=== PATIENT | male | born 1950 | race Caucasian/White ===

== ENCOUNTER 2016-11-20 13:19 | Inpatient (IN) ==
[2016-11-20] MEDS ORDERED: Nitroglycerin 1 INCH/GM PACKET TP ONE (13:37)
[2016-11-20] MEDS ORDERED: Furosemide 40 MG/4 ML VIAL IVP ONE (13:42)
[2016-11-20] MEDS ORDERED: Ipratropium/Albuterol Neb 3 ML IH ONE (13:46)
--- NOTE | 2016-11-20 13:46 | Emergency Department Note ---
Disposition Clinical Impression: Hypoxia CHF exacerbation Qualifiers: Congestive heart failure type: systolic Qualified Code(s): I50.23 - Acute on chronic systolic (congestive) heart failure Atrial fibrillation Qualifiers: Atrial fibrillation type: chronic Qualified Code(s): I48.2 - Chronic atrial fibrillation Disposition: Admitted As Inpatient Condition: Fair Time of Disposition: 16:43 SOB HPI - General Chief Complaint: ED Shortness of Breath/Dyspnea Stated Complaint: Edema ,MIKE Time Seen by Provider: 11/20/16 13:35 Source: patient Limitations: no limitations Nursing Notes Reviewed: Yes Vital Signs Reviewed: Yes - History of Present Illness 66-year-old male with PMH of CHF, atrial fibrillation, tobacco use presents to the emergency department complaining of "fluid on my lungs" patient states that he was hospitalized for the same thing in August at which time he was told he has CHF and he has been taking furosemide 40 mg twice a day. He states that over the last few weeks he has had increased sleep breathing especially when he goes up stairs, stopping [address] up[address] The shortness of breath also interferes with activities of daily living. He states that his breathing is better when he is lying flat or sitting down. He also notes that he has been retaining fluid in his abdomen and his legs "feel like rocks." On arrival he is tachycardic with heart rate in the 120s to 130s and hypertensive and short of breath. Patient states that he is still trying to relax after arrival. - Related Data Home Medications Medication Instructions Recorded Confirmed Aspirin Enteric Coated [Aspirin EC] 81 mg PO DAILY 09/05/16 09/25/16 Garcinia Cambogia 1 each PO DAILY 09/05/16 09/25/16 Multivit-Min/FA/Lycopen/Lutein 1 each PO DAILY 09/05/16 09/25/16 [Centrum Silver Tablet] Furosemide [Lasix] 40 mg PO BID 11/20/16 11/20/16 Lisinopril [Zestril] 5 mg PO DAILY 11/20/16 11/20/16 Previous Rx's Medication Instructions Recorded Atorvastatin [Lipitor] 40 mg PO HS 30 Days 09/07/16 Carvedilol [Coreg] 12.5 mg PO BIDWM 30 Days 09/07/16 Warfarin [Coumadin] 5 mg PO 1800 14 Days 09/07/16 Allergies Allergy/AdvReac Type Severity Reaction Status Date / Time No Known Allergies Allergy Verified 09/05/16 13:29 Constitutional: Reports: weight change. Denies: fever, chills Cardiovascular: Reports: chest pain, palpitations, dyspnea on exertion, edema Respiratory: Reports: cough, dyspnea Gastrointestinal: Reports: abdominal pain. Denies: nausea, vomiting Past Medical History - Past Medical History Source: patient Medical history: Reports: cancer, cardiomyopathy, CHF, coronary artery disease, hyperlipidemia, hypertension Surgical history: Reports: no surgical history Psychiatric history: Reports: no psych history - Social History Smoking Status: Current every day smoker Smokeless Tobacco Status: No Alcohol use: Reports: occasionally Drug use: Reports: none Physical Exam - General Limitations: no limitations General appearance: alert, anxious, in distress, obese - Head Head exam: atraumatic, normocephalic, normal inspection - ENT ENT exam: mucous membranes moist - Neck Neck exam: Present: normal inspection, full ROM, trachea midline - Chest Chest inspection: Present: normal inspection, symmetric chest wall rise - Respiratory Respiratory exam: Present: respiratory distress, wheezes - Expanded Respiratory Exam Location: wheezes: Left, Right, rhonchi: Left, Right - Cardiovascular Cardiovascular exam: Present: tachycardia - Abdominal Exam Abdominal exam: Present: tenderness, distention, normal bowel sounds Abdominal tenderness: Present: diffuse - Extremities Exam Extremities exam: Present: pedal edema - Expanded Lower Extremity Exam Lower leg exam: Present: tenderness, swelling. Absent: crepitus, erythema Neurovascular/Tendon exam: Absent: pulse deficit - Neurological Exam Neurological exam: Present: alert, oriented X3. Absent: motor sensory deficit - Psychiatric Psychiatric exam: Present: normal affect, normal mood - Skin Skin exam: Present: warm, dry, intact, normal color. Absent: diaphoresis, erythema Course Course Narrative: 66-year-old male with PMH of CHF, atrial fibrillation, tobacco use presents to the emergency department complaining of "fluid on my lungs" patient states that he was hospitalized for the same thing in August at which time he was told he has CHF and he has been taking furosemide 40 mg twice a day. He states that over the last few weeks he has had increased sleep breathing especially when he goes up stairs. He states that his breathing is better when he is lying flat or sitting down. He also notes that he has been retaining fluid in his abdomen and his legs "feel like rocks." On arrival he is tachycardic with heart rate in the 120s to 130s and hypertensive and short of breath. Patient states that he is still trying to relax after arrival. He is able to converse in both EKG reveals the patient is in A. fib with RVR. His oxygen saturation 78% on room air. Patient was placed on oxygen via nasal cannula to order chest pain lab work ordered, chest x-ray, 80 mg of Lasix IV push and Cardizem 20 mg IV push. On reentering the room the patient's heart rate was noted to be in the 90's, will hold on Cardizem for now and monitor rate. Upon review of patient's previous admission an echo revealed severe LV systolic dysfunction with an LVEF of 30% with global LV hypokinesis. He presented with similar symptoms at that time including edema bilateral lower extremities. - Reevaluation(s) Reevaluation #1: Patient states that he is able to breathe better after breathing treatment. His heart rate continues to stay in the 90s and his blood pressure is in the 120s. The patient remains hypoxic on 3 L of oxygen via nasal cannula with oxygen saturations 89-90%. Potassium noted to be 3.4. Since we have given the patient a high dose of lasix, we will replace potassium with 40meq oral potassium. Patient also has an INR of 5.4. Was discussed with the patient and he is agreeable to admission this time due to continued shortness of breath, hypoxia on 3 L of oxygen and fluid overload. Will contact the hospitalist service for admission of the patient. Time: 15:04 - Consultations Consultation #1: The patient's case was discussed with Dr. Em. She has accepted the patient for admission to hospitalist service. Time: 15:12 Vital Signs Temperature 98.8 F 11/20/16 13:23 Pulse Rate 110 11/20/16 13:23 Respiratory Rate 18 11/20/16 13:23 Blood Pressure 149/101 11/20/16 13:23 O2 Sat by Pulse Oximetry 94 L 11/20/16 13:23 Temperature 98.8 F 11/20/16 13:23 Pulse Rate 97 11/20/16 15:29 Respiratory Rate 14 11/20/16 15:29 Blood Pressure 120/101 11/20/16 15:29 O2 Sat by Pulse Oximetry 91 L 11/20/16 15:29 Oxygen Delivery Oxygen Delivery Nasal Cannula Shortness of Breath/Dyspnea - Medical Records Medical records reviewed: Yes I reviewed the patient's medical records. - Lab Data Lab results reviewed: Yes I reviewed the patient's lab results. Result diagrams: 11/20/16 13:50 11/20/16 13:50 Lab Results 11/20/16 11/20/16 11/20/16 Range/Units 13:50 13:50 13:50 WBC 7.2 (4.3-11.1) K/mcL RBC 4.00 L (4.19-5.50) M/mcL Hgb 12.3 L (12.9-16.9) g/dL Hct 38.8 (37.5-50.1) % MCV 97.0 (83.0-100.0) fL MCH 30.8 (28.0-33.3) pg MCHC 31.7 (31.6-35.5) g/dL RDW 21.2 H (11.5-14.5) % Plt Count 226 (140-400) K/mcL MPV 9.8 (9.4-12.4) fL Immature Gran % 0.4 (0-4) % Seg Neutrophils % 68.9 % Lymphocytes % 15.0 % Monocytes % 14.3 % Eosinophils % 0.8 % Basophils % 0.6 % Neutrophils # 4.9 (1.6-8.9) K/mcL Lymphocytes # 1.1 (0.6-4.6) K/mcL Monocytes # 1.0 (0.0-1.3) K/mcL Eosinophils # 0.1 (0.0-0.6) K/mcL Basophils # 0.0 (0.0-0.2) K/mcL Nucleated RBCs/100 WBC 0.8 H (0) /100 WBC PT 60.9 H* (9.4-12.1) Seconds INR 5.4 H* APTT 41.9 H (26.0-36.0) Seconds Sodium (136-145) mEq/L Potassium (3.5-4.5) mEq/L Chloride (98-109) mEq/L Carbon Dioxide (19-29) mEq/L BUN (8-26) mg/dL Creatinine (0.72-1.25) mg/dL Est GFR ( Amer) (> 60) Est GFR (Non-Af Amer) (> 60) BUN/Creatinine Ratio (6-26) Glucose (70-99) mg/dL Calculated Osmolality (280-300) Calcium (8.6-10.8) mg/dL Troponin I (0-0.03) ng/mL B-Natriuretic Peptide 1218 H (0-100) pg/mL 11/20/16 11/20/16 Range/Units 13:50 13:50 WBC (4.3-11.1) K/mcL RBC (4.19-5.50) M/mcL Hgb (12.9-16.9) g/dL Hct (37.5-50.1) % MCV (83.0-100.0) fL MCH (28.0-33.3) pg MCHC (31.6-35.5) g/dL RDW (11.5-14.5) % Plt Count (140-400) K/mcL MPV (9.4-12.4) fL Immature Gran % (0-4) % Seg Neutrophils % % Lymphocytes % % Monocytes % % Eosinophils % % Basophils % % Neutrophils # (1.6-8.9) K/mcL Lymphocytes # (0.6-4.6) K/mcL Monocytes # (0.0-1.3) K/mcL Eosinophils # (0.0-0.6) K/mcL Basophils # (0.0-0.2) K/mcL Nucleated RBCs/100 WBC (0) /100 WBC PT (9.4-12.1) Seconds INR APTT (26.0-36.0) Seconds Sodium 136 (136-145) mEq/L Potassium 3.4 L (3.5-4.5) mEq/L Chloride 95 L (98-109) mEq/L Carbon Dioxide 30 H (19-29) mEq/L BUN 8 (8-26) mg/dL Creatinine 0.76 (0.72-1.25) mg/dL Est GFR ( Amer) > 60 (> 60) Est GFR (Non-Af Amer) > 60 (> 60) BUN/Creatinine Ratio 11 (6-26) Glucose 124 H (70-99) mg/dL Calculated Osmolality 282 (280-300) Calcium 8.4 L (8.6-10.8) mg/dL Troponin I 0.04 H* (0-0.03) ng/mL B-Natriuretic Peptide (0-100) pg/mL - Radiology Data Radiology results reviewed: Yes I reviewed the patient's radiology results. Chest X-Ray 11/20/16 13:38 IMPRESSION: Cardiomegaly with pulmonary edema as well as right pleural effusion. D/ / Samantha Yeung Cha, MD / Samantha Yeung Cha, MD Interpreting Provider: Samantha Yeung Cha, MD - EKG Data EKG attestation: Yes I reviewed and interpreted this EKG. EKG results narrative: Atrial fibrillation with RVR. ventricular rate 126 bpm, QRS 104ms, QT 318ms, Interpretation: Reports: unchanged when compared to prior tracing (date)
[2016-11-20 14:03] LABS: Basophils % 0.6 %; Eosinophils # 0.1 K/mcL (0.0-0.6); Eosinophils % 0.8 %; Hematocrit 38.8 % (37.5-50.1); Hemoglobin 12.3 g/dL (12.9-16.9); Immature Granulocytes % 0.4 % (0-4); Lymphocytes # 1.1 K/mcL (0.6-4.6); Mean Corpuscular HGB Conc 31.7 g/dL (31.6-35.5); Mean Corpuscular Hemoglobin 30.8 pg (28.0-33.3); Mean Platelet Volume 9.8 fL (9.4-12.4); Monocytes % 14.3 %; Neutrophils # 4.9 K/mcL (1.6-8.9); Nucleated Red Blood Cells 0.8 /100 WBC (0); Platelet Count 226 K/mcL (140-400); Red Cell Distribution Width 21.2 % (11.5-14.5); Segmented Neutrophils % 68.9 %
[2016-11-20 14:06] LABS: Activated Partial Thrombo Time 41.9 Seconds (26.0-36.0)
[2016-11-20 14:11] LABS: BUN/Creatinine Ratio 11 (6-26); Blood Urea Nitrogen 8 mg/dL (8-26); Calcium 8.4 mg/dL (8.6-10.8); Carbon Dioxide 30 mEq/L (19-29); Chloride 95 mEq/L (98-109); Glucose 124 mg/dL (70-99); Osmolality,Calculated 282 (280-300); Potassium 3.4 mEq/L (3.5-4.5); Sodium 136 mEq/L (136-145); eGFR For African Americans > 60 (> 60); eGFR For Non-African Americans > 60 (> 60)
[2016-11-20 14:20] LABS: INR 5.4; Prothrombin Time 60.9 Seconds (9.4-12.1)
[2016-11-20] MEDS ORDERED: Potassium Chloride Elixir 20 MEQ/15 ML UDC PO ONE (14:53)
--- NOTE | 2016-11-20 15:08 | Emergency Department Note ---
Disposition Clinical Impression: CHF exacerbation, Hypoxia, Atrial fibrillation Disposition: Admitted As Inpatient Condition: Fair General Adult HPI - General Chief complaint: ED Shortness of Breath/Dyspnea Stated complaint: Edema ,MIKE Time Seen by Provider: 11/20/16 13:35 Source: patient Limitations: no limitations - History of Present Illness Pain Scale: 0 - Related Data Home Medications Medication Instructions Recorded Confirmed Aspirin Enteric Coated [Aspirin EC] 81 mg PO DAILY 09/05/16 11/20/16 Garcinia Cambogia 1 each PO DAILY 09/05/16 11/20/16 Multivit-Min/FA/Lycopen/Lutein 1 each PO DAILY 09/05/16 11/20/16 [Centrum Silver Tablet] Furosemide [Lasix] 40 mg PO BID 11/20/16 11/20/16 Lisinopril [Zestril] 5 mg PO DAILY 11/20/16 11/20/16 Previous Rx's Medication Instructions Recorded Atorvastatin [Lipitor] 40 mg PO HS 30 Days 09/07/16 Carvedilol [Coreg] 12.5 mg PO BIDWM 30 Days 09/07/16 Warfarin [Coumadin] 5 mg PO 1800 14 Days 09/07/16 Allergies Allergy/AdvReac Type Severity Reaction Status Date / Time No Known Allergies Allergy Verified 09/05/16 13:29 Constitutional: Reports: weight change. Denies: fever, chills Cardiovascular: Reports: chest pain, palpitations, dyspnea on exertion, edema Respiratory: Reports: cough, dyspnea Gastrointestinal: Reports: abdominal pain. Denies: nausea, vomiting Past Medical History - Past Medical History Medical history: Reports: cancer, cardiomyopathy, CHF, coronary artery disease, hyperlipidemia, hypertension Surgical history: Reports: no surgical history Psychiatric history: Reports: no psych history - Social History Smoking Status: Current every day smoker Smokeless Tobacco Status: No Alcohol use: Reports: occasionally Drug use: Reports: none Physical Exam - General Limitations: no limitations General appearance: alert, anxious, in distress, obese Course - Reevaluation(s) Reevaluation #1: I saw the patient with the resident, Dr. Dwyer. Patient presents with a complaint of shortness of breath it has been building up over the past couple weeks but particularly worse over the past couple of days. He notes a lot of edema buildup in his legs. He has been short of breath. He is having trouble even walking up his stairs stating that he has to stop 4 times to get to the top of the steps. On physical exam is got rales in his lungs and is a lot of edema in his legs. We see that he is in atrial fibrillation and initially was RVR but seemed to go down to regular rate with oxygenation. Chest x-ray shows pulmonary edema. He has an oxygen requirement. We gave him 80 of Lasix IV. We will give him some nitro paste (initially he refused nitro paste but after I had a talk with him about its usefulness he agreed to take it.). We will arrange to have the patient admitted to the hospital. Time: 15:08 Vital Signs Temperature 98.8 F 11/20/16 13:23 Pulse Rate 110 11/20/16 13:23 Respiratory Rate 18 11/20/16 13:23 Blood Pressure 149/101 11/20/16 13:23 O2 Sat by Pulse Oximetry 94 L 11/20/16 13:23 Temperature 97.6 F 11/22/16 07:11 Pulse Rate 93 11/22/16 07:11 Respiratory Rate 16 11/22/16 07:11 Blood Pressure 105/61 11/22/16 07:11 O2 Sat by Pulse Oximetry 87 L 11/22/16 07:11 Oxygen Delivery Oxygen Delivery Nasal Cannula Medical Decision Making - Lab Data Result diagrams: 11/21/16 04:11 11/22/16 05:21 Lab Results 11/20/16 11/20/16 11/20/16 Range/Units 13:50 13:50 13:50 WBC 7.2 (4.3-11.1) K/mcL RBC 4.00 L (4.19-5.50) M/mcL Hgb 12.3 L (12.9-16.9) g/dL Hct 38.8 (37.5-50.1) % MCV 97.0 (83.0-100.0) fL MCH 30.8 (28.0-33.3) pg MCHC 31.7 (31.6-35.5) g/dL RDW 21.2 H (11.5-14.5) % Plt Count 226 (140-400) K/mcL MPV 9.8 (9.4-12.4) fL Immature Gran % 0.4 (0-4) % Seg Neutrophils % 68.9 % Lymphocytes % 15.0 % Monocytes % 14.3 % Eosinophils % 0.8 % Basophils % 0.6 % Neutrophils # 4.9 (1.6-8.9) K/mcL Lymphocytes # 1.1 (0.6-4.6) K/mcL Monocytes # 1.0 (0.0-1.3) K/mcL Eosinophils # 0.1 (0.0-0.6) K/mcL Basophils # 0.0 (0.0-0.2) K/mcL Nucleated RBCs/100 WBC 0.8 H (0) /100 WBC Reactive Lymphocytes (Not Present) Platelet Estimate (Normal) Large Platelets (Not Present) Polychromasia (Not Present) Hypochromasia (Not Present) Anisocytosis (Not Present) Microcytosis (Not Present) Macrocytosis (Not Present) PT 60.9 H* (9.4-12.1) Seconds INR 5.4 H* APTT 41.9 H (26.0-36.0) Seconds Sodium (136-145) mEq/L Potassium (3.5-4.5) mEq/L Chloride (98-109) mEq/L Carbon Dioxide (19-29) mEq/L BUN (8-26) mg/dL Creatinine (0.72-1.25) mg/dL Est GFR ( Amer) (> 60) Est GFR (Non-Af Amer) (> 60) BUN/Creatinine Ratio (6-26) Glucose (70-99) mg/dL Calculated Osmolality (280-300) Calcium (8.6-10.8) mg/dL Phosphorus (2.3-4.7) mg/dL Magnesium (1.6-2.6) mg/dL Troponin I (0-0.03) ng/mL B-Natriuretic Peptide 1218 H (0-100) pg/mL 11/20/16 11/20/16 11/20/16 Range/Units 13:50 13:50 13:50 WBC (4.3-11.1) K/mcL RBC (4.19-5.50) M/mcL Hgb (12.9-16.9) g/dL Hct (37.5-50.1) % MCV (83.0-100.0) fL MCH (28.0-33.3) pg MCHC (31.6-35.5) g/dL RDW (11.5-14.5) % Plt Count (140-400) K/mcL MPV (9.4-12.4) fL Immature Gran % (0-4) % Seg Neutrophils % % Lymphocytes % % Monocytes % % Eosinophils % % Basophils % % Neutrophils # (1.6-8.9) K/mcL Lymphocytes # (0.6-4.6) K/mcL Monocytes # (0.0-1.3) K/mcL Eosinophils # (0.0-0.6) K/mcL Basophils # (0.0-0.2) K/mcL Nucleated RBCs/100 WBC (0) /100 WBC Reactive Lymphocytes (Not Present) Platelet Estimate (Normal) Large Platelets (Not Present) Polychromasia (Not Present) Hypochromasia (Not Present) Anisocytosis (Not Present) Microcytosis (Not Present) Macrocytosis (Not Present) PT (9.4-12.1) Seconds INR APTT (26.0-36.0) Seconds Sodium 136 (136-145) mEq/L Potassium 3.4 L (3.5-4.5) mEq/L Chloride 95 L (98-109) mEq/L Carbon Dioxide 30 H (19-29) mEq/L BUN 8 (8-26) mg/dL Creatinine 0.76 (0.72-1.25) mg/dL Est GFR ( Amer) > 60 (> 60) Est GFR (Non-Af Amer) > 60 (> 60) BUN/Creatinine Ratio 11 (6-26) Glucose 124 H (70-99) mg/dL Calculated Osmolality 282 (280-300) Calcium 8.4 L (8.6-10.8) mg/dL Phosphorus (2.3-4.7) mg/dL Magnesium 1.5 L (1.6-2.6) mg/dL Troponin I 0.04 H* (0-0.03) ng/mL B-Natriuretic Peptide (0-100) pg/mL 11/21/16 11/21/16 11/21/16 Range/Units 04:11 04:11 04:11 WBC 7.7 (4.3-11.1) K/mcL RBC 3.75 L (4.19-5.50) M/mcL Hgb 11.8 L (12.9-16.9) g/dL Hct 36.2 L (37.5-50.1) % MCV 96.5 (83.0-100.0) fL MCH 31.5 (28.0-33.3) pg MCHC 32.6 (31.6-35.5) g/dL RDW 21.3 H (11.5-14.5) % Plt Count 214 (140-400) K/mcL MPV 9.8 (9.4-12.4) fL Immature Gran % 0.5 (0-4) % Seg Neutrophils % 61.5 % Lymphocytes % 17.7 % Monocytes % 18.6 % Eosinophils % 0.9 % Basophils % 0.8 % Neutrophils # 4.7 (1.6-8.9) K/mcL Lymphocytes # 1.4 (0.6-4.6) K/mcL Monocytes # 1.4 H (0.0-1.3) K/mcL Eosinophils # 0.1 (0.0-0.6) K/mcL Basophils # 0.1 (0.0-0.2) K/mcL Nucleated RBCs/100 WBC 0.9 H (0) /100 WBC Reactive Lymphocytes Present A (Not Present) Platelet Estimate Normal (Normal) Large Platelets Present A (Not Present) Polychromasia 1+ A (Not Present) Hypochromasia Present A (Not Present) Anisocytosis 2+ A (Not Present) Microcytosis Present A (Not Present) Macrocytosis Present A (Not Present) PT 50.1 H* (9.4-12.1) Seconds INR 4.4 H* APTT (26.0-36.0) Seconds Sodium 137 (136-145) mEq/L Potassium 3.4 L (3.5-4.5) mEq/L Chloride 98 (98-109) mEq/L Carbon Dioxide 30 H (19-29) mEq/L BUN 11 (8-26) mg/dL Creatinine 0.79 (0.72-1.25) mg/dL Est GFR ( Amer) > 60 (> 60) Est GFR (Non-Af Amer) > 60 (> 60) BUN/Creatinine Ratio 14 (6-26) Glucose 99 (70-99) mg/dL Calculated Osmolality 283 (280-300) Calcium 8.2 L (8.6-10.8) mg/dL Phosphorus 3.6 (2.3-4.7) mg/dL Magnesium 1.4 L (1.6-2.6) mg/dL Troponin I (0-0.03) ng/mL B-Natriuretic Peptide (0-100) pg/mL 11/21/16 11/21/16 Range/Units 04:11 04:11 WBC (4.3-11.1) K/mcL RBC (4.19-5.50) M/mcL Hgb (12.9-16.9) g/dL Hct (37.5-50.1) % MCV (83.0-100.0) fL MCH (28.0-33.3) pg MCHC (31.6-35.5) g/dL RDW (11.5-14.5) % Plt Count (140-400) K/mcL MPV (9.4-12.4) fL Immature Gran % (0-4) % Seg Neutrophils % % Lymphocytes % % Monocytes % % Eosinophils % % Basophils % % Neutrophils # (1.6-8.9) K/mcL Lymphocytes # (0.6-4.6) K/mcL Monocytes # (0.0-1.3) K/mcL Eosinophils # (0.0-0.6) K/mcL Basophils # (0.0-0.2) K/mcL Nucleated RBCs/100 WBC (0) /100 WBC Reactive Lymphocytes (Not Present) Platelet Estimate (Normal) Large Platelets (Not Present) Polychromasia (Not Present) Hypochromasia (Not Present) Anisocytosis (Not Present) Microcytosis (Not Present) Macrocytosis (Not Present) PT (9.4-12.1) Seconds INR APTT (26.0-36.0) Seconds Sodium (136-145) mEq/L Potassium (3.5-4.5) mEq/L Chloride (98-109) mEq/L Carbon Dioxide (19-29) mEq/L BUN (8-26) mg/dL Creatinine (0.72-1.25) mg/dL Est GFR ( Amer) (> 60) Est GFR (Non-Af Amer) (> 60) BUN/Creatinine Ratio (6-26) Glucose (70-99) mg/dL Calculated Osmolality (280-300) Calcium (8.6-10.8) mg/dL Phosphorus (2.3-4.7) mg/dL Magnesium (1.6-2.6) mg/dL Troponin I 0.04 H* (0-0.03) ng/mL B-Natriuretic Peptide 1989 H (0-100) pg/mL Attestation Statement - Attestation Attestation: I, Dr. Gordon, examined this patient [id number] and my medical decision- making was reviewed with Dr. rollins, Resident Physician. I agree with the documented findings, disposition and treatment plan as described except to the extent set forth below. Please see my progress notes for details.
[2016-11-20] MEDS ORDERED: Ondansetron 4 MG/2 ML VIAL IVP PRN (16:59)
[2016-11-20] MEDS ORDERED: Naloxone 0.4 MG/ML INJ IVP PRN (16:59)
[2016-11-20] MEDS ORDERED: Acetaminophen 325 MG TABLET PO PRN (16:59)
--- NOTE | 2016-11-20 17:07 | Internal Med History&Physical ---
Date of Encounter: 11/20/16 Time of Encounter: 16:30 Assessment and Plan (1) Acute respiratory failure with hypoxemia Current visit: Yes Status: Acute Secondary to acute systolic heart failure exacerbation with right pleural effusion. Patient desat to 78% on room air in the ED. Chest x-ray revealed cardiomegaly with pulmonary edema and right pleural effusion. Continue IV Lasix twice a day, fluid restriction, coreg, strict I/O. (2) Acute systolic heart failure Current visit: Yes Status: Acute August 2016 echocardiogram revealed severely LV systolic dysfunction, EF 30%, global LV hypokinesis, moderate to severely dilated, severely dilated right atrium. Patient is known to be noncompliant with fluid and dietary restrictions. Continue Lasix, beta arya, fluid restriction, strict ins and outs. (3) Atrial flutter with rapid ventricular response Current visit: Yes Status: Acute ED EKG reviewed by me and showed atrial flutter with a rapid ventricular response heart rate 124. RVR secondary to pulmonary edema. After IV Lasix and good diuresis, his heart rate is down to 91. Continue IV Lasix and resume home dose of Coreg. (4) Supratherapeutic INR Current visit: Yes Status: Acute INR is 5.4. Patient takes warfarin at home. No bleeding. No recent head injuries. Hold home dose of warfarin. Close monitoring of INR. (5) Pleural effusion Current visit: No Status: Acute Conjunctivae show right-sided pleural effusion. Likely secondary to heart failure exacerbation. Plan as above (6) Hypertension Current visit: No Status: Acute Blood pressure on admission was 149/101. High blood pressure secondary to fluid overload. After IV Lasix, his blood pressure is now 137/75. Continue home dose of lisinopril. Qualifiers: Hypertension type: essential hypertension Qualified Code(s): I10 - Essential (primary) hypertension (7) Nonischemic cardiomyopathy Current visit: No Status: Acute 2013 -left heart catheterization showing mild to moderate CAD and LVEF 30%. patient presented with NSTEMI. plan as above. (8) Lymphoma Current visit: No Status: Chronic Qualifiers: Lymphoma type: unspecified type Lymphoma site: unspecified region Qualified Code(s): C85.90 - Non-Hodgkin lymphoma, unspecified, unspecified site (9) Obesity Current visit: No Status: Acute BMI 34. Outpatient weight loss program. Qualifiers: Obesity type: unspecified obesity type Obesity severity: non-morbid Qualified Code(s): E66.9 - Obesity, unspecified Internal Medicine - H&P: HPI Chief complaint: Shortness of breath and 3 Toprol for the past 3 weeks. Admitted From: Home Plans for Post Hospital Care: Home History of present illness: Mr. Ayala is a 66 year old male with past medical history of severe systolic heart failure with LVEF 30% in August 2016, NICMP, atrial flutter on Coumadin , CAD, hypertension, PVD, and lymphoma. patient admits to being noncompliant with fluid restriction. He drinks a lot of rum and coke. For the past 3 weeks , the patient develped progressive shortness of breath associated with fluid overload in his leg, abdomen and lungs. positive productive cough of clear sputum. No hemoptysis. No chest pain. Mild abdominal pain from fluid building up in his abdomen He did not see his primary care physician because he knew his doctor will send him to the ER. no bleeding. No nausea. No vomiting. No syncope. No focal deficit. No vision problems. Patient is adopted. In our ED, patient was hypoxemic SaO2 78% on room air, went up to 92% on 3 L nasal cannula, EKG show Atrial flutter with rapid ventricular response, rate 124. Patient received Lasix 80 mg IV 1 with good diuresis. August 2016 echocardiogram revealed severely LV systolic dysfunction, EF 30%, global LV hypokinesis, moderate to severely dilated, severely dilated right atrium. 2013 -left heart catheterization showing mild to moderate CAD and LVEF 30%. Past Med Surg Social Fam HX - Past Medical History Medical history: cancer, cardiomyopathy, CHF, coronary artery disease, hyperlipidemia, hypertension Psychiatric history: no psych history - Past Surgical History Surgical History: no surgical history - Social History Smoking Status: Current every day smoker Smokeless Tobacco Status: No Alcohol use: occasionally Drug use: none - Family History Mother Adopted: Yes Living Status: Still Living Internal Medicine - H&P: Meds Aspirin Enteric Coated [Aspirin EC] 81 mg PO DAILY 09/05/16 [History] Garcinia Cambogia 1 each PO DAILY 09/05/16 [History] Multivit-Min/FA/Lycopen/Lutein [Centrum Silver Tablet] 1 each PO DAILY 09/05/16 [History] Atorvastatin [Lipitor] 40 mg PO HS 30 Days 09/07/16 [Rx] Carvedilol [Coreg] 12.5 mg PO BIDWM 30 Days 09/07/16 [Rx] Warfarin [Coumadin] 5 mg PO 1800 14 Days 09/07/16 [Rx] Furosemide [Lasix] 40 mg PO BID 11/20/16 [History] Lisinopril [Zestril] 5 mg PO DAILY 11/20/16 [History] Allergies No Known Allergies Allergy (Verified 09/05/16 13:29) All Systems PM: A 10-system review of systems was performed and is negative for pertinent findings except as documented above in the HPI. - Constitutional Vitals: Temp Pulse Resp BP Pulse Ox 97.6 F 98 16 137/75 90 L 11/20/16 17:01 11/20/16 17:01 11/20/16 17:01 11/20/16 17:01 11/20/16 17:01 General appearance: Present: cooperative, A&O X 3, pleasant, no acute distress, obese, answers questions appropriately - Eye Eye exam: Present: PERRL, sclera anicteric - ENT ENT exam: Present: mucous membranes moist - Neck Neck exam general surgery: Present: supple, trachea midline. Absent: lymphadenopathy - Respiratory Additional comments: Decreased air entry right lung base. crackles AT Left lung base. No wheezes. - Cardiovascular Cardiovascular exam: Present: tachycardia - GI/Abdominal GI/Abdominal exam: Present: normal bowel sounds, soft. Absent: distended, tenderness Additional comments: Abdominal wall edema. - Extremities Exam Additional comments: 3+ LE edema up to the abdomen. - Back Exam Back exam: Absent: CVA tenderness (L), CVA tenderness (R) - Neurological Exam Neurological exam: Present: alert, oriented X3, no focal deficits. Absent: facial droop, speech deficit - Skin Skin exam: Present: intact Internal Med - H&P Results - Labs CBC & Chem 7: 11/20/16 13:50 11/20/16 13:50
[2016-11-20] MEDS: Furosemide 40 MG TABLET PO SCH (18:57)
[2016-11-21 04:47] LABS: Basophils # 0.1 K/mcL (0.0-0.2); Basophils % 0.8 %; Eosinophils # 0.1 K/mcL (0.0-0.6); Eosinophils % 0.9 %; Hematocrit 36.2 % (37.5-50.1); Hemoglobin 11.8 g/dL (12.9-16.9); Immature Granulocytes % 0.5 % (0-4); Lymphocytes # 1.4 K/mcL (0.6-4.6); Lymphocytes % 17.7 %; Mean Corpuscular HGB Conc 32.6 g/dL (31.6-35.5); Mean Corpuscular Hemoglobin 31.5 pg (28.0-33.3); Mean Corpuscular Volume 96.5 fL (83.0-100.0); Mean Platelet Volume 9.8 fL (9.4-12.4); Monocytes # 1.4 K/mcL (0.0-1.3); Monocytes % 18.6 %; Neutrophils # 4.7 K/mcL (1.6-8.9); Nucleated Red Blood Cells 0.9 /100 WBC (0); Platelet Count 214 K/mcL (140-400); Red Blood Count 3.75 M/mcL (4.19-5.50); Red Cell Distribution Width 21.3 % (11.5-14.5); Segmented Neutrophils % 61.5 %
[2016-11-21 04:54] LABS: BUN/Creatinine Ratio 14 (6-26); Blood Urea Nitrogen 11 mg/dL (8-26); Calcium 8.2 mg/dL (8.6-10.8); Carbon Dioxide 30 mEq/L (19-29); Chloride 98 mEq/L (98-109); Glucose 99 mg/dL (70-99); Magnesium 1.4 mg/dL (1.6-2.6); Osmolality,Calculated 283 (280-300); Phosphorous 3.6 mg/dL (2.3-4.7); Potassium 3.4 mEq/L (3.5-4.5); Sodium 137 mEq/L (136-145); eGFR For African Americans > 60 (> 60); eGFR For Non-African Americans > 60 (> 60)
[2016-11-21 04:58] LABS: INR 4.4; Prothrombin Time 50.1 Seconds (9.4-12.1)
[2016-11-21 05:22] LABS: Anisocytosis 2+ (Not Present); Hypochromasia Present (Not Present); Macrocytosis Present (Not Present)
[2016-11-21 05:23] LABS: Large Platelets Present (Not Present); Microcytosis Present (Not Present); Platelet Estimate Normal (Normal); Polychromasia 1+ (Not Present); Reactive Lymphocytes Present (Not Present)
[2016-11-21] MEDS: Furosemide 40 MG TABLET PO SCH (08:20)
[2016-11-21] MEDS: Aspirin Enteric Coated 81 MG Tablet PO SCH (08:20)
[2016-11-21] MEDS ORDERED: Furosemide 40 MG TABLET PO SCH ×2 (10:30→18:00)
--- NOTE | 2016-11-21 10:34 | Internal Med Progress Note ---
Date of Encounter: 11/21/16 Time of Encounter: 10:31 - Assessment and plan (1) Acute respiratory failure with hypoxemia Current Visit: Yes Status: Acute Assessment and plan: Acute hypoxic respiratory failure secondary to pulmonary edema and bilateral pleural effusions right worse than left secondary to acute systolic CHF exacerbation, likely exacerbated by atrial fibrillation with RVR Ejection fraction of 30% Continue IV Lasix as the patient is not ready to be discharged home Monitor I's and O's and daily weight, start potassium due to hypokalemia High risk due to respiratory failure (2) Acute systolic heart failure Current Visit: Yes Status: Acute (3) Atrial flutter with rapid ventricular response Current Visit: Yes Status: Acute Assessment and plan: Stable on carvedilol Hold warfarin and recheck INR in the morning (4) Supratherapeutic INR Current Visit: Yes Status: Acute Assessment and plan: Still elevated 4.4 (5) Elevated troponin Current Visit: No Status: Acute (6) Tobacco use disorder Current Visit: No Status: Acute Assessment and plan: Smoking cessation counseling given, nicotine patch offered (7) Lymphoma Current Visit: No Status: Chronic Assessment and plan: Follow with oncology as outpatient Qualifiers: Lymphoma type: unspecified type Lymphoma site: unspecified region Qualified Code(s): C85.90 - Non-Hodgkin lymphoma, unspecified, unspecified site - Time Spent With Patient Greater than 35 minutes - Subjective Interval history: Still complains of shortness of breath, no abdominal pain, no dysuria. No chest pain. No fevers, no diarrhea. Has a dry cough, no headache - Constitutional Vitals: Temp Pulse Resp BP Pulse Ox 97.4 F L 90 17 132/78 91 L 11/21/16 06:54 11/21/16 06:54 11/21/16 06:54 11/21/16 06:54 11/21/16 06:54 General appearance: Present: cooperative, A&O X 3, pleasant, no acute distress, obese, answers questions appropriately - Head Head exam: Present: atraumatic, normocephalic - Eye Eye exam: Present: PERRL, conjuntiva pink, sclera anicteric Pupils: Present: PERRL - Neck Neck exam general surgery: Present: supple, trachea midline. Absent: lymphadenopathy - Respiratory Respiratory exam: Present: CTAB, rales (Blunted breath sounds on the right base , bilateral diffuse crackles and fine wheezing), wheezes. Absent: accessory muscle use, rhonchi - Cardiovascular Cardiovascular exam: Present: RRR, +S1, +S2. Absent: diastolic murmur, gallop, rubs, systolic murmur - GI/Abdominal GI/Abdominal exam: Present: normal bowel sounds, soft, no peritoneal signs. Absent: distended, tenderness - Extremities Exam Extremities exam: Present: warm, radial pulses palpable and symetrical. Absent : calf tenderness, cyanotic, pedal edema - Neurological Exam Neurological exam: Present: CN II-XII intact, oriented X3, no focal deficits. Absent: pronater drift, facial droop, speech deficit - Skin Skin exam: Present: dry, intact Internal Medicine: Result - Labs CBC & Chem 7: 11/21/16 04:11 11/21/16 04:11 Labs: Short CBC 11/21/16 Range/Units 04:11 WBC 7.7 (4.3-11.1) K/mcL Hgb 11.8 L (12.9-16.9) g/dL Hct 36.2 L (37.5-50.1) % Plt Count 214 (140-400) K/mcL Neutrophils # 4.7 (1.6-8.9) K/mcL BMP 11/21/16 04:11 Sodium 137 Potassium 3.4 L Chloride 98 Carbon Dioxide 30 H BUN 11 Creatinine 0.79 Glucose 99 Calcium 8.2 L Cardiac Enzymes 11/21/16 Range/Units 04:11 Troponin I 0.04 H* (0-0.03) ng/mL - ABG Interpretation ABG results: PT/INR, D-dimer PT 50.1 Seconds (9.4-12.1) H* 11/21/16 04:11 Consult Discharge Plan - Plan Referrals: German Olmedo DO [Primary Care Provider] - (Left message for an appointment..)
[2016-11-21] MEDS: Nicotine 21 MG PATCH.TD24 TD SCH (10:48)
[2016-11-21] MEDS: Furosemide 40 MG/4 ML VIAL IV SCH ×2 (10:48→19:56)
--- NOTE | 2016-11-21 11:42 | Electrocardiograph Report ---
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
[2016-11-21] MEDS: Magnesium Oxide 400 MG TABLET PO SCH (19:56)
[2016-11-22 06:34] LABS: INR 3.2; Prothrombin Time 35.6 Seconds (9.4-12.1)
[2016-11-22 06:46] LABS: BUN/Creatinine Ratio 18 (6-26); Blood Urea Nitrogen 13 mg/dL (8-26); Carbon Dioxide 30 mEq/L (19-29); Chloride 95 mEq/L (98-109); Glucose 103 mg/dL (70-99); Osmolality,Calculated 280 (280-300); Potassium 3.3 mEq/L (3.5-4.5); Sodium 135 mEq/L (136-145); eGFR For African Americans > 60 (> 60); eGFR For Non-African Americans > 60 (> 60)
[2016-11-22] MEDS: Nicotine 21 MG PATCH.TD24 TD SCH (08:43)
[2016-11-22] MEDS: Aspirin Enteric Coated 81 MG Tablet PO SCH (08:43)
[2016-11-22] MEDS: Furosemide 40 MG/4 ML VIAL IV SCH ×4 (08:44→17:29)
[2016-11-22] MEDS: Magnesium Oxide 400 MG TABLET PO SCH ×2 (08:48→21:08)
--- NOTE | 2016-11-22 11:10 | Internal Med Progress Note ---
Date of Encounter: 11/22/16 Time of Encounter: 11:07 - Assessment and plan (1) Acute respiratory failure with hypoxemia Current Visit: Yes Status: Acute Assessment and plan: Acute hypoxic respiratory failure secondary to pulmonary edema and bilateral pleural effusions right worse than left secondary to acute systolic CHF exacerbation, likely exacerbated by atrial fibrillation with RVR in combination with possible acute mild COPD exacerbation Ejection fraction of 30% Increased dose of IV Lasix up to 60 mg twice a day ( takes 40 mg twice a day at home) start Prednisone Monitor I's and O's and daily weight, start potassium due to hypokalemia Refusing to use oxygen High risk due to respiratory failure (2) Acute systolic heart failure Current Visit: Yes Status: Acute (3) Atrial flutter with rapid ventricular response Current Visit: Yes Status: Acute Assessment and plan: Stable on carvedilol Hold warfarin and recheck INR in the morning (4) Supratherapeutic INR Current Visit: Yes Status: Acute Assessment and plan: Still elevated 4.4 (5) Elevated troponin Current Visit: No Status: Acute (6) Tobacco use disorder Current Visit: No Status: Acute Assessment and plan: Smoking cessation counseling given, nicotine patch offered (7) Lymphoma Current Visit: No Status: Chronic Assessment and plan: Follow with oncology as outpatient Qualifiers: Lymphoma type: unspecified type Lymphoma site: unspecified region Qualified Code(s): C85.90 - Non-Hodgkin lymphoma, unspecified, unspecified site - Time Spent With Patient Greater than 35 minutes - Subjective Interval history: The patient's saturation of oxygen dropped last night as he refuses to use oxygen. Still complains of shortness of breath, no abdominal pain, no dysuria. No chest pain. No fevers, no diarrhea. Has a dry cough, no headache Leg edema present - Constitutional Vitals: Temp Pulse Resp BP Pulse Ox 97.6 F 93 16 105/61 87 L 11/22/16 07:11 11/22/16 07:11 11/22/16 07:11 11/22/16 07:11 11/22/16 07:11 General appearance: Present: cooperative, A&O X 3, pleasant, no acute distress, obese, answers questions appropriately - Head Head exam: Present: atraumatic, normocephalic - Eye Eye exam: Present: PERRL, conjuntiva pink, sclera anicteric Pupils: Present: PERRL - Neck Neck exam general surgery: Present: supple, trachea midline. Absent: lymphadenopathy - Respiratory Respiratory exam: Present: decreased breath sounds (Very diminished breath sounds with mild wheezing), CTAB. Absent: accessory muscle use, rales, rhonchi , wheezes - Cardiovascular Cardiovascular exam: Present: RRR, +S1, +S2. Absent: diastolic murmur, gallop, rubs, systolic murmur - GI/Abdominal GI/Abdominal exam: Present: normal bowel sounds, soft, no peritoneal signs. Absent: distended, tenderness - Extremities Exam Extremities exam: Present: pedal edema (+2 pitting edema both lower extremities) , warm, radial pulses palpable and symetrical. Absent: calf tenderness, cyanotic - Neurological Exam Neurological exam: Present: CN II-XII intact, oriented X3, no focal deficits. Absent: pronater drift, facial droop, speech deficit - Skin Skin exam: Present: dry, intact Internal Medicine: Result - Labs CBC & Chem 7: 11/21/16 04:11 11/22/16 05:21 Labs: BMP 11/22/16 05:21 Sodium 135 L Potassium 3.3 L Chloride 95 L Carbon Dioxide 30 H BUN 13 Creatinine 0.73 Glucose 103 H Calcium 8.0 L - ABG Interpretation ABG results: PT/INR, D-dimer PT 35.6 Seconds (9.4-12.1) H 11/22/16 05:21 Consult Discharge Plan - Plan Referrals: German Olmedo DO [Primary Care Provider] - (Left message for an appointment..)
[2016-11-22] MEDS: predniSONE 20 MG TABLET PO SCH (11:51)
[2016-11-22] MEDS: Ipratropium/Albuterol Neb 3 ML IH SCH ×3 (15:42→22:23)
[2016-11-23] MEDS: Ipratropium/Albuterol Neb 3 ML IH SCH ×2 (04:35→09:15)
[2016-11-23 06:53] LABS: INR 2.3; Prothrombin Time 25.8 Seconds (9.4-12.1)
[2016-11-23 07:08] LABS: BUN/Creatinine Ratio 17 (6-26); Blood Urea Nitrogen 14 mg/dL (8-26); Calcium 8.6 mg/dL (8.6-10.8); Carbon Dioxide 33 mEq/L (19-29); Chloride 94 mEq/L (98-109); Glucose 133 mg/dL (70-99); Osmolality,Calculated 286 (280-300); Potassium 3.7 mEq/L (3.5-4.5); Sodium 137 mEq/L (136-145); eGFR For African Americans > 60 (> 60); eGFR For Non-African Americans > 60 (> 60)
[2016-11-23 07:31] VITALS: BP 120/67
[2016-11-23] MEDS: predniSONE 20 MG TABLET PO SCH (07:44)
[2016-11-23] MEDS: Magnesium Oxide 400 MG TABLET PO SCH (07:44)
[2016-11-23] MEDS: Aspirin Enteric Coated 81 MG Tablet PO SCH (07:44)
[2016-11-23] MEDS: Furosemide 40 MG/4 ML VIAL IV SCH (07:45)
--- NOTE | 2016-11-23 08:36 | Discharge Summary ---
Date of Encounter: 11/23/16 Time of Encounter: 08:31 - Discharge Diagnosis (1) Acute respiratory failure with hypoxemia Priority: Primary Status: Acute Comments: Acute hypoxic respiratory failure secondary to pulmonary edema and bilateral pleural effusions right worse than left secondary to acute systolic CHF exacerbation, likely worsened by atrial fibrillation with RVR in combination with possible acute mild COPD exacerbation due to acute viral bronchitis Ejection fraction of 30% (2) Acute systolic heart failure Priority: Primary Status: Acute (3) Atrial flutter with rapid ventricular response Priority: Secondary Status: Acute (4) Supratherapeutic INR Priority: Primary Status: Acute Comments: INR was 5.4 upon admission, today is 2.3 He was not 5 mg daily of warfarin and will be discharged on 4 mg daily (5) Elevated troponin Priority: Secondary Status: Acute Comments: Likely secondary to demand ischemia (6) Tobacco use disorder Priority: Secondary Status: Acute Comments: Smoking cessation counseling given for 5 minutes (7) Lymphoma Priority: Secondary Status: Chronic Qualifiers: Lymphoma type: unspecified type Lymphoma site: unspecified region Qualified Code(s): C85.90 - Non-Hodgkin lymphoma, unspecified, unspecified site - Discharge Medications Prescriptions: Furosemide [Lasix] 40 mg PO BID 30 Days Potassium Chloride 10 meq PO DAILY #30 tab.er.prt PredniSONE 10 mg PO DAILY 12 Days Warfarin [Coumadin] 4 mg PO 1800 30 Days Home Medications: Aspirin Enteric Coated [Aspirin EC] 81 mg PO DAILY 09/05/16 [History] Garcinia Cambogia 1 each PO DAILY 09/05/16 [History] Multivit-Min/FA/Lycopen/Lutein [Centrum Silver Tablet] 1 each PO DAILY 09/05/16 [History] Atorvastatin [Lipitor] 40 mg PO HS 30 Days 09/07/16 [Rx] Carvedilol [Coreg] 12.5 mg PO BIDWM 30 Days 09/07/16 [Rx] Lisinopril [Zestril] 5 mg PO DAILY 11/20/16 [History] Furosemide [Lasix] 40 mg PO BID 30 Days 11/23/16 [Rx] Potassium Chloride 10 meq PO DAILY #30 tab.er.prt 11/23/16 [Rx] PredniSONE 10 mg PO DAILY 12 Days 11/23/16 [Rx] Warfarin [Coumadin] 4 mg PO 1800 30 Days 02/03/17 [Rx] Allergies/Adverse Reactions: Allergies No Known Allergies Allergy (Verified 09/05/16 13:29) Date of admission: 11/21/16 10:41 Primary care physician: German Olmedo DO - Patient Status Disposition: Home, Self-Care Condition: Good Overall status at discharge: patient is progressing back to baseline - Discharge Instructions Follow Up With: German Olmedo DO [Primary Care Provider] - (Left message for an appointment..) Additional Instructions: Follow with primary care physician within the next 7 days. Increase Lasix up to 60 mg in the morning and 40 mg in the afternoon. Continue prednisone taper. Decrease Coumadin down to 4 mg daily. Continue fluid restriction. Quit smoking - Diet and Activity Activity: increase activity as tolerated Diet: low fat, low cholesterol Hospital course: Mr. Ayala is a 66 year old male with past medical history of severe systolic heart failure with LVEF 30% in August 2016, NICMP, atrial flutter on Coumadin , CAD, hypertension, PVD, and lymphoma, the patient admited to being noncompliant with fluid restriction. He drinks a lot of rum and coke. For the past 3 weeks, the patient develped progressive shortness of breath associated with fluid overload in his leg, abdomen and lungs. positive productive cough of clear sputum. No hemoptysis. No chest pain. Mild abdominal pain from fluid building up in his abdomen He did not see his primary care physician because he knew his doctor will send him to the ER. no bleeding. No nausea. No vomiting. No syncope. No focal deficit. No vision problems. Patient is adopted. In our ED, patient was hypoxemic SaO2 78% on room air, went up to 92% on 3 L nasal cannula, EKG show Atrial flutter with rapid ventricular response, rate 124. Patient received Lasix 80 mg IV 1 with good diuresis. Chest x-ray showed right sided pleural effusion. August 2016 echocardiogram revealed severely LV systolic dysfunction, EF 30%, global LV hypokinesis, moderate to severely dilated, severely dilated right atrium. EKG showed atrial flutter with a rapid ventricular response heart rate 124. Patient is known to be noncompliant with fluid and dietary restrictions Was diagnosed with Acute hypoxic respiratory failure secondary to pulmonary edema and bilateral pleural effusions right worse than left secondary to acute systolic CHF exacerbation, likely exacerbated by atrial fibrillation with RVR in combination with possible acute mild COPD exacerbation due to acute viral bronchitis Ejection fraction of 30% During his hospitalization the patient desaturated down to the 80s and refused to wear her oxygen. His dose of Lasix was increased from 40 mg IV twice a day up to 60 mg IV twice a day. Also prednisone was not started. Today, his oxygen saturation is 92 on room air and feels much better. He is a stable to be discharged home. Time spent discussing smoking cessation with patient: 3 to 10 minutes - Time Spent with Patient Total time spent providing and/or coordinating discharge services: Greater than 30 minutes (40 minutes) - Constitutional Vitals: Temp Pulse Resp BP Pulse Ox 97.5 F L 107 20 120/67 92 L 11/23/16 07:28 11/23/16 07:28 11/23/16 07:28 11/23/16 07:11/23/16 07:57 General appearance: Present: cooperative, A&O X 3, pleasant, no acute distress, obese, answers questions appropriately - Head Head exam: Present: atraumatic, normocephalic - Eye Eye exam: Present: PERRL, conjuntiva pink, sclera anicteric Pupils: Present: PERRL - Neck Neck exam general surgery: Present: supple, trachea midline. Absent: lymphadenopathy - Respiratory Respiratory exam: Present: decreased breath sounds, CTAB. Absent: accessory muscle use, rales, rhonchi, wheezes - Cardiovascular Cardiovascular exam: Present: RRR, +S1, +S2. Absent: diastolic murmur, gallop, rubs, systolic murmur - GI/Abdominal GI/Abdominal exam: Present: normal bowel sounds, soft, no peritoneal signs. Absent: distended, tenderness - Extremities Exam Extremities exam: Present: pedal edema (+1 pitting edema in both lower extremities), warm, radial pulses palpable and symetrical. Absent: calf tenderness, cyanotic - Neurological Exam Neurological exam: Present: CN II-XII intact, oriented X3, no focal deficits. Absent: pronater drift, facial droop, speech deficit - Skin Skin exam: Present: dry, intact
[2016-11-23] MEDS: Nicotine 21 MG PATCH.TD24 TD SCH (09:46)
== END 2016-11-23 10:53 | disposition home or self-care (01) | DRG 291 ==
LOC: 2ANU 13:19 → EMEROO 13:19 → 2ANU 16:45
PROVIDERS: ADMIT Internal Medicine; ATTEND Internal Medicine

== ENCOUNTER 2017-03-04 09:20 | Inpatient (IN) ==
--- NOTE | 2017-03-04 09:25 | Emergency Department Note ---
Disposition Clinical Impression: Weakness, Hypokalemia, Elevated bilirubin, Elevated troponin Urinary tract infection Qualifiers: Urinary tract infection type: site unspecified Hematuria presence: without hematuria Qualified Code(s): N39.0 - Urinary tract infection, site not specified Disposition: Admitted As Inpatient Condition: Fair Referrals: German Olmedo DO [Primary Care Provider] - General Adult HPI - General Stated complaint: weakness/fall Time Seen by Provider: 03/04/17 09:24 Nursing Notes Reviewed: Yes Vital Signs Reviewed: Yes - History of Present Illness HPI Narrative: Mr. Ayala, a 66yo male, presents from home by EMS with chief complaint of falling. 4 days ago, patient fell while moving out of his home into an apartment. He was ascending a staircase. Described as bilateral lower extremity weakness. Denies trauma, dizziness, loss of consciousness at that time. 3 days ago, patient fell a second time while walking uphill. Again described as his legs giving out due to weakness. At that time, he impacted the temporal aspect of his right orbit on concrete. Denies loss of consciousness, changes in vision, chest pain or dyspnea. He presents today over concerns regarding continued leg weakness. Patient states this is chronic condition which began several months ago and has been sporadically intermittent. No prodromal symptoms. Patient is a poor historian and is unsure as to his past medical history or his daily medications. History lymphoma now in remission. Habits: Long-term alcohol use, currently rated a smoker. PCP: Dr. Cj Olmedo in residency clinic. - Related Data Home Medications Medication Instructions Recorded Confirmed Aspirin Enteric Coated [Aspirin EC] 81 mg PO DAILY 09/05/16 11/20/16 Garcinia Cambogia 1 each PO DAILY 09/05/16 11/20/16 Multivit-Min/FA/Lycopen/Lutein 1 each PO DAILY 09/05/16 11/20/16 [Centrum Silver Tablet] Lisinopril [Zestril] 5 mg PO DAILY 11/20/16 11/20/16 Previous Rx's Medication Instructions Recorded Atorvastatin [Lipitor] 40 mg PO HS 30 Days 09/07/16 Carvedilol [Coreg] 12.5 mg PO BIDWM 30 Days 09/07/16 Furosemide [Lasix] 40 mg PO BID 30 Days 11/23/16 Potassium Chloride 10 meq PO DAILY #30 tab.er.prt 11/23/16 Warfarin [Coumadin] 4 mg PO 1800 30 Days 11/23/16 predniSONE [PredniSONE] 10 mg PO DAILY 12 Days 11/23/16 Allergies Allergy/AdvReac Type Severity Reaction Status Date / Time No Known Allergies Allergy Verified 03/04/17 11:22 All systems ED: reviewed and negative except as stated. Constitutional: Reports: weakness. Denies: fever, chills Eyes: Denies: vision change Cardiovascular: Denies: chest pain, palpitations, dyspnea on exertion, edema Respiratory: Denies: cough, dyspnea, wheezes Gastrointestinal: Denies: abdominal pain, nausea, vomiting, diarrhea, constipation, hematemesis, melena, hematochezia Genitourinary: Denies: urgency, dysuria Musculoskeletal: Reports: back pain (Chronic with no acute changes). Denies: neck pain Integumentary: Reports: abrasion. Denies: rash Neurological: Reports: weakness, abnormal gait. Denies: headache, numbness, paresthesias, confusion, vertigo Past Medical History - Past Medical History Medical history: Reports: cancer, cardiomyopathy, CHF, coronary artery disease, hyperlipidemia, hypertension Surgical history: Reports: no surgical history Psychiatric history: Reports: no psych history - Social History Smoking Status: Current every day smoker Smokeless Tobacco Status: No Alcohol use: Reports: occasionally Drug use: Reports: none Physical Exam Vital signs reviewed and unremarkable. General: Patient is alert, oriented, and in no acute distress. HEENT: Head is normocephalic. Temporal aspects of right orbit has lacerations with mild ecchymosis and 0.5 cm closed nonbleeding laceration with subdural hematoma. Inferior temporal right conjunctival hemorrhage. PERRLA, EOMI. trachea midline. Cardiovascular: Heart regular rate and rhythm without clicks, rubs, gallops, or murmurs. No JVD. PMI nondisplaced. 1+ pitting pedal edema bilaterally. Evidence of venous stasis bilateral lower extremity. Bilateral radial and posterior tibial pulses equal bilaterally 2/4. Respiratory: Symmetric chest rise with good respiratory effort. Bilateral breath sounds are clear without wheezing, crackles, or rhonchi. Abdomen: Obese. Bowel sounds present normoactive x-4 quadrants. Abdomen is soft, nondistended, and nontender. Musculoskeletal: Muscle strength 5/5 and symmetric bilaterally in upper and lower extremities. DTRs 2/4 and symmetric bilaterally in upper and lower extremities. Neuro: Cranial nerves II through XII without deficit. Sensation light touch intact. Psych: Patient's affect is appropriate for situation. Course Course Narrative: Chart check shows history of A. fib and a flutter, CHF, hypertension. Meds include anticoagulation on Coumadin and daily aspirin as well as Lasix, Lipitor , Coreg. Workup is concerning for elevated troponin 0.04 with EKG relatively unremarkable however no previous EKG for comparison. Potassium is low at 2.9; will replenish. Urinalysis is concerning with for UTI the patient has no urinary symptoms; suspect component of prostatitis. Patient also has elevated bilirubin with no history of hepatitis but does admit to chronic alcohol intake. The patient regarding multiple findings in multiple concerns and multiple organ systems. His goal is to be able lift his everyday life. He was to be able to walk in the hospital in better health. He agrees to admission for continued workup and evaluation. Vital Signs Temperature 98.1 F 03/04/17 09:21 Pulse Rate 136 03/04/17 09:21 Respiratory Rate 18 03/04/17 09:21 Blood Pressure 130/72 03/04/17 09:21 O2 Sat by Pulse Oximetry 100 03/04/17 09:21 Temperature 98.1 F 03/04/17 09:21 Pulse Rate 109 03/04/17 10:45 Respiratory Rate 18 03/04/17 10:45 Blood Pressure 128/93 03/04/17 10:45 O2 Sat by Pulse Oximetry 99 03/04/17 10:45 Oxygen Delivery Oxygen Delivery Room Air Medical Decision Making - [facility] Narrative Medical decision making narrative: I examined this patient and my medical decision-making was reviewed with the UNDERGROUND HEAVY EQUIPMENT OPERATOR/PA/Advanced Practice Nurse/Resident Physician. I agree with the documented findings, disposition and treatment plan as described except to the extent set forth below. Patient presents by EMS from nursing facility. He said a history of falls going on since . He said he fell yesterday and struck his right eye no loss consciousness he says legs just feel weak he is uncertain why. He was seen by Dr. Borja and myself upon arrival. I agree with his evaluation and management plan and I supervised her care of the patient outstay. He has no neuro deficits on exam his up and amateur he does have bruising around his right eye. Reexplore that for laceration discuss tetanus status. Check lab work and reassessed to determine possible cause of his weakness and falls. He denies any focal weakness at time and has no stroke symptoms. 0940 hrs.: Patient is on Coumadin with an image his head and facial bones. Head CT 03/04/17 09:32 IMPRESSION: No acute intracranial abnormality. Mild right periorbital swelling. Moderate cerebral atrophy advanced for age. Moderate to large amount of chronic ischemic white matter change appropriate for age. These changes have progressed since the prior study. D/ / Byron Anderson MD / Byron Anderson MD Interpreting Provider: Byron Anderson MD Orbit CT 03/04/17 09:32 IMPRESSION: No acute abnormality of the orbits. No evident fracture. D/ / Byron Anderson MD / Byron Anderson MD Interpreting Provider: Byron Anderson MD 1045: Labs are back. He has hypokalemia which may be part of his weakness. He has elevated bilirubin but no abdominal pain bilirubin in the urine also. And signs of UTI. We will treat UTI replenish his potassium further workup and hospital. He is in agreement with this plan. CT is reviewed and shows no acute abnormality. Update his tetanus. No wound repair to be done on his face is just a contusion. He is in agreement with this plan. Impression is by lower extremity weakness, hypokalemia, fall, right orbital hematoma, elevated bilirubin. With history of alcoholism. Patient EKG at 0930 hrs.: Shows this atrial flutter with a history of same rate is 117 QRS is 103 QTc is 397 signs of acute ischemia or ectopy. He does not trying to pull an old EKG for comparison. 1056 hrs.: Spoke with hospitalist. They are agreeing to the admission. Patient 's critical care time excluding any separately billable procedures is 30 minutes. - Medical Records Medical records reviewed: Yes I reviewed the patient's medical records. - Lab Data Lab results reviewed: Yes I reviewed the patient's lab results. Result diagrams: 03/04/17 09:38 03/04/17 09:38 Lab Results 03/04/17 03/04/17 03/04/17 Range/Units 09:38 09:38 09:38 WBC 8.2 (4.3-11.1) K/mcL RBC 3.44 L (4.19-5.50) M/mcL Hgb 11.3 L (12.9-16.9) g/dL Hct 34.4 L (37.5-50.1) % MCV 100.0 (83.0-100.0) fL MCH 32.8 (28.0-33.3) pg MCHC 32.8 (31.6-35.5) g/dL RDW 23.9 H (11.5-14.5) % Plt Count 238 (140-400) K/mcL MPV 9.5 (9.4-12.4) fL Immature Gran % 0.5 (0-4) % Seg Neutrophils % 67.0 % Lymphocytes % 12.6 % Monocytes % 17.9 % Eosinophils % 1.3 % Basophils % 0.7 % Neutrophils # 5.5 (1.6-8.9) K/mcL Lymphocytes # 1.0 (0.6-4.6) K/mcL Monocytes # 1.5 H (0.0-1.3) K/mcL Eosinophils # 0.1 (0.0-0.6) K/mcL Basophils # 0.1 (0.0-0.2) K/mcL PT (9.4-12.1) Seconds INR APTT (26.0-36.0) Seconds Sodium 135 L (136-145) mEq/L Potassium 2.9 L (3.5-4.5) mEq/L Chloride 95 L (98-109) mEq/L Carbon Dioxide 30 H (19-29) mEq/L BUN 6 L (8-26) mg/dL Creatinine 0.68 L (0.72-1.25) mg/dL Est GFR ( Amer) > 60 (> 60) Est GFR (Non-Af Amer) > 60 (> 60) BUN/Creatinine Ratio 9 (6-26) Glucose 107 H (70-99) mg/dL Calculated Osmolality 278 L (280-300) Calcium 8.0 L (8.6-10.8) mg/dL Total Bilirubin 2.9 H (0.2-1.2) mg/dL AST 27 (5-34) Units/L ALT 16 (0-55) Units/L Alkaline Phosphatase 189 H (38-126) Units/L Troponin I 0.04 H* (0-0.03) ng/mL Serum Total Protein 6.4 (6.0-8.3) g/dL Albumin 2.3 L (3.5-5.0) g/dL Globulin 4.1 H (2.4-3.5) g/dL Albumin/Globulin Ratio 0.6 L (1.1-2.2) Urine Color (Yellow) Urine Clarity (Clear) Urine pH (5.0-8.0) pH Units Ur Specific [place] (1.010-1.025) Urine Protein (Neg-Trace) mg/dL Urine Glucose (UA) (Normal) mg/dL Urine Ketones (Negative) mg/dL Urine Blood (Negative) Urine Nitrite (Negative) Urine Bilirubin (Negative) Urine Urobilinogen (Normal) mg/dL Ur Leukocyte Esterase (Negative) Urine Microscopic RBC (0-3) per hpf Urine Microscopic WBC (0-3) per hpf Ur Squamous Epith Cells (None-Few) per lpf Urine Bacteria (None-Few) per hpf Hyaline Casts (None-Few) per lpf Ur Culture Indicated? (NO) Ethyl Alcohol < 10 (0-10) mg/dL 03/04/17 03/04/17 Range/Units 09:38 09:52 WBC (4.3-11.1) K/mcL RBC (4.19-5.50) M/mcL Hgb (12.9-16.9) g/dL Hct (37.5-50.1) % MCV (83.0-100.0) fL MCH (28.0-33.3) pg MCHC (31.6-35.5) g/dL RDW (11.5-14.5) % Plt Count (140-400) K/mcL MPV (9.4-12.4) fL Immature Gran % (0-4) % Seg Neutrophils % % Lymphocytes % % Monocytes % % Eosinophils % % Basophils % % Neutrophils # (1.6-8.9) K/mcL Lymphocytes # (0.6-4.6) K/mcL Monocytes # (0.0-1.3) K/mcL Eosinophils # (0.0-0.6) K/mcL Basophils # (0.0-0.2) K/mcL PT 15.5 H (9.4-12.1) Seconds INR 1.4 APTT 31.6 (26.0-36.0) Seconds Sodium (136-145) mEq/L Potassium (3.5-4.5) mEq/L Chloride (98-109) mEq/L Carbon Dioxide (19-29) mEq/L BUN (8-26) mg/dL Creatinine (0.72-1.25) mg/dL Est GFR ( Amer) (> 60) Est GFR (Non-Af Amer) (> 60) BUN/Creatinine Ratio (6-26) Glucose (70-99) mg/dL Calculated Osmolality (280-300) Calcium (8.6-10.8) mg/dL Total Bilirubin (0.2-1.2) mg/dL AST (5-34) Units/L ALT (0-55) Units/L Alkaline Phosphatase (38-126) Units/L Troponin I (0-0.03) ng/mL Serum Total Protein (6.0-8.3) g/dL Albumin (3.5-5.0) g/dL Globulin (2.4-3.5) g/dL Albumin/Globulin Ratio (1.1-2.2) Urine Color Dark Yellow (Yellow) Urine Clarity Clear (Clear) Urine pH 6.0 (5.0-8.0) pH Units Ur Specific [place] 1.028 H (1.010-1.025) Urine Protein 30 H (Neg-Trace) mg/dL Urine Glucose (UA) Normal (Normal) mg/dL Urine Ketones Trace H (Negative) mg/dL Urine Blood Negative (Negative) Urine Nitrite Positive A (Negative) Urine Bilirubin Moderate H (Negative) Urine Urobilinogen >=8.0 H (Normal) mg/dL Ur Leukocyte Esterase Small H (Negative) Urine Microscopic RBC 0-3 (0-3) per hpf Urine Microscopic WBC 0-3 (0-3) per hpf Ur Squamous Epith Cells Moderate H (None-Few) per lpf Urine Bacteria Moderate H (None-Few) per hpf Hyaline Casts None Seen (None-Few) per lpf Ur Culture Indicated? YES A (NO) Ethyl Alcohol (0-10) mg/dL - Radiology Data Radiology results reviewed: Yes I reviewed the patient's radiology results. Head CT 03/04/17 09:32 IMPRESSION: No acute intracranial abnormality. Mild right periorbital swelling. Moderate cerebral atrophy advanced for age. Moderate to large amount of chronic ischemic white matter change appropriate for age. These changes have progressed since the prior study. D/ / Byron Anderson MD / Byron Anderson MD Interpreting Provider: Byron Anderson MD Orbit CT 03/04/17 09:32
[2017-03-04 09:43] LABS: Basophils # 0.1 K/mcL (0.0-0.2); Basophils % 0.7 %; Eosinophils # 0.1 K/mcL (0.0-0.6); Eosinophils % 1.3 %; Hematocrit 34.4 % (37.5-50.1); Hemoglobin 11.3 g/dL (12.9-16.9); Immature Granulocytes % 0.5 % (0-4); Lymphocytes % 12.6 %; Mean Corpuscular HGB Conc 32.8 g/dL (31.6-35.5); Mean Corpuscular Hemoglobin 32.8 pg (28.0-33.3); Mean Platelet Volume 9.5 fL (9.4-12.4); Monocytes # 1.5 K/mcL (0.0-1.3); Monocytes % 17.9 %; Neutrophils # 5.5 K/mcL (1.6-8.9); Platelet Count 238 K/mcL (140-400); Red Blood Count 3.44 M/mcL (4.19-5.50); Red Cell Distribution Width 23.9 % (11.5-14.5)
[2017-03-04 09:58] LABS: Alanine Aminotransferase 16 Units/L (0-55); Albumin 2.3 g/dL (3.5-5.0); Albumin/Globulin Ratio 0.6 (1.1-2.2); Alkaline Phosphatase 189 Units/L (38-126); Aspartate Amino Transferase 27 Units/L (5-34); BUN/Creatinine Ratio 9 (6-26); Blood Urea Nitrogen 6 mg/dL (8-26); Carbon Dioxide 30 mEq/L (19-29); Chloride 95 mEq/L (98-109); Globulin 4.1 g/dL (2.4-3.5); Glucose 107 mg/dL (70-99); Osmolality,Calculated 278 (280-300); Potassium 2.9 mEq/L (3.5-4.5); Sodium 135 mEq/L (136-145); Total Protein 6.4 g/dL (6.0-8.3); eGFR For African Americans > 60 (> 60); eGFR For Non-African Americans > 60 (> 60)
[2017-03-04 09:59] LABS: Bilirubin,Urine Moderate (Negative); Blood,Urine Negative (Negative); Glucose,Urine (UA) Normal (Normal); Ketones,Urine Trace mg/dL (Negative); Leukocyte Esterase,Urine Small (Negative); Nitrite,Urine Positive (Negative); Protein,Urine 30 mg/dL (Neg-Trace); Specific Gravity,Urine 1.028 (1.010-1.025); Urobilinogen,Urine >=8.0 mg/dL (Normal)
[2017-03-04 10:02] LABS: Hyaline Casts,Urine None Seen per lpf (None-Few); RBC,Urine 0-3 per hpf (0-3); Squamous Epithelial Cell,Urine Moderate per lpf (None-Few); WBC,Urine 0-3 per hpf (0-3)
[2017-03-04 10:02] LABS: Bilirubin,Total 2.9 mg/dL (0.2-1.2); Ethanol < 10 mg/dL (0-10)
[2017-03-04 10:06] LABS: Clarity,Urine Clear (Clear); Color,Urine Dark Yellow (Yellow)
[2017-03-04 10:07] LABS: Bacteria,Urine Moderate per hpf (None-Few)
[2017-03-04] MEDS ORDERED: Aspirin 325 MG TABLET PO ONE (10:27)
[2017-03-04] MEDS ORDERED: Td (TENIVAC) Vaccine 0.5 ML VIAL IM ONE (10:47)
[2017-03-04 10:52] LABS: INR 1.4; Prothrombin Time 15.5 Seconds (9.4-12.1)
[2017-03-04 10:55] LABS: Activated Partial Thrombo Time 31.6 Seconds (26.0-36.0)
--- NOTE | 2017-03-04 11:23 | Internal Med History&Physical ---
Date of Encounter: 03/04/17 Time of Encounter: 11:00 Assessment and Plan (1) CHF (congestive heart failure) Current visit: Yes Status: Acute Patient with acute on chronic congestive heart failure. Mild troponin elevation. This is chronic for the patient. Admit inpatient. IV Lasix. Monitor urine output. Fluid restriction. Daily weights. Echocardiogram as it has been 6 months since his last one. Qualifiers: Congestive heart failure type: combined Congestive heart failure chronicity : acute on chronic Qualified Code(s): I50.43 - Acute on chronic combined systolic (congestive) and diastolic (congestive) heart failure (2) Recurrent falls Current visit: Yes Status: Acute Consult physical therapy. Likely related to hyponatremia and hypokalemia. (3) Atrial fibrillation Current visit: No Status: Chronic Currently rate controlled. Continue home medications for this condition. Subtherapeutic INR while on Coumadin. Will resume pharmacy dosing. Given his periorbital ecchymosis and anemia, we will hold off on Lovenox bridging for now. Qualifiers: Atrial fibrillation type: chronic Qualified Code(s): I48.2 - Chronic atrial fibrillation (4) Weakness Current visit: Yes Status: Acute (5) Hypokalemia Current visit: Yes Status: Acute Repleted in the ED. Will follow potassium levels and replace accordingly. Due to Lasix use. (6) Urinary tract infection Current visit: Yes Status: Acute Patient appears to be having acute urinary tract infection. Was given Cipro in the ER. We will continue this while we get culture results. Qualifiers: Urinary tract infection type: site unspecified Hematuria presence: without hematuria Qualified Code(s): N39.0 - Urinary tract infection, site not specified (7) Pleural effusion Current visit: Yes Status: Chronic Right-sided pleural effusion. This is persistent since November. Given the patient's shortness of breath, we will consult IR for thoracentesis. We will follow pleural fluid analysis. Most likely this is transudative effusion related to congestive heart failure. However this could be contributing to the patient's symptoms of dyspnea on exertion. Not had thoracentesis done before (8) Hypertension Current visit: Yes Status: Chronic Continue to monitor blood pressure. Continue home medications. Qualifiers: Hypertension type: essential hypertension Qualified Code(s): I10 - Essential (primary) hypertension Internal Medicine - H&P: HPI Chief complaint: Generalized weakness Admitted From: Emergency Dept Plans for Post Hospital Care: Home History of present illness: Mr. Ayala is a 66 year old male patient with a history of congestive heart failure, atrial fibrillation on anticoagulation with Coumadin presented to the ER with complaints of generalized weakness that has been going on for about 2 weeks now. He had a mechanical fall 4 days ago when he sees his legs just gave way. This happened while he was in the process of moving from his home. He denies any palpitations lightheadedness prior to that episode. He had another fall 3 days back and hit his head on concrete on the temporal aspect of his right orbit. Since then he has been having some redness and ecchymosis around his orbit. Patient denies any fever chills or night sweats. However he does get short of breath when he ambulates a distance of lesser than 1 block. He does take furosemide and is on 60 mg in the morning and 40 mg at bedtime. He denies any chest pain or palpitations. He has chronic cough and is a chronic smoker. No sputum production. Past Med Surg Social Fam HX - Past Medical History Attestation: Yes The following information was validated with the patient. Source: patient, old records reviewed Medical history: cancer, cardiomyopathy, CHF, coronary artery disease, hyperlipidemia, hypertension Psychiatric history: no psych history - Past Surgical History Surgical History: no surgical history - Social History Smoking Status: Current every day smoker Smokeless Tobacco Status: No Alcohol use: occasionally Drug use: none - Family History Mother Adopted: Yes Living Status: Still Living Internal Medicine - H&P: Meds Aspirin Enteric Coated [Aspirin EC] 81 mg PO DAILY 09/05/16 [History] Garcinia Cambogia 1 each PO DAILY 09/05/16 [History] Multivit-Min/FA/Lycopen/Lutein [Centrum Silver Tablet] 1 each PO DAILY 09/05/16 [History] Atorvastatin [Lipitor] 40 mg PO HS 30 Days 09/07/16 [Rx] Carvedilol [Coreg] 12.5 mg PO BIDWM 30 Days 09/07/16 [Rx] Lisinopril [Zestril] 5 mg PO DAILY 11/20/16 [History] Furosemide [Lasix] 40 mg PO BID 30 Days 11/23/16 [Rx] Potassium Chloride 10 meq PO DAILY #30 tab.er.prt 11/23/16 [Rx] Warfarin [Coumadin] 4 mg PO 1800 30 Days 11/23/16 [Rx] predniSONE [PredniSONE] 10 mg PO DAILY 12 Days 11/23/16 [Rx] Allergies No Known Allergies Allergy (Verified 09/05/16 13:29) All Systems PM: A 10-system review of systems was performed and is negative for pertinent findings except as documented above in the HPI. - Constitutional Constitutional: fatigue, weakness, no chills, no fever(s), no night sweats - EENT Eyes: no change in vision, no discharge, no pain, no photophobia Ears: no ear discharge, no ear pain, no tinnitus Nose, mouth and throat: no dysphagia, no nasal discharge, no neck pain, no sore throat - Cardiovascular Cardiovascular ROS IM: dyspnea on exertion, no chest pain, no diaphoresis, no dyspnea, no lightheadedness, no palpitations, no syncope - Respiratory Respiratory: cough, no dyspnea, no wheezing, no excessive phlegm production - Gastrointestinal Gastrointestinal: no abdominal pain, no diarrhea, no hematemesis, no hematochezia, no melena, no nausea, no vomiting - Musculoskeletal Musculoskeletal ROS IM: no numbness, no tingling - Integumentary Integumentary IM: no rash, no unusual bruising - Neurological Neurological ROS: no confusion, no convulsions, no focal weakness, no numbness, no tingling, no tremor(s) - Hematologic/Lymphatic Hematologic/Lymphatic: no easy bruising - Constitutional Vitals: Temp Pulse Resp BP Pulse Ox 98.1 F 109 18 128/93 99 03/04/17 09:21 03/04/17 10:45 03/04/17 10:45 03/04/17 10:45 03/04/17 10:45 General appearance: Present: cooperative, mild distress, A&O X 3, answers questions appropriately - Head Head exam: Present: normocephalic Additional comments: Ecchymosis noted on the right periorbital region with subconjunctival hemorrhage - Eye Eye exam: Present: EOMI, periorbital swelling (right), PERRL - Neck Neck exam general surgery: Present: supple, trachea midline. Absent: lymphadenopathy - Respiratory Respiratory exam: Present: prolonged expiratory phase, wheezes. Absent: accessory muscle use, rales, rhonchi Additional comments: Decreased breath sounds in the right lower lobe - Cardiovascular Cardiovascular exam: Present: irregular rhythm, +S1, +S2. Absent: diastolic murmur, gallop, rubs, systolic murmur Additional comments: Basal crackles bilaterally - GI/Abdominal GI/Abdominal exam: Present: normal bowel sounds, soft, no peritoneal signs. Absent: distended, tenderness - Extremities Exam Extremities exam: Present: warm, radial pulses palpable and symetrical. Absent : calf tenderness, cyanotic, pedal edema - Neurological Exam Neurological exam: Present: alert, oriented X3, no focal deficits. Absent: facial droop, speech deficit - Skin Skin exam: Present: dry, intact Internal Med - H&P Results - Labs CBC & Chem 7: 03/04/17 09:38 03/04/17 09:38 Labs: Short CBC 03/04/17 Range/Units 09:38 WBC 8.2 (4.3-11.1) K/mcL Hgb 11.3 L (12.9-16.9) g/dL Hct 34.4 L (37.5-50.1) % Plt Count 238 (140-400) K/mcL Neutrophils # 5.5 (1.6-8.9) K/mcL BMP 03/04/17 09:38 Sodium 135 L Potassium 2.9 L Chloride 95 L Carbon Dioxide 30 H BUN 6 L Creatinine 0.68 L Glucose 107 H Calcium 8.0 L Cardiac Enzymes 03/04/17 Range/Units 09:38 Troponin I 0.04 H* (0-0.03) ng/mL Liver Function 03/04/17 Range/Units 09:38 Total Bilirubin 2.9 H (0.2-1.2) mg/dL AST 27 (5-34) Units/L ALT 16 (0-55) Units/L Alkaline Phosphatase 189 H (38-126) Units/L Albumin 2.3 L (3.5-5.0) g/dL Urine 03/04/17 Range/Units 09:52 Urine Color Dark Yellow (Yellow) Urine Clarity Clear (Clear) Urine pH 6.0 (5.0-8.0) pH Units Ur Specific [place] 1.028 H (1.010-1.025) Urine Protein 30 H (Neg-Trace) mg/dL Urine Glucose (UA) Normal (Normal) mg/dL - EKG Data EKG comments: 03/04/17 11:27 A. fib without any acute ST segment changes. Patient has lateral T-wave inversions which were present on his previous EKG in November. - Impressions ITS Impressions Head CT 03/04/17 09:32 IMPRESSION: No acute intracranial abnormality. Mild right periorbital swelling. Moderate cerebral atrophy advanced for age. Moderate to large amount of chronic ischemic white matter change appropriate for age. These changes have progressed since the prior study. D/ / Byron Anderson MD / Byron Anderson MD Interpreting Provider: Byron Anderson MD Orbit CT 03/04/17 09:32 IMPRESSION: No acute abnormality of the orbits. No evident fracture. D/ / Byron Anderson MD / Byron Anderson MD Interpreting Provider: Byron Anderson MD Chest X-Ray 03/04/17 10:55 IMPRESSION: Cardiomegaly with pulmonary edema compatible with CHF. Moderate size right pleural effusion with right basilar atelectasis/infiltrate. D/ / Bladimir Ohara MD / Bladimir Ohara MD Interpreting Provider: Bladimir Ohara MD - Attending Attestation This document has been at least partially created by [employer] recognition technology by Dr. Sandoval. Errors in grammar, wording or other phrases may exist. If errors are found after the documentation is signed, they will be addressed individually in the addendum section of this document when appropriate.
[2017-03-04] MEDS ORDERED: Acetaminophen 325 MG TABLET PO PRN (11:35)
[2017-03-04] MEDS ORDERED: Naloxone 0.4 MG/ML INJ IVP PRN (11:35)
[2017-03-04] MEDS: Furosemide 40 MG/4 ML VIAL IVP SCH ×2 (13:43→17:20)
--- NOTE | 2017-03-04 14:53 | IR Procedure Note ---
Date of procedure: 03/04/17 Consent Obtained: Written consent Timeout: Correct patient and procedure verified, Correct site verified, Time out performed, Skin prep completed Local anesthetic: Lidocaine 1% Indications: Right pleural effusion Procedure Performed: Right thoracentesis Site/Technique: Right chest Results/Findings: 8fr cath placed with trocar technique Estimated blood loss (cc): 1 Complications: None; Tolerated procedure well Post Procedure Treatment Plan: Monitoring in pts room
[2017-03-04 15:41] LABS: Potassium 3.1 mEq/L (3.5-4.5)
[2017-03-04 17:05] LABS: RBC,Pleural Fluid 0.005 M/mcL
[2017-03-04 17:19] LABS: Amylase,Pleural Fluid 21 Units/L (No Ref Range); Glucose,Pleural Fluid 100 mg/dL (No Ref Range); LDH,Pleural Fluid 109 Units/L (No Ref Range)
[2017-03-04 17:21] LABS: Total Protein,Pleural Fluid 1.6 g/dL (No Ref Range)
[2017-03-04] MEDS ORDERED: *HR* Warfarin 5 MG TABLET PO ONE (18:00)
[2017-03-04] MEDS ORDERED: Warfarin perPT PO PRN (18:00)
[2017-03-04 18:42] LABS: Appearance of Pleural Fl Hazy (Clear)
[2017-03-04] MEDS ORDERED: *HR* Metoprolol 5 MG/5 ML VIAL IVP ONE (19:07)
[2017-03-04] MEDS ORDERED: *HR* OxyCODONE Immed Rel 5 MG TABLET PO PRN (20:40)
--- NOTE | 2017-03-05 00:49 | Event Note ---
Date of Encounter: 03/05/17 Time of Encounter: 00:47 Called by RN for hypoxemia and shortness of breath earlier. Symptoms resolved, but I ordered STAT CXR based upon thoracentesis done earlier by IR. Patient now has a small pneumothorax. I went to assess patient. He is sleeping and breathing comfortably on 3 L O2 NC. He awakens easily and reports no difficulty breathing now. I will order another follow up CXR for this morning.
[2017-03-05 04:48] LABS: Hematocrit 32.8 % (37.5-50.1); Hemoglobin 10.9 g/dL (12.9-16.9); Mean Corpuscular HGB Conc 33.2 g/dL (31.6-35.5); Mean Corpuscular Hemoglobin 33.3 pg (28.0-33.3); Mean Corpuscular Volume 100.3 fL (83.0-100.0); Mean Platelet Volume 9.5 fL (9.4-12.4); Platelet Count 226 K/mcL (140-400); Red Blood Count 3.27 M/mcL (4.19-5.50); Red Cell Distribution Width 23.8 % (11.5-14.5)
[2017-03-05 04:55] LABS: INR 1.5; Prothrombin Time 16.4 Seconds (9.4-12.1)
[2017-03-05 05:06] LABS: BUN/Creatinine Ratio 12 (6-26); Blood Urea Nitrogen 9 mg/dL (8-26); Carbon Dioxide 32 mEq/L (19-29); Chloride 96 mEq/L (98-109); Glucose 106 mg/dL (70-99); Osmolality,Calculated 279 (280-300); Potassium 3.5 mEq/L (3.5-4.5); Sodium 135 mEq/L (136-145); eGFR For African Americans > 60 (> 60); eGFR For Non-African Americans > 60 (> 60)
[2017-03-05] MEDS: Furosemide 40 MG/4 ML VIAL IVP SCH ×2 (09:14→16:10)
[2017-03-05] MEDS: Aspirin Enteric Coated 81 MG Tablet PO SCH (09:14)
--- NOTE | 2017-03-05 09:59 | ECHO - Doppler Report ---
Echocardiogram Name: Goran Ayala Date of Study: 03/05/2017 Date: 1950 Ht: 75.0 in Medical Record#: [id number] Age: 66 Wt: 242.0 lb Gender: Male BSA: 2.38 Order #: [id number] Location: [facility] Room #: 3B31 Reading Physician: Kellen Davis DO Clin Asst: Michelle Ireland RDCS Ordering Physician: Erin Sandoval MD Primary Physician: German Olmedo DO Indications: Congestive heart failure Impressions: Technically challenging study with suboptimal windows. Patient was in AFIB with RVR during study. Difficult to quantify LVEF. Recommend repeat study with Definity when heart rates normalize. Normal RV size. Function not well evaluated. Mild mitral regurgitation. Mild tricuspid regurgitation. No pulmonary hypertension by TR gradient, 23 mmHg. Left Ventricular Wall Motion: Rest Echo Findings The mid anterior septal, mid inferior lateral, basal anterior septal and basal inferior lateral sandoval were hypokinetic. The apex, apical inferior, mid inferior, basal inferior, apical anterior, mid anterior, basal anterior, apical septal, mid inferior septal and basal inferior septal sandoval were not visualized. All other wall segments showed normal motion. Findings: Study Quality * Technically sub-optimal due to clinical status. ECG Findings * Atrial fibrillation with RVR, HR 110's. Left Atrium * Moderately dilated left atrium. Aortic Valve * Trace aortic regurgitation. * Trileaflet aortic valve. * Normal aortic valve structure. * No aortic stenosis. Mitral Valve * Mild mitral regurgitation. * Normal mitral valve structure. * No mitral stenosis. Tricuspid Valve * Tricuspid valve not well visualized. * Mild tricuspid regurgitation. Pulmonic Valve * Pulmonic valve is not well visualized. * No pulmonic stenosis. * No pulmonic regurgitation. Pulmonary Artery * Pulmonary artery not well visualized. Left Ventricle * Indeterminate diastolic function. * Difficult to determine LV systolic function. * LV size and wall thickness appear normal. Right Atrium * Normal right atrial size. Right Ventricle * Normal RV size. Function not well evaluated. Interatrial Septum * Interatrial septum not well evaluated. Pericardium * There is no pericardial effusion present. IVC * The IVC is not well evaluated. Aorta * Suboptimally visualized. History Hypertension Hypercholesteremia History of CAD/PTCA Congestive Heart Failure 09/06/2016 a Previous Echo was performed. Measurements: BP: 135/ 78 2D Normal Values RVIDd: 3.84 cm <2.7 cm IVSd: .99 cm 0.6 - 1.0 cm LVIDd: 5.19 cm 3.7 - 5.6 cm LVPWd: 1.00 cm 0.6 - 1.1 cm LVIDs: 3.49 cm 1.5 - 3.6 cm AO: 3.20 cm < 4.0 cm LA: 5.10 cm 2.0 - 4.0cm %FS: 32.80 cm >25 % LA volume: 94 Mitral Valve Peak E:.99 m/sec Peak E' Lat Ishmael:10.7 cm/s Peak E' Med Ishmael:7.72 cm/s E/E' Lat Ratio:9.3 E/E' Med Ratio:12.8 Tricuspid Valve TV Regurg Peak Grad: 23.00mmHg TV Regurg Peak Ishmael: 2.41m/sec Updated by Kellen Davis on 03/05/2017 9:54:08 AM electronically signed on 03/05/2017 9:55:05 AM with status of Final Wall Motion Flanagan: 1=Normal, 2=Hypokinesis, 3=Akinesis, 4=Dyskinesis, 5=Aneurysmal, 6=Hyperkinetic, X=Not Visualized (Blank)=Missing
[2017-03-05] MEDS ORDERED: *HR* Metoprolol 5 MG/5 ML VIAL IVP ONE (10:24)
--- NOTE | 2017-03-05 10:28 | Internal Med Progress Note ---
Date of Encounter: 03/05/17 Time of Encounter: 10:00 - Assessment and plan (1) Recurrent falls Current Visit: Yes Status: Acute Assessment and plan: Awaiting OT and PT recommendations. Head CT negative for acute processes. Orbital CT negative for acute processes. Head CT 03/04/17 09:32 IMPRESSION: No acute intracranial abnormality. Mild right periorbital swelling. Moderate cerebral atrophy advanced for age. Moderate to large amount of chronic ischemic white matter change appropriate for age. These changes have progressed since the prior study. D/ / Byron Anderson MD / Byron Anderson MD Interpreting Provider: Byron Anderson MD Orbit CT 03/04/17 09:32 IMPRESSION: No acute abnormality of the orbits. No evident fracture. D/ / Byron Anderson MD / Byron Anderson MD Interpreting Provider: Byron Anderson MD (2) Weakness Current Visit: Yes Status: Acute Assessment and plan: OT and PT have been brought on board. Services on board as well. (3) CHF exacerbation Current Visit: No Status: Acute Assessment and plan: Continue diuresing with IV furosemide. Patient stating swelling has gone down in his legs-currently 1+ pitting edema bilaterally. Patient denies shortness of breath above his norm at this time. Renal functioning has remained stable. He is status post thoracentesis with 600 mL's out. This appears to have recurred however after the procedure patient had a right-sided pneumothorax that has improved. Pleural fluid unremarkable. We will continue with serial chest x-rays and will monitor. Of note, echocardiogram was unable to be interpreted and was unable to quantify and ejection fraction. We will consider repeating as indicated. Patient is currently tolerating room air. Does not use oxygen at home. ITS Impressions Chest X-Ray 03/04/17 10:55 IMPRESSION: Cardiomegaly with pulmonary edema compatible with CHF. Moderate size right pleural effusion with right basilar atelectasis/infiltrate. D/ / Bladimir Ohara MD / Bladimir Ohara MD Interpreting Provider: Bladimir Ohara MD Thoracentesis Ultrasound 03/04/17 11:34 IMPRESSION: Successful ultrasound guided thoracentesis. D/ / Rolando Freeman MD / Rolando Freeman MD Interpreting Provider: Rolando Freeman MD Chest X-Ray 03/04/17 14:51 IMPRESSION: 1. Decrease in size of right pleural effusion status post right thoracentesis. No pneumothorax. 2. Right basilar atelectasis. 3. Cardiomegaly and pulmonary edema. D/ / Bladimir Ohara MD / Bladimir Ohara MD Interpreting Provider: Bladimir Ohara MD Chest X-Ray 03/04/17 23:42 IMPRESSION: Interval development of a small right pneumothorax following a thoracentesis. Recommend short-term follow-up chest radiograph in 1-2 hours to ensure stability. Critical results were called by Dr. Law Liz MD to Jose Ponce RN, on 03/05/2017 at 00:11. D/ / Law Liz MD / Law Liz MD Interpreting Provider: Law Liz MD Chest X-Ray 03/05/17 08:00 IMPRESSION: Stable pulmonary vascular congestion compatible with mild CHF. Moderate-sized right pleural effusion which has slightly increased. Trace right pneumothorax which is improved D/ / 03/05/2017 08:59:26 Edwar Galaviz MD / vicente Interpreting Provider: Edwar Galaviz MD Echocardiogram impressions: Technically challenging study was suboptimal windows. Patient was in A. fib with RVR during the study. Difficult to quantify LV EF. Recommend repeat study with Definity when heart rate normalizes. Normal RV size. Function not well evaluated. Mild MR. Mild TR. No pulmonary hypertension by TR gradient, 23 mmHg. Qualifiers: Congestive heart failure type: combined Qualified Code(s): I50.43 - Acute on chronic combined systolic (congestive) and diastolic (congestive) heart failure (4) Pleural effusion Current Visit: Yes Status: Chronic (5) Atrial fibrillation with rapid ventricular response Current Visit: No Status: Acute Assessment and plan: Anticoagulated with Coumadin however he is subtherapeutic so IPC's ordered. Rate uncontrolled, he received an dose of IV Lopressor last night and his heart rate improved however he is currently in the 110-120 range, IV Lopressor ordered and will increase his carvedilol nightly dosage. (6) Atrial fibrillation Current Visit: No Status: Chronic Qualifiers: Atrial fibrillation type: chronic Qualified Code(s): I48.2 - Chronic atrial fibrillation (7) Anemia Current Visit: No Status: Chronic Assessment and plan: Mild, stable, will trend. No signs of active bleeding. (8) Elevated troponin Current Visit: No Status: Chronic Assessment and plan: In review of his chart, patient has had borderline elevated troponins since August 2016. He denies shortness of breath or chest pain. (9) Hypertension Current Visit: Yes Status: Chronic Assessment and plan: Controlled. His home carvedilol and lisinopril have been continued. He is also receiving IV furosemide, will trend Qualifiers: Hypertension type: essential hypertension Qualified Code(s): I10 - Essential (primary) hypertension (10) DVT prophylaxis Current Visit: No Status: Acute Assessment and plan: He is on Coumadin however he is subtherapeutic with an INR 1.5 today. We will add IPC's. Anemia at the low end of his normal, we will trend and hold off on additional pharmacologic prophylaxis at this time. (11) Abdominal aortic aneurysm Current Visit: No Status: Chronic Qualifiers: Presence of rupture: without rupture Qualified Code(s): I71.4 - Abdominal aortic aneurysm, without rupture (12) PAD (peripheral artery disease) Current Visit: No Status: Chronic (13) Tobacco use disorder Current Visit: No Status: Chronic Assessment and plan: Declines counseling (14) Hypokalemia Current Visit: Yes Status: Resolved (15) Elevated bilirubin Current Visit: Yes Status: Acute Assessment and plan: Patient denies abdominal pain, will trend. (16) Urinary tract infection Current Visit: Yes Status: Ruled-out Assessment and plan: Urine culture negative, we will discontinue Cipro. Patient denies dysuria. Qualifiers: Urinary tract infection type: site unspecified Hematuria presence: without hematuria Qualified Code(s): N39.0 - Urinary tract infection, site not specified - Subjective Interval history: Patient seen and examined. On examination, patient resting in high Fung's with his eyes closed. Patient awakens easily to voice and denies pain or shortness of breath. He denies palpitations. - Constitutional Vitals: Temp Pulse Resp BP Pulse Ox 97.5 F L 84 16 116/77 92 03/05/17 06:37 03/05/17 06:37 03/05/17 06:37 03/05/17 10:20 03/05/17 02:44 General appearance: Present: cooperative, A&O X 3, pleasant, no acute distress, answers questions appropriately - Head Head exam: Present: atraumatic, normocephalic - Eye Eye exam: Present: PERRL, conjuntiva pink, sclera anicteric Pupils: Present: PERRL - Neck Neck exam general surgery: Present: supple, trachea midline. Absent: lymphadenopathy - Respiratory Respiratory exam: Present: CTAB. Absent: accessory muscle use, rales, respiratory distress, rhonchi, wheezes - Cardiovascular Cardiovascular exam: Present: +S1, +S2, tachycardia. Absent: diastolic murmur, gallop, rubs, systolic murmur - GI/Abdominal GI/Abdominal exam: Present: normal bowel sounds, soft, no peritoneal signs. Absent: distended, tenderness - Extremities Exam Extremities exam: Present: pedal edema (1+ bilaterally), warm, radial pulses palpable and symetrical. Absent: calf tenderness, cyanotic - Neurological Exam Neurological exam: Present: alert, CN II-XII intact, oriented X3, no focal deficits, strengths equal and symetr throughout. Absent: pronater drift, facial droop, speech deficit - Skin Skin exam: Present: dry, intact, pallor, warm Internal Medicine: Result - Labs CBC & Chem 7: 03/05/17 04:36 03/05/17 04:36 Labs: Short CBC 03/05/17 Range/Units 04:36 WBC 8.2 (4.3-11.1) K/mcL Hgb 10.9 L (12.9-16.9) g/dL Hct 32.8 L (37.5-50.1) % Plt Count 226 (140-400) K/mcL BMP 03/04/17 03/05/17 15:19 04:36 Sodium 135 L Potassium 3.1 L 3.5 Chloride 96 L Carbon Dioxide 32 H BUN 9 Creatinine 0.73 Glucose 106 H Calcium 8.0 L - ABG Interpretation ABG results: PT/INR, D-dimer PT 16.4 Seconds (9.4-12.1) H 03/05/17 04:36 - Impressions Impressions Chest X-Ray 03/04/17 14:51 IMPRESSION: 1. Decrease in size of right pleural effusion status post right thoracentesis. No pneumothorax. 2. Right basilar atelectasis. 3. Cardiomegaly and pulmonary edema. D/ / Bladimir Ohara MD / Bladimir Ohara MD Interpreting Provider: Bladimir Ohara MD Chest X-Ray 03/04/17 23:42 IMPRESSION: Interval development of a small right pneumothorax following a thoracentesis. Recommend short-term follow-up chest radiograph in 1-2 hours to ensure stability. Critical results were called by Dr. Law Liz MD to Jose Ponce RN, on 03/05/2017 at 00:11. D/ / Law Liz MD / Law Liz MD Interpreting Provider: Law Liz MD Chest X-Ray 03/05/17 08:00 IMPRESSION: Stable pulmonary vascular congestion compatible with mild CHF. Moderate-sized right pleural effusion which has slightly increased. Trace right pneumothorax which is improved. D/ / 03/05/2017 08:59:26 Edwar Galaviz MD / vicente Interpreting Provider: Edwar Galaviz MD Consult Discharge Plan - Plan
--- NOTE | 2017-03-05 15:01 | Electrocardiograph Report ---
[address] [address] Test Date: 2017-03-04 Pat Name: Goran Ayala Department: 113 Room: 3B Gender: M [employer]: CHRISTA : 1950 Requested By: Oneida Ramirez Order Number: [id number] Reading MD: Moses Diaz MD Measurements Intervals Balsam Rate: 119 P: CT: 0 QRS: 10 QRSD: 97 T: 189 QT: 327 QTc: 398 Interpretive Statements ATRIAL FLUTTER WITH RAPID VENTRICULAR RESPONSE Electronically Signed On 03-05-2017 14:59:54 EDT by Moses Diaz MD
[2017-03-05] MEDS ORDERED: *HR* Warfarin 5 MG TABLET PO ONE (18:00)
[2017-03-06 06:30] LABS: Basophils # 0.1 K/mcL (0.0-0.2); Basophils % 0.7 %; Eosinophils # 0.2 K/mcL (0.0-0.6); Eosinophils % 1.9 %; Hematocrit 30.8 % (37.5-50.1); Immature Granulocytes % 0.8 % (0-4); Lymphocytes # 0.9 K/mcL (0.6-4.6); Lymphocytes % 11.1 %; Mean Corpuscular HGB Conc 32.5 g/dL (31.6-35.5); Mean Corpuscular Hemoglobin 32.4 pg (28.0-33.3); Mean Corpuscular Volume 99.7 fL (83.0-100.0); Mean Platelet Volume 9.4 fL (9.4-12.4); Monocytes # 1.5 K/mcL (0.0-1.3); Monocytes % 17.5 %; Platelet Count 220 K/mcL (140-400); Red Blood Count 3.09 M/mcL (4.19-5.50); Red Cell Distribution Width 23.8 % (11.5-14.5)
[2017-03-06 06:32] LABS: INR 1.5; Prothrombin Time 16.8 Seconds (9.4-12.1)
[2017-03-06 06:34] LABS: Neutrophils # 5.8 K/mcL (1.6-8.9)
[2017-03-06 06:43] LABS: Alanine Aminotransferase 19 Units/L (0-55); Albumin 2.2 g/dL (3.5-5.0); Albumin/Globulin Ratio 0.6 (1.1-2.2); Alkaline Phosphatase 214 Units/L (38-126); Aspartate Amino Transferase 33 Units/L (5-34); BUN/Creatinine Ratio 18 (6-26); Bilirubin,Direct 2.5 mg/dL (0.0-0.5); Bilirubin,Indirect 0.5 mg/dL (0.0-1.2); Blood Urea Nitrogen 15 mg/dL (8-26); Calcium 8.1 mg/dL (8.6-10.8); Carbon Dioxide 32 mEq/L (19-29); Chloride 94 mEq/L (98-109); Globulin 3.8 g/dL (2.4-3.5); Glucose 98 mg/dL (70-99); Lipase 6 Units/L (8-78); Osmolality,Calculated 277 (280-300); Potassium 3.8 mEq/L (3.5-4.5); Sodium 133 mEq/L (136-145); eGFR For African Americans > 60 (> 60); eGFR For Non-African Americans > 60 (> 60)
[2017-03-06 07:41] LABS: Anisocytosis 2+ (Not Present); Platelet Estimate Normal (Normal); Target Cells 1+ (Not Present)
--- NOTE | 2017-03-06 08:54 | Cardiology Consult Note ---
Date of Encounter: 03/06/17 Time of Encounter: 09:00 Assessment and Plan (1) CHF (congestive heart failure) Current Visit: Yes Status: Acute Per Cardiology: Patient with known history of nonischemic cardiomyopathy diagnosed in 2013 ( records indicate [facility] in 2013 showed moderate 3 vessel disease with EF 30%) Last echo August 2016 showed EF 30%, indeterminate diastolic function, mildly dilated right ventricle with mild RV hypokinesis, moderately severely dilated left atrium, severely dilated right atrium, mild AR, mild MR, mild TR, no evidence of pulmonary hypertension. Current echo with EF undetermined due to A. fib with RVR, mild MR, mild TR, no pulmonary hypertension. Patient with worsening exertional dyspnea. Patient noted to have conversational dyspnea on exam today. BNP upon arrival 1131. Additionally, underwent recent right thoracentesis with 500 mL fluid removal. Currently on Lasix IV 40 mg twice a day, however current net I&O -320 ml. Will increase Lasix to 80 mg IV twice a day. Kidney fxn stable. Will apply bilateral knee-high ANNIE hose, 1.5 L fluid restriction, daily weights, and strict I&O. I suspect contributing factor due to dietary and medical noncompliance. Patient previously seen by Dr. Rodriguez in outpatient setting in 2013 and according to records did not seem interested in his cardiovascular health and was very dismissive according to records. I had a lengthy discussion with patient regarding importance of low sodium diet and fluid restriction at home. Patient unknown baseline weight. Patient encouraged to monitor weights daily at home upon discharge. Qualifiers: Congestive heart failure type: combined Congestive heart failure chronicity : acute on chronic Qualified Code(s): I50.43 - Acute on chronic combined systolic (congestive) and diastolic (congestive) heart failure (2) Nonischemic cardiomyopathy Current Visit: No Status: Chronic Per Cardiology: Again known history with recent EF 30%. I have preliminary discussion with patient regarding potential ICD in the future and patient not interested. (3) Pleural effusion Current Visit: Yes Status: Chronic Per Cardiology: Right-sided pleural effusion and status post right-sided thoracentesis with 500 mL fluid removal. Current chest x-ray shows: 1. Right hydropneumothorax with increase in the pleural effusion. 2. Cardiomegaly with vascular congestion. Consider pulmonology consult. (4) Atrial fibrillation Current Visit: No Status: Chronic Per Cardiology: According to review of records recently diagnosed with a flutter with RVR August 2016. Currently A. fib with RVR. Currently borderline rate controlled. Coreg recently increased to 25 mg by mouth twice a day today. Will hold CARLOS A inhibitor for now and monitor blood pressure. Continue to titrate medications as heart rate and BP tolerates. Suspect driving factor related to acute on chronic CHF. Anticipate A. fib rate control will improve with more aggressive diuresis. Regarding long-term anticoagulation, concerning since patient was recently started on Coumadin August 2016. Overall H&H appears downward trending since that time. Patient appears to be noncompliant with follow-up regarding INR. Records reviewed and patient did not establish with a [facility]. [facility] was unable to contact patient for monitoring. Coumadin appears to be currently monitored with [facility], however last INR checked in November 2016. Patient with now 2 falls and subsequent right periorbital ecchymosis and right scleral hemorrhage. Patient reports drinks a few "rum and cokes "every evening. Currently on Coumadin being dosed by pharmacy. Discussed and reviewed with Dr. Rodriguez, anticipate may need to discontinue Coumadin at this time due to risk outweighing the benefit. Further recommendations to follow during hospital stay. Qualifiers: Atrial fibrillation type: chronic Qualified Code(s): I48.2 - Chronic atrial fibrillation (5) Anemia Current Visit: No Status: Chronic Per Cardiology: Overall Hgb appears downtrended over past few months. Denies any active bleeding or blood loss. Concerning since on Coumadin that dose not appear to be well monitored. Records reviewed and since started 08/2016, patient did not f/u with [facility] and did not follow INR with Cardiology. INR appears followed by [facility], however last INR done in 11/2016 and he reports he "takes his Coumadin daily and does not check blood levels". Qualifiers: Anemia type: unspecified type Qualified Code(s): D64.9 - Anemia, unspecified (6) Elevated troponin Current Visit: No Status: Chronic Per Cardiology: Mild troponin 0.04. Patient denies any chest pain. According to records moderate CAD from 2013. Suspect demand ischemia in setting of acute on chronic CHF and A. fib with RVR. Continue to monitor. No cardiac rehabilitation warranted at this time. (7) Abdominal aortic aneurysm Current Visit: No Status: Chronic Per Cardiology: Known history of 4.1 cm x 4.2 cm infrarenal abdominal aortic aneurysm with recent CT scan August 2016. Also, noted showed mural thrombus within the aneurysm with mild distal stenosis. Chronic dissection flap within the thrombus. Moderate to severe atherosclerosis with complete occlusion of the inferior mesenteric, right common iliac, and external iliac arteries. Qualifiers: Presence of rupture: without rupture Qualified Code(s): I71.4 - Abdominal aortic aneurysm, without rupture Discussion w patient/family: The assessment and plan as outlined above was discussed with the patient who expressed understanding and agreement. All questions were answered. Thank you for involving us in the care of your patient. Please call with any questions. Patient currently full code. Recommend consider palliative care consult to address long-term code status due to multiple medical co-morbidities. History of Present Illness Consult date: 03/06/17 Requesting physician: Oneida Ramirez Consult reason: Afib RVR Chief complaint: GUZMAN History of present illness: Mr. Ayala is a 66 year old male with a relevant past medical history of nonischemic cardiomyopathy, CAD, nicotine abuse, PAD, and recent diagnosis of new onset atrial flutter with RVR August 2016 and started on Coumadin at that time. Cardiology consult for A. fib with RVR. Patient reports increased dyspnea on exertion at home which led to hospital stay. He denies any chest pain. He denies any palpitations. He reports increased abdominal distention. He does report lower extremities swelling, however unchanged from baseline. He reports fatigue unchanged from his baseline. He denies any dizziness, however reports 2 recent falls which appear to be mechanical in nature with tripping. Additionally, patient believes he is taking Coumadin, however does not know whom manages-- he reports he does not check blood draws with [facility] or regularly at a lab. Patient reports recently moved and now living alone in an apartment. Patient reports he eats canned soups , deli meats, pizza, and popcorn on a regular basis. He does report one to 2 rum and cokes every evening because he is "retired". He denies any active bleeding or blood loss. Past Med Surg Social Fam HX - Past Medical History Attestation: Yes The following information was validated with the patient. Source: patient, old records reviewed Medical history: cancer, cardiomyopathy, CHF, coronary artery disease, hyperlipidemia, hypertension Psychiatric history: no psych history - Past Surgical History Surgical History: no surgical history - Social History Smoking Status: Current every day smoker Smokeless Tobacco Status: No Alcohol use: occasionally Drug use: none - Family History Mother Adopted: Yes Living Status: Still Living Medications and Allergies Aspirin [Lo-Dose Aspirin EC] 81 mg PO DAILY 03/04/17 [History] Atorvastatin [Lipitor] 40 mg PO HS 03/04/17 [History] Carvedilol [Carvedilol] 12.5 mg PO BID 03/04/17 [History] Furosemide [Lasix] 40 mg PO HS 03/04/17 [History] Furosemide [Lasix] 60 mg PO QAM 03/04/17 [History] Lisinopril [Zestril] 5 mg PO DAILY 03/04/17 [History] Warfarin [Coumadin] 5 mg PO 1800 03/04/17 [History] Allergies No Known Allergies Allergy (Verified 03/04/17 11:58) All Systems Review: A 10-system review of systems was performed and is negative for pertinent findings except as documented above in the HPI. - Cardiovascular Cardiovascular: as per HPI, dyspnea on exertion, leg edema - Respiratory Respiratory: dyspnea - Gastrointestinal Gastrointestinal: other (Abdominal bloating and distention) - Musculoskeletal Musculoskeletal: other (2 recent falls with tripping) Physical Examination Vital Signs, Last 4 Hours Temp Pulse Resp BP Pulse Ox 03/06/17 07:18 97.9 F 107 17 119/73 91 General: Conversant HEENT: Normocephaly, Other (Right orbital ecchymosis noted and right scleral hemorrhage) Neck: No JVD, Normal carotid pulses Cardiac: No Murmur, Other (Irregular irregular) Lungs: Other (Diminished breath sounds to right lower lobe; conversational dyspnea noted) Neuro: Alert and responsive, No focal deficits noted Abdomen: Soft, Non-Tender, Other (Abdomen distended, nontender, +1 pitting edema noted) Skin: No rashes noted on visualized skin Musculoskeletal: No Chest Wall Tenderness Extremities: Other (+1-2 pitting edema to bilateral lower extremities) Results 03/06/17 06:05 03/06/17 06:05 Lab Results Laboratory Tests 09/05/16 11/20/16 11/21/16 14:10 13:50 04:11 Hgb 12.8 L 12.3 L 11.8 L Hct 39.1 38.8 36.2 L INR AST ALT Troponin I B-Natriuretic Peptide Albumin Urine Nitrite Ur Leukocyte Esterase Ur Squamous Epith Cells Urine Bacteria Ur Culture Indicated? 03/04/17 03/04/17 03/04/17 09:38 09:38 09:38 Hgb 11.3 L Hct 34.4 L INR AST ALT Troponin I 0.04 H* B-Natriuretic Peptide 1131 H Albumin Urine Nitrite Ur Leukocyte Esterase Ur Squamous Epith Cells Urine Bacteria Ur Culture Indicated? 03/04/17 03/06/17 03/06/17 09:52 06:05 06:05 Hgb 10.0 L Hct 30.8 L INR 1.5 AST ALT Troponin I B-Natriuretic Peptide Albumin Urine Nitrite Positive A Ur Leukocyte Esterase Small H Ur Squamous Epith Cells Moderate H Urine Bacteria Moderate H Ur Culture Indicated? YES A 03/06/17 06:05 Hgb Hct INR AST 33 ALT 19 Troponin I B-Natriuretic Peptide Albumin 2.2 L Urine Nitrite Ur Leukocyte Esterase Ur Squamous Epith Cells Urine Bacteria Ur Culture Indicated? ITS Impressions Head CT 03/04/17 09:32 IMPRESSION: No acute intracranial abnormality. Mild right periorbital swelling. Moderate cerebral atrophy advanced for age. Moderate to large amount of chronic ischemic white matter change appropriate for age. These changes have progressed since the prior study. D/ / Byron Anderson MD / Byron Anderson MD Interpreting Provider: Byron Anderson MD Orbit CT 03/04/17 09:32 IMPRESSION: No acute abnormality of the orbits. No evident fracture. D/ / Byron Anderson MD / Byron Anderson MD Interpreting Provider: Byron Anderson MD Chest X-Ray 03/04/17 10:55 IMPRESSION: Cardiomegaly with pulmonary edema compatible with CHF. Moderate size right pleural effusion with right basilar atelectasis/infiltrate. D/ / Bladimir Ohara MD / Bladimir Ohara MD Interpreting Provider: Bladimir Ohara MD Thoracentesis Ultrasound 03/04/17 11:34 IMPRESSION: Successful ultrasound guided thoracentesis. D/ / Rolando Freeman MD / Rloando Freeman MD Interpreting Provider: Rolando Freeman MD Chest X-Ray 03/04/17 14:51 IMPRESSION: 1. Decrease in size of right pleural effusion status post right thoracentesis. No pneumothorax. 2. Right basilar atelectasis. 3. Cardiomegaly and pulmonary edema. D/ / Bladimir Ohara MD / Bladimir Ohara MD Interpreting Provider: Bladimir Ohara MD Chest X-Ray 03/04/17 23:42 IMPRESSION: Interval development of a small right pneumothorax following a thoracentesis. Recommend short-term follow-up chest radiograph in 1-2 hours to ensure stability. Critical results were called by Dr. Law Liz MD to Jose Ponce RN, on 03/05/2017 at 00:11. D/ / Law Liz MD / Law Liz MD Interpreting Provider: Law Liz MD Chest X-Ray 03/05/17 08:00 IMPRESSION: Stable pulmonary vascular congestion compatible with mild CHF. Moderate-sized right pleural effusion which has slightly increased. Trace right pneumothorax which is improved. D/ / 03/05/2017 08:59:26 Edwar Galaviz MD / vicente Interpreting Provider: Edwar Galaviz MD Impressions Chest X-Ray 03/06/17 07:56 IMPRESSION: 1. Right hydropneumothorax with increase in the pleural effusion. 2. Cardiomegaly with vascular congestion. D/ / Sonny Arechiga MD / Sonny Arechiga MD Interpreting Provider: Sonny Arechiga MD Intake & Output 03/03/17 03/04/17 03/05/17 03/06/17 23:59 23:59 23:59 23:59 Intake Total 240 / 240 2490 / 2490 200 / 200 Output Total 2750 / 2750 500 / 500 Balance -2510 / -2510 1989 / 1989 200 / 200 Weight 109.769 kg 110.705 kg Active Medications Acetaminophen (Tylenol) 650 mg PO Q6HR PRN PRN Reason: Mild Pain (1-3) Stop: 09/03/17 11:36 Last Admin: 03/04/17 20:19 Dose: 650 mg Aspirin (Aspirin Ec) 81 mg PO DAILY CARLEE Stop: 09/04/17 09:01 Last Admin: 03/05/17 09:14 Dose: 81 mg Atorvastatin Calcium (Lipitor) 40 mg PO HS CARLEE Stop: 09/03/17 21:01 Last Admin: 03/05/17 20:20 Dose: 40 mg Carvedilol (Coreg) 25 mg PO BIDWM CARLEE Stop: 09/04/17 10:39 Last Admin: 03/05/17 16:09 Dose: 25 mg Furosemide (Lasix) 40 mg IVP BIDDIURETIC CARLEE Stop: 09/03/17 12:46 Last Admin: 03/05/17 16:10 Dose: 40 mg Guaifenesin (Robitussin/Dm) 5 ml PO Q6HR PRN PRN Reason: Cough Stop: 09/03/17 20:41 Last Admin: 03/04/17 22:05 Dose: 5 ml Naloxone HCl (Narcan) 0.4 mg IVP Q2MIN PRN PRN Reason: Opioid Reversal Stop: 09/03/17 11:36 Oxycodone HCl (Roxicodone) 5 mg PO Q6HR PRN PRN Reason: Pain Stop: 09/03/17 20:41 Last Admin: 03/04/17 22:51 Dose: 5 mg Potassium Chloride (Potassium Chloride) 40 meq PO DAILY CARLEE Stop: 09/04/17 09:01 Last Admin: 03/05/17 09:15 Dose: 40 meq Warfarin Sodium (Coumadin Perpt) 1 each PO DAILY@1800 PRN PRN Reason: SEE COMMENTS Stop: 09/03/17 18:01 - Imaging and Cardiology Chest Xray: report reviewed Echo: report reviewed - EKG Interpretation EKG results cardiology: personally reviewed (A. fib with RVR in the 110s to 120s ), other (Plan for lunch reviewed with average heart rate 98, currently A. fib in the 100s.) Consult Discharge Plan - Plan Referrals: German Olmedo DO [Primary Care Provider] - 03/20/17 1:00 pm
[2017-03-06] MEDS: Furosemide 40 MG/4 ML VIAL IVP SCH ×2 (08:59→17:18)
[2017-03-06] MEDS: Aspirin Enteric Coated 81 MG Tablet PO SCH (08:59)
--- NOTE | 2017-03-06 15:21 | Internal Med Progress Note ---
Date of Encounter: 03/06/17 Time of Encounter: 09:30 - Assessment and plan (1) CHF exacerbation Current Visit: No Status: Acute Assessment and plan: At home, patient is on furosemide 40 mg at bedtime and 60 mg in the morning. We have been diuresing him with 40 mg IV twice a day thus far but he remains fluid overloaded. Furosemide dosage increased 80 mg IV twice a day. He was again educated on 1.5 L fluid restricted diet however strong suspicion for noncompliance. Patient remains with 1+ pitting edema bilaterally. Breath sounds decreased on the right. Repeat chest x-ray revealing right sided hydropneumothorax with increase in pleural effusion. Chest x-ray also revealing cardiomegaly with vascular congestion. Suggestive of continued fluid overload. Patient denies shortness of breath however on examination, he has mild respiratory distress. He has been requiring oxygen at times but frequently removes his oxygen despite being told to leave his oxygen in place. Renal functioning has remained stable, we will trend with increased dose of furosemide. Spoke to pulmonology regarding possible Pleurx catheter given that patient had a thoracentesis 2 days ago with removal of 600 mL of transudate fluid and is in need of another one. Analysis of pleural fluid unremarkable. Pulmonology recommended consult during IR for another thoracentesis and then possible Pleurx catheter if indicated at a later time. IR has left for the day , patient is clinically stable, we will plan for thoracentesis in the morning per IR. We will continue to diurese with IV furosemide at increased dose. Of note, echocardiogram was attempted however unable to be obtained with recommendation for repeat once his heart rate is better controlled. Cardiology on board. Impressions Chest X-Ray 03/06/17 07:56 IMPRESSION: 1. Right hydropneumothorax with increase in the pleural effusion. 2. Cardiomegaly with vascular congestion. D/ / Sonny Arechiga MD / Sonny Arechiga MD Interpreting Provider: Sonny Arechiga MD Impressions Chest X-Ray 03/04/17 10:55 IMPRESSION: Cardiomegaly with pulmonary edema compatible with CHF. Moderate size right pleural effusion with right basilar atelectasis/infiltrate. D/ / Bladimir Ohara MD / Bladimir Ohara MD Interpreting Provider: Bladimir Ohara MD Thoracentesis Ultrasound 03/04/17 11:34 IMPRESSION: Successful ultrasound guided thoracentesis. D/ / Rolando Freeman MD / Rolando Freeman MD Interpreting Provider: Rolando Freeman MD Chest X-Ray 03/04/17 14:51 IMPRESSION: 1. Decrease in size of right pleural effusion status post right thoracentesis. No pneumothorax. 2. Right basilar atelectasis. 3. Cardiomegaly and pulmonary edema. D/ / Bladimir Ohara MD / Bladimir Ohara MD Interpreting Provider: Bladimir Ohara MD Chest X-Ray 03/04/17 23:42 IMPRESSION: Interval development of a small right pneumothorax following a thoracentesis. Recommend short-term follow-up chest radiograph in 1-2 hours to ensure stability. Critical results were called by Dr. Lwa Liz MD to Jose Ponce RN, on 03/05/2017 at 00:11. D/ / Law Liz MD / Law Liz MD Interpreting Provider: Law Liz MD Chest X-Ray 03/05/17 08:00 IMPRESSION: Stable pulmonary vascular congestion compatible with mild CHF. Moderate-sized right pleural effusion which has slightly increased. Trace right pneumothorax which is improved D/ / 03/05/2017 08:59:26 Edwar Galaviz MD / vicente Interpreting Provider: Edwar Galaviz MD Echocardiogram impressions: Technically challenging study was suboptimal windows. Patient was in A. fib with RVR during the study. Difficult to quantify LV EF. Recommend repeat study with Definity when heart rate normalizes. Normal RV size. Function not well evaluated. Mild MR. Mild TR. No pulmonary hypertension by TR gradient, 23 mmHg. Qualifiers: Qualified Code(s): I50.43 - Acute on chronic combined systolic (congestive) and diastolic (congestive) heart failure (2) Pleural effusion Current Visit: Yes Status: Chronic (3) Recurrent falls Current Visit: Yes Status: Acute Assessment and plan: OT and PT have recommended inpatient/swing bed. business services sales representative on board. As to whether or not the patient will agree to inpatient rehabilitation, his position has changed several times, will let director social welfare speak to him regarding his options. Head CT negative for acute processes. Orbital CT negative for acute processes. Patient needs further diuresis and likely another thoracentesis, not fit for discharge at this time. Head CT 03/04/17 09:32 IMPRESSION: No acute intracranial abnormality. Mild right periorbital swelling. Moderate cerebral atrophy advanced for age. Moderate to large amount of chronic ischemic white matter change appropriate for age. These changes have progressed since the prior study. D/ / Byron Anderson MD / Byron Anderson MD Interpreting Provider: Byron Anderson MD Orbit CT 03/04/17 09:32 IMPRESSION: No acute abnormality of the orbits. No evident fracture. D/ / Byron Anderson MD / Byron Anderson MD Interpreting Provider: Byron Anderson MD (4) Weakness Current Visit: Yes Status: Acute Assessment and plan: OT and PT have been brought on board and have recommended inpatient/swing bed. Services on board as well. (5) Atrial fibrillation with rapid ventricular response Current Visit: No Status: Acute Assessment and plan: Anticoagulated with Coumadin however he is subtherapeutic so IPC's ordered. Rate uncontrolled, so he received an dose of IV Lopressor on the first two days of his admission. His Coreg dosage was increased and his heart rate remains in the 100-120 range. Cardiology brought on board for further assistance with rate control. Still diuresing for heart failure exacerbation, Lasix increased. We will continue to trend. (6) Atrial fibrillation Current Visit: No Status: Chronic Qualifiers: Qualified Code(s): I48.2 - Chronic atrial fibrillation (7) Anemia Current Visit: No Status: Chronic Assessment and plan: Mild, stable, will trend. No signs of active bleeding. (8) Elevated troponin Current Visit: No Status: Chronic Assessment and plan: In review of his chart, patient has had borderline elevated troponins since August 2016. He denies shortness of breath or chest pain. (9) Hypertension Current Visit: Yes Status: Chronic Assessment and plan: Controlled. His home carvedilol and lisinopril have been continued. He is also receiving IV furosemide, will trend Qualifiers: Qualified Code(s): I10 - Essential (primary) hypertension (10) DVT prophylaxis Current Visit: No Status: Acute Assessment and plan: He is on Coumadin however he is subtherapeutic with an INR 1.5 today. We will add IPC's. Anemia at the low end of his normal, we will trend and hold off on additional pharmacologic prophylaxis at this time. (11) Abdominal aortic aneurysm Current Visit: No Status: Chronic Qualifiers: Qualified Code(s): I71.4 - Abdominal aortic aneurysm, without rupture (12) PAD (peripheral artery disease) Current Visit: No Status: Chronic (13) Tobacco use disorder Current Visit: No Status: Chronic Assessment and plan: Declines counseling (14) Hypokalemia Current Visit: Yes Status: Resolved (15) Elevated bilirubin Current Visit: Yes Status: Acute Assessment and plan: Patient denies abdominal pain, stable; will trend. No jaundice on examination (16) Urinary tract infection Current Visit: Yes Status: Ruled-out Assessment and plan: Urine culture negative, we will discontinue Cipro. Patient denies dysuria. Qualifiers: Qualified Code(s): N39.0 - Urinary tract infection, site not specified - Subjective Interval history: Patient seen and examined. On examination, patient sitting upright on the side of his bed. Patient does not currently have oxygen on and states "it keeps falling off." Patient denies pain or shortness of breath above his norm at this time. He states he is "fine." He is endorsing a normal appetite and is upset about the fluid restriction. - Constitutional Vitals: Temp Pulse Resp BP Pulse Ox 97.7 F 91 17 108/65 91 03/06/17 11:54 03/06/17 11:54 03/06/17 11:54 03/06/17 11:54 03/06/17 11:54 General appearance: Present: cooperative, A&O X 3, pleasant, no acute distress, answers questions appropriately - Head Head exam: Present: atraumatic, normocephalic - Eye Eye exam: Present: PERRL, conjuntiva pink, sclera anicteric Pupils: Present: PERRL - Neck Neck exam general surgery: Present: supple, trachea midline. Absent: lymphadenopathy - Respiratory Respiratory exam: Present: accessory muscle use, decreased breath sounds (right side), respiratory distress (mild). Absent: rales, rhonchi, wheezes - Cardiovascular Cardiovascular exam: Present: RRR, +S1, +S2. Absent: diastolic murmur, gallop, rubs, systolic murmur - GI/Abdominal GI/Abdominal exam: Present: normal bowel sounds, soft, no peritoneal signs. Absent: distended, tenderness - Extremities Exam Extremities exam: Present: pedal edema, warm, radial pulses palpable and symetrical. Absent: calf tenderness, cyanotic - Neurological Exam Neurological exam: Present: alert, CN II-XII intact, normal gait, oriented X3, no focal deficits, strengths equal and symetr throughout. Absent: pronater drift, facial droop, speech deficit - Skin Skin exam: Present: dry, intact, pallor, warm Internal Medicine: Result - Labs CBC & Chem 7: 03/06/17 06:05 03/06/17 06:05 Labs: Short CBC 03/06/17 Range/Units 06:05 WBC 8.5 (4.3-11.1) K/mcL Hgb 10.0 L (12.9-16.9) g/dL Hct 30.8 L (37.5-50.1) % Plt Count 220 (140-400) K/mcL Neutrophils # 5.8 (1.6-8.9) K/mcL BMP 03/06/17 06:05 Sodium 133 L Potassium 3.8 Chloride 94 L Carbon Dioxide 32 H BUN 15 Creatinine 0.84 Glucose 98 Calcium 8.1 L Liver Function 03/06/17 Range/Units 06:05 Total Bilirubin 3.0 H (0.2-1.2) mg/dL Direct Bilirubin 2.5 H (0.0-0.5) mg/dL AST 33 (5-34) Units/L ALT 19 (0-55) Units/L Alkaline Phosphatase 214 H (38-126) Units/L Albumin 2.2 L (3.5-5.0) g/dL - ABG Interpretation ABG results: PT/INR, D-dimer PT 16.8 Seconds (9.4-12.1) H 03/06/17 06:05 - Impressions Impressions Chest X-Ray 03/06/17 07:56 IMPRESSION: 1. Right hydropneumothorax with increase in the pleural effusion. 2. Cardiomegaly with vascular congestion. D/ / Sonny Arechiga MD / Sonny Arechiga MD Interpreting Provider: Sonny Arechiga MD Consult Discharge Plan - Plan Referrals: German Olmedo DO [Primary Care Provider] - 03/20/17 1:00 pm
[2017-03-06] MEDS ORDERED: *HR* Warfarin 7.5 MG TABLET PO ONE (18:00)
[2017-03-07 06:24] LABS: BUN/Creatinine Ratio 22 (6-26); Blood Urea Nitrogen 18 mg/dL (8-26); Calcium 8.2 mg/dL (8.6-10.8); Carbon Dioxide 29 mEq/L (19-29); Chloride 95 mEq/L (98-109); Glucose 105 mg/dL (70-99); INR 1.6; Osmolality,Calculated 278 (280-300); Potassium 4.2 mEq/L (3.5-4.5); Prothrombin Time 17.7 Seconds (9.4-12.1); Sodium 133 mEq/L (136-145); eGFR For African Americans > 60 (> 60); eGFR For Non-African Americans > 60 (> 60)
[2017-03-07 06:50] LABS: Basophils # 0.1 K/mcL (0.0-0.2); Basophils % 0.6 %; Eosinophils # 0.2 K/mcL (0.0-0.6); Eosinophils % 1.8 %; Hematocrit 29.3 % (37.5-50.1); Hemoglobin 9.9 g/dL (12.9-16.9); Immature Granulocytes % 0.5 % (0-4); Lymphocytes # 0.9 K/mcL (0.6-4.6); Lymphocytes % 11.2 %; Mean Corpuscular HGB Conc 33.8 g/dL (31.6-35.5); Mean Corpuscular Hemoglobin 33.2 pg (28.0-33.3); Mean Corpuscular Volume 98.3 fL (83.0-100.0); Mean Platelet Volume 9.9 fL (9.4-12.4); Monocytes # 1.4 K/mcL (0.0-1.3); Neutrophils # 5.6 K/mcL (1.6-8.9); Nucleated Red Blood Cells 0.2 /100 WBC (0); Platelet Count 211 K/mcL (140-400); Red Blood Count 2.98 M/mcL (4.19-5.50); Red Cell Distribution Width 23.9 % (11.5-14.5); Segmented Neutrophils % 68.9 %
[2017-03-07 07:28] LABS: Anisocytosis 2+ (Not Present); Platelet Estimate Normal (Normal); Target Cells 1+ (Not Present)
[2017-03-07] MEDS: Furosemide 40 MG/4 ML VIAL IVP SCH ×2 (08:44→16:53)
[2017-03-07] MEDS: Aspirin Enteric Coated 81 MG Tablet PO SCH (08:44)
--- NOTE | 2017-03-07 09:11 | Cardiology Progress Note ---
Date of Encounter: 03/07/17 Time of Encounter: 08:30 Assessment and Plan (1) CHF (congestive heart failure) Current Visit: Yes Status: Acute Per Cardiology: Patient with known history of nonischemic cardiomyopathy diagnosed in 2013 ( records indicate [facility] in 2013 showed moderate 3 vessel disease with EF 30%) Last echo August 2016 showed EF 30%, indeterminate diastolic function, mildly dilated right ventricle with mild RV hypokinesis, moderately severely dilated left atrium, severely dilated right atrium, mild AR, mild MR, mild TR, no evidence of pulmonary hypertension. Current echo with EF undetermined due to A. fib with RVR, mild MR, mild TR, no pulmonary hypertension. Patient with worsening exertional dyspnea. Patient noted to have conversational dyspnea on exam today. BNP upon arrival 1131. Additionally, underwent recent right thoracentesis with 500 mL fluid removal. Per discussion with hospitalist service patient underwent repeat right thoracentesis with about 600 mL fluid removal. Now on Lasix IV 80 mg twice a day, however current net I&O +1340 ml. Kidney fxn stable. Discussed with Dr. Diaz, will add Zaroxolyn 2.5 mg by mouth daily Recommend apply bilateral knee-high ANNIE hose, 1.5 L fluid restriction, daily weights, and strict I&O. I suspect contributing factor due to dietary and medical noncompliance. Patient previously seen by Dr. Rodriguez in outpatient setting in 2013 and according to records did not seem interested in his cardiovascular health and was very dismissive according to records. Consider transfer to higher acuity unit, oxygen saturation noted to be 78% on room air and refusing to apply oxygen. Also, consider evaluation to address long -term CODE STATUS. Qualifiers: Congestive heart failure type: combined Congestive heart failure chronicity : acute on chronic Qualified Code(s): I50.43 - Acute on chronic combined systolic (congestive) and diastolic (congestive) heart failure (2) Nonischemic cardiomyopathy Current Visit: No Status: Chronic Per Cardiology: Again known history with recent EF 30%. I had preliminary discussion with patient regarding potential ICD in the future and patient not interested. (3) Pleural effusion Current Visit: Yes Status: Chronic Per Cardiology: Right-sided pleural effusion and status post right-sided thoracentesis with 500 mL fluid removal. Current chest x-ray shows: 1. Right hydropneumothorax with increase in the pleural effusion. 2. Cardiomegaly with vascular congestion. Repeat thoracentesis with 600 and all fluid removal today. Continue to monitor closely. Consider pulmonology consult. (4) Atrial fibrillation Current Visit: No Status: Chronic Per Cardiology: According to review of records recently diagnosed with a flutter with RVR August 2016. Currently A. fib with RVR. Currently borderline rate ocontrolled. Coreg recently increased to 25 mg by mouth twice a day today. CARLOS A inhibitor off for now and monitor blood pressure. Continue to titrate medications as heart rate and BP tolerates. Suspect driving factor related to acute on chronic CHF. Anticipate A. fib rate control will improve with more aggressive diuresis. Regarding long-term anticoagulation, concerning since patient was recently started on Coumadin August 2016. Overall H&H appears downward trending since that time. Patient appears to be noncompliant with follow-up regarding INR. Records reviewed and patient did not establish with [facility]. [facility] was unable to contact patient for monitoring. Coumadin appears to be currently monitored with [facility], however last INR checked in November 2016. Patient with now 2 falls and subsequent right periorbital ecchymosis and right scleral hemorrhage. Patient reports drinks a few "rum and cokes "every evening. Currently on Coumadin being dosed by pharmacy. Patient agreeable to follow-up with [facility] upon discharge if Coumadin continued. I recommend close and cautious monitoring during hospital stay. Recommend referral to [facility] for long- term monitoring. Discussed and reviewed with Dr. Diaz. Further recommendations to follow during hospital stay. Qualifiers: Atrial fibrillation type: chronic Qualified Code(s): I48.2 - Chronic atrial fibrillation (5) Anemia Current Visit: No Status: Chronic Per Cardiology: Overall Hgb appears downtrended over past few months. Continues to slightly downward trend. Guaiac stool. Denies any active bleeding or blood loss. Concerning since on Coumadin that dose not appear to be well monitored. Records reviewed and since started 08/2016, patient did not f/u with [facility] and did not follow INR with Cardiology. INR appears followed by [facility], however last INR done in 11/2016 and he reports he "takes his Coumadin daily and does not check blood levels". Qualifiers: Anemia type: unspecified type Qualified Code(s): D64.9 - Anemia, unspecified (6) Elevated troponin Current Visit: No Status: Chronic Per Cardiology: Mild troponin 0.04. Patient denies any chest pain. According to records moderate CAD from 2013. Suspect demand ischemia in setting of acute on chronic CHF and A. fib with RVR. Continue to monitor. . (7) Abdominal aortic aneurysm Current Visit: No Status: Chronic Per Cardiology: Known history of 4.1 cm x 4.2 cm infrarenal abdominal aortic aneurysm with recent CT scan August 2016. Also, noted showed mural thrombus within the aneurysm with mild distal stenosis. Chronic dissection flap within the thrombus. Moderate to severe atherosclerosis with complete occlusion of the inferior mesenteric, right common iliac, and external iliac arteries. Qualifiers: Presence of rupture: without rupture Qualified Code(s): I71.4 - Abdominal aortic aneurysm, without rupture Discussion w patient/family: The assessment and plan as outlined above was discussed with the patient who expressed understanding and agreement. All questions were answered. Thank you for involving us in the care of your patient. Please call with any questions. Patient currently full code. Recommend consider palliative care consult to address long-term code status due to multiple medical co-morbidities. Subjective Principal diagnosis: CHF, Afib RVR, Medical Noncompliance Interval history: Patient denies any chest pain or palpitations overnight. Reports shortness of breath and abdominal distension remain about the same. He denies any awareness of any active bleeding or blood loss. Reports he was unaware he was supposed to follow-up with Coumadin clinic regarding his Coumadin. He is interested in following up as outpatient. Patient currently refusing to utilize nasal cannula oxygen. Objective Vital Signs, Last 4 Hours Temp Pulse Resp BP Pulse Ox 03/07/17 08:40 80 03/07/17 08:34 97.8 F 93 16 114/72 80 General: Conversant HEENT: Other (Right orbital ecchymosis and right scleral hemorrhage noted) Cardiac: No Murmur, Other (Irregularly irregular) Lungs: Other (Conversational dyspnea noted, decreased breath sounds to right lower lobe, respirations slightly labored at rest, most recent O2 sat 78%-- patient refuses to apply NC O2 d/t "I'm eating") Neuro: Alert and responsive, No focal deficits noted Abdomen: Other (obese, +1 abdominal pitting edema, firm, distended, nontender) Skin: No rashes noted on visualized skin Musculoskeletal: No Chest Wall Tenderness Extremities: Other (+1-2 pitting edema bilateral LE, refuses to wear ANNIE hose) Results 03/07/17 05:55 03/07/17 05:55 Lab Results Laboratory Tests 09/05/16 09/25/16 09/27/16 14:10 12:27 03:30 INR 1.4 1.6 1.5 11/20/16 11/21/16 11/22/16 13:50 04:11 05:21 INR 5.4 H* 4.4 H* 3.2 11/23/16 12/17/16 03/04/17 05:44 11:10 09:38 INR 2.3 1.8 1.4 03/05/17 03/06/17 04:36 06:05 INR 1.5 1.5 - EKG Interpretation EKG results cardiology: other (Telemetry reviewed with average rate past 12 hours 95, remains atrial fibrillation, no significant events appreciated) Consult Discharge Plan - Plan Referrals: German Olmedo DO [Primary Care Provider] - 03/20/17 1:00 pm
--- NOTE | 2017-03-07 14:56 | Internal Med Progress Note ---
Date of Encounter: 03/07/17 Time of Encounter: 14:53 - Assessment and plan (1) CHF (congestive heart failure) Current Visit: Yes Status: Acute Assessment and plan: recurrent worsening pleural effusion despite being on Lasix and thoracentesis. Patient is poorly compliant to medication and follow-up. Cardiology on board, IV Lasix has been increased to 80 twice a day yesterday. Patient is status post repeat thoracentesis today with removal of 600 mL of pleural fluid. Patient still has dependent edema and appears volume overload, as per cardio will need more days of IV diuresis, appreciate cardio recommendtaions. history of nonischemic cardiomyopathy diagnosed in 2013 (records indicate [facility] in 2013 showed moderate 3 vessel disease with EF 30%) Last echo August 2016 showed EF 30%, indeterminate diastolic function, mildly dilated right ventricle with mild RV hypokinesis, moderately severely dilated left atrium, severely dilated right atrium, mild AR, mild MR, mild TR, no evidence of pulmonary hypertension. Current echo with EF undetermined due to A. fib with RVR, mild MR , mild TR, no pulmonary hypertension. Qualifiers: Congestive heart failure type: combined Congestive heart failure chronicity : acute on chronic Qualified Code(s): I50.43 - Acute on chronic combined systolic (congestive) and diastolic (congestive) heart failure (2) Pleural effusion Current Visit: Yes Status: Chronic Assessment and plan: improved on repeat CXR today after thoracentesis. will continue to monitor, continue IV lasix. (3) Atrial fibrillation with rapid ventricular response Current Visit: No Status: Acute Assessment and plan: cardio following,rate controlled, with history of noncompliance and recurrent falls, continuing anticoagulation can be an issue. (4) Hypertension Current Visit: Yes Status: Chronic Assessment and plan: Controlled. His home carvedilol and lisinopril have been continued. He is also receiving IV furosemide, will trend Qualifiers: Hypertension type: essential hypertension Qualified Code(s): I10 - Essential (primary) hypertension (5) Recurrent falls Current Visit: Yes Status: Acute Assessment and plan: OT and PT have recommended inpatient/swing bed. airfield services officer on board. As to whether or not the patient will agree to inpatient rehabilitation, his position has changed several times, will let social services specialist speak to him regarding his options. - Subjective Interval history: Patient seen in the bedside, status post repeat thoracentesis today with removal of 600 mL of pleural fluid. He reports he feels much better after the thoracentesis. He has history of poor compliance to diet and medications and follow-up. - Constitutional Vitals: Temp Pulse Resp BP Pulse Ox 97.8 F 95 22 113/77 87 03/07/17 11:56 03/07/17 11:56 03/07/17 11:56 03/07/17 11:56 03/07/17 11:56 General appearance: Present: cooperative, A&O X 3, pleasant, no acute distress, answers questions appropriately Exam: - Head Head exam: Present: atraumatic, normocephalic - Eye Eye exam: Present: PERRL, conjuntiva pink, sclera anicteric Pupils: Present: PERRL - Neck Neck exam general surgery: Present: supple, trachea midline. Absent: lymphadenopathy - Respiratory Respiratory exam: Present: decreased breath sounds (right side), no wheezing Absent: rales, rhonchi, wheezes - Cardiovascular Cardiovascular exam: Present: RRR, +S1, +S2. Absent: diastolic murmur, gallop, rubs, systolic murmur - GI/Abdominal GI/Abdominal exam: Present: normal bowel sounds, soft, no peritoneal signs. Absent: distended, tenderness - Extremities Exam Extremities exam: Present: pedal edema, warm, radial pulses palpable and symetrical. Absent: calf tenderness, cyanotic - Neurological Exam Neurological exam: Present: alert, CN II-XII intact, normal gait, oriented X3, no focal deficits, strengths equal and symetr throughout. Absent: pronater drift, facial droop, speech deficit - Skin Skin exam: Present: dry, intact, pallor, warm Internal Medicine: Result - Labs CBC & Chem 7: 03/07/17 05:55 03/07/17 05:55 Labs: Short CBC 03/07/17 Range/Units 05:55 WBC 8.1 (4.3-11.1) K/mcL Hgb 9.9 L (12.9-16.9) g/dL Hct 29.3 L (37.5-50.1) % Plt Count 211 (140-400) K/mcL Neutrophils # 5.6 (1.6-8.9) K/mcL BMP 03/07/17 05:55 Sodium 133 L Potassium 4.2 Chloride 95 L Carbon Dioxide 29 BUN 18 Creatinine 0.83 Glucose 105 H Calcium 8.2 L - ABG Interpretation ABG results: PT/INR, D-dimer PT 17.7 Seconds (9.4-12.1) H 03/07/17 05:55 - Impressions Impressions Thoracentesis Ultrasound 03/07/17 00:00 IMPRESSION: Successful ultrasound guided thoracentesis. D/ / Chato James MD / Chato James MD Interpreting Provider: Chato James MD Chest X-Ray 03/07/17 09:21 IMPRESSION: 1. Status post right thoracentesis with improved effusion and persistent atelectasis. 2. Questionable trace right lateral pneumothorax. D/ / 03/07/2017 11:02:03 Bello Epperson MD / onofre Interpreting Provider: Bello Epperson MD Chest X-Ray 03/07/17 13:20 IMPRESSION: 1. Small right pleural effusion which is in part nondependent. 2. No pneumothorax identified. 3. Persistent pulmonary vascular congestion. D/ / Eduin Adorno MD / Eduin Adorno MD Interpreting Provider: Eduin Adorno MD Consult Discharge Plan - Plan Referrals: German Olmedo DO [Primary Care Provider] - 03/20/17 1:00 pm
--- NOTE | 2017-03-07 15:38 | Electrocardiograph Report ---
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
[2017-03-07] MEDS: metOLazone 2.5 MG TABLET PO SCH (17:23)
[2017-03-07] MEDS ORDERED: *HR* Warfarin 5 MG TABLET PO ONE (18:00)
[2017-03-08 04:52] LABS: INR 2.2
[2017-03-08 04:59] LABS: BUN/Creatinine Ratio 21 (6-26); Blood Urea Nitrogen 17 mg/dL (8-26); Calcium 8.4 mg/dL (8.6-10.8); Carbon Dioxide 31 mEq/L (19-29); Chloride 93 mEq/L (98-109); Glucose 91 mg/dL (70-99); Osmolality,Calculated 275 (280-300); Potassium 3.8 mEq/L (3.5-4.5); Sodium 132 mEq/L (136-145); eGFR For African Americans > 60 (> 60); eGFR For Non-African Americans > 60 (> 60)
[2017-03-08] MEDS: Furosemide 40 MG/4 ML VIAL IVP SCH (08:14)
[2017-03-08] MEDS: Aspirin Enteric Coated 81 MG Tablet PO SCH (08:15)
[2017-03-08] MEDS: metOLazone 2.5 MG TABLET PO SCH (08:15)
[2017-03-08 08:43] LABS: Hemoglobin 9.8 g/dL (12.9-16.9); Mean Corpuscular HGB Conc 32.7 g/dL (31.6-35.5); Mean Corpuscular Hemoglobin 32.8 pg (28.0-33.3); Mean Corpuscular Volume 100.3 fL (83.0-100.0); Mean Platelet Volume 9.6 fL (9.4-12.4); Platelet Count 212 K/mcL (140-400); Red Blood Count 2.99 M/mcL (4.19-5.50); Red Cell Distribution Width 23.7 % (11.5-14.5)
[2017-03-08 09:34] LABS: Acanthocytes 1+ (Not Present); Anisocytosis 2+ (Not Present); Hypochromasia Present (Not Present); Lymphocytes # 1.2 K/mcL (0.6-4.6); Monocytes # 0.6 K/mcL (0.0-1.3); Neutrophils # 5.9 K/mcL (1.6-8.9); Platelet Estimate Normal (Normal)
[2017-03-08 09:35] LABS: Platelet Clumps Few (Not Present); Polychromasia 1+ (Not Present)
--- NOTE | 2017-03-08 11:07 | Cardiology Progress Note ---
Date of Encounter: 03/08/17 Time of Encounter: 11:04 Assessment and Plan (1) CHF (congestive heart failure) Current Visit: Yes Status: Acute Per Cardiology: Patient with known history of nonischemic cardiomyopathy diagnosed in 2013 ( records indicate [facility] in 2014 showed moderate 3 vessel disease with EF 30%) Last echo August 2016 showed EF 30%, indeterminate diastolic function, mildly dilated right ventricle with mild RV hypokinesis, moderately severely dilated left atrium, severely dilated right atrium, mild AR, mild MR, mild TR, no evidence of pulmonary hypertension. Current echo with EF undetermined due to A. fib with RVR, mild MR, mild TR, no pulmonary hypertension. Patient presented with worsening exertional dyspnea and weight gain. BNP upon arrival 1131. S/p thoracentesis x2. On lasix 80 mg IV BID and zaroxolyn started yesterday. Pt continues to have conversational dyspnea. I&O not measured and no output recorded. + 1340 for stay. Patient states he has urinated frequently and no one is measuring. Reports improvement in symptoms. SPO2 improved to 92-95% on RA at rest. Declined oxygen during his stay. Recommend at least 24 hours more of diuresis. Patient states he will leave AMA today if he has to and is not staying. Strict I&O ordered. Discussed with Dr. Diaz. If patient will not stay change lasix to bumex 2 mg BID and add aldactone. Stop zaroxylyn. BMP early next week. CHF education reviewed. He reports multiple items high in salt he eats at home. Reports he will try to make some changes but does not want to change diet to much. Low sodium diet and daily weights reviewed. Close outpatient f/u in cardiology office in 1 week. Patient noted to be non-compliant in the past. Consider discussion of CODE STATUS/ palliative care. Qualifiers: Congestive heart failure type: combined Congestive heart failure chronicity : acute on chronic Qualified Code(s): I50.43 - Acute on chronic combined systolic (congestive) and diastolic (congestive) heart failure (2) Elevated troponin Current Visit: No Status: Chronic Per Cardiology: Mild troponin 0.04. Patient denies any chest pain. According to records moderate CAD from 2013. Suspect demand ischemia in setting of acute on chronic CHF and A. fib with RVR. Continue to monitor. . (3) Atrial fibrillation Current Visit: No Status: Chronic Per Cardiology: According to review of records recently diagnosed with a flutter with RVR August 2016. Currently A flutter with avg HR 97 bpm. HR 80-90's currently. Coreg recently increased to 25 mg by mouth twice a day today. Suspect driving factor related to acute on chronic CHF. HR improving with diuresis. Currently on coumadin. INR was not closely monitored in outpt setting d/t patient being difficult to contact. Last INR in 2016. Recommend referral to [facility]. Referral sent to office to set up. Patient also noted to have two falls recently. Discussed with rosa elena. Plan is to continue coumadin with better monitoring. He is also noted to have down trending Hgb during stay. No evidence of acute bleeding. I will order stool guiac to be completed. Recommend repeat CBC in outpt setting on saturday. ACMS referral will be set up by [facility]. INR will need to be watched by our office until set up. Qualifiers: Atrial fibrillation type: chronic Qualified Code(s): I48.2 - Chronic atrial fibrillation (4) Anemia Current Visit: No Status: Chronic Per Cardiology: Overall Hgb appears downtrended over past few months. Continues to slightly downward trend. Guaiac stool ordered. Denies any active bleeding or blood loss. Continue close monitoring. Qualifiers: Anemia type: unspecified type Qualified Code(s): D64.9 - Anemia, unspecified (5) Pleural effusion Current Visit: Yes Status: Chronic Per Cardiology: Right-sided pleural effusion and status post right-sided thoracentesis with 500 mL fluid removal. Current chest x-ray shows: Repeat thoracentesis with 600 and all fluid removal yesterday. CXR showed small right pleural effusion. No pnuemothorax. Persistent vascular congestion. Continue to monitor closely. Discussion w patient/family: The assessment and plan as outlined above was discussed with the patient and/or family members who expressed understanding and agreement. All questions were answered. Thank you for involving us in the care of your patient. Please call with any questions. Subjective Principal diagnosis: CHF, Afib RVR, Medical Noncompliance Interval history: Patient reports he is breathing better and BLE edema improved. States he is going home no matter what. Objective Vital Signs, Last 4 Hours Temp Pulse Resp BP Pulse Ox 03/08/17 07:14 97.3 F L 68 16 96/55 95 General: Conversant, Other (conversational dyspnea noted) HEENT: Atraumatic, Normocephaly, Mucus Membranes Moist Neck: No JVD, Normal carotid pulses Cardiac: Reg Rate and Rhythm, Normal S1 and S2, No Murmur Lungs: Other (LSCTA posteriorly, Rales noted in right upper lobe anteriorly. ) Neuro: Alert and responsive, No focal deficits noted Abdomen: Soft, Non-Tender, Other (Mildly distended.) Musculoskeletal: No Chest Wall Tenderness Extremities: No Clubbing, No Cyanosis, Normal Pulses, Other (2+ edema up to his knees. BLE scaling and dry skin. ) Results 03/08/17 04:07 03/08/17 04:07 Lab Results 03/08/17 03/08/17 03/08/17 04:07 04:07 04:07 WBC 7.7 Hgb 9.8 L Hct 30.0 L Plt Count 212 INR 2.2 Sodium 132 L Potassium 3.8 Chloride 93 L Carbon Dioxide 31 H BUN 17 Creatinine 0.80 Glucose 91 Calcium 8.4 L Consult Discharge Plan - Plan Instructions: Heart Failure (DC), Chronic Hypertension (DC) Additional Instructions: Follow up with your primary care provider as scheduled, follow-up with cardiology within 1 week Referrals: [facility] [Provider Group] (The office will call you at home with an appointment date and time.) German Olmedo DO [Primary Care Provider] - 03/20/17 1:00 pm Prescriptions: Bumetanide [Bumex] 2 mg PO BID #120 tablet Carvedilol [Coreg] 25 mg PO BID #60 tablet Oxygen 4 l IN CONT #1 each Spironolactone [Aldactone] 25 mg PO DAILY #30 tablet
[2017-03-08 11:19] VITALS: BP 111/73
--- NOTE | 2017-03-08 12:28 | Discharge Summary ---
Date of Encounter: 03/08/17 Time of Encounter: 09:30 - Discharge Diagnosis (1) CHF exacerbation Priority: Primary Status: Acute Comments: Patient's shortness of breath improved on day of discharge. Ideally, we would have preferred to have Temp in the hospital for more diuresing however patient refused stating he was leaving on the day of discharge "one way or the other." We did qualify him for 4 L nasal cannula supplemental oxygenation. Patient stating he is aware that he has needed oxygen for quite some time but has not wanted it. He states that he will be compliant with wearing his oxygen while at home, he was noncompliant with wearing his oxygen while admitted. We will increase his furosemide dosage. Status post thoracentesis 2 during this admission with 600 mL removed each time from the right side. Aeration much improved on day of discharge. Follow-up closely outpatient next week with cardiology. Qualifiers: Congestive heart failure type: combined Qualified Code(s): I50.43 - Acute on chronic combined systolic (congestive) and diastolic (congestive) heart failure (2) Pleural effusion Priority: Secondary Status: Chronic Comments: Status post thoracentesis 2 during this admission. (3) Recurrent falls Priority: Primary Status: Acute Comments: OT and PT have recommended inpatient/swelling bed however the patient refused. He was amenable to home health and home health services were set up. Close outpatient follow-up. (4) Weakness Priority: Primary Status: Acute (5) Atrial fibrillation with rapid ventricular response Priority: Primary Status: Resolved (6) Atrial fibrillation Priority: Secondary Status: Chronic Comments: Rate controlled. Patient has a lengthy history of noncompliance, moving forward , we will defer anticoagulation to the residency clinic. His INR has not been checked on a routine basis. He was unable to afford Xarelto. Follow-up outpatient. Qualifiers: Atrial fibrillation type: chronic Qualified Code(s): I48.2 - Chronic atrial fibrillation (7) Anemia Priority: Secondary Status: Chronic Comments: Mild, stable,no signs of active bleeding. Qualifiers: Anemia type: unspecified type Qualified Code(s): D64.9 - Anemia, unspecified (8) Elevated troponin Priority: Secondary Status: Chronic Comments: In review of his chart, patient has had borderline elevated troponins since August 2016. He denied chest pain while admitted (9) Hypertension Priority: Secondary Status: Chronic Comments: Controlled. His home carvedilol and lisinopril have been continued and his furosemide dosage was increased. Recommend daily blood pressure checks at home , keeping a log, and following up outpatient. Qualifiers: Hypertension type: essential hypertension Qualified Code(s): I10 - Essential (primary) hypertension (10) DVT prophylaxis Priority: Primary Status: Acute Comments: He is on Coumadin however but was slightly subtherapeutic initially in the admission so IPC's were added. Therapeutic on day of discharge with INR of 2.2. Follow-up outpatient. (11) Abdominal aortic aneurysm Priority: Secondary Status: Chronic Qualifiers: Presence of rupture: without rupture Qualified Code(s): I71.4 - Abdominal aortic aneurysm, without rupture (12) PAD (peripheral artery disease) Priority: Secondary Status: Chronic (13) Tobacco use disorder Priority: Secondary Status: Chronic Comments: Declines counseling (14) Hypokalemia Priority: Primary Status: Resolved (15) Elevated bilirubin Priority: Primary Status: Acute Comments: Patient denied abdominal pain throughout this admission and tolerated a regular diet. Follow-up outpatient (16) Urinary tract infection Priority: Primary Status: Ruled-out Comments: Urine culture negative. Patient denied dysuria. No indication for antibiotics. Qualifiers: Urinary tract infection type: site unspecified Hematuria presence: without hematuria Qualified Code(s): N39.0 - Urinary tract infection, site not specified (17) Acute respiratory failure with hypoxia Priority: Primary Status: Acute Comments: Qualify for 4 L of nasal cannula continuously on the discharge. Patient was noncompliant with his oxygen through most of this admission but states he will be compliant once he gets home. (18) Code status needs review Priority: Primary Status: Acute Comments: Given that the patient was refusing most treatments and was not compliant with sodium or fluid restricted diets, I discussed his CODE STATUS with him but he wants to continue to be a full code. - Discharge Medications Prescriptions: Bumetanide [Bumex] 2 mg PO BID #120 tablet Carvedilol [Coreg] 25 mg PO BID #60 tablet Oxygen 4 l IN CONT #1 each Spironolactone [Aldactone] 25 mg PO DAILY #30 tablet Home Medications: Aspirin [Lo-Dose Aspirin EC] 81 mg PO DAILY 03/04/17 [History] Atorvastatin [Lipitor] 40 mg PO HS 03/04/17 [History] Lisinopril [Zestril] 5 mg PO DAILY 03/04/17 [History] Warfarin [Coumadin] 5 mg PO 1800 03/04/17 [History] Bumetanide [Bumex] 2 mg PO BID #120 tablet 03/08/17 [Rx] Carvedilol [Coreg] 25 mg PO BID #60 tablet 03/08/17 [Rx] Oxygen 4 l IN CONT #1 each 03/08/17 [Rx] Spironolactone [Aldactone] 25 mg PO DAILY #30 tablet 03/08/17 [Rx] Allergies/Adverse Reactions: Allergies No Known Allergies Allergy (Verified 03/04/17 11:58) Procedures/tests Complete & Pending: Procedures Performed prior 72 hours Category Date Time Status IR thoracentesis ultrasound [IR] Routine IR 03/07/17 Completed Date of admission: 03/04/17 11:45 Primary care physician: German Olmedo DO Consults: 03/04/17 17:32 Consult to Conciliator [CONS] Routine Reason for SW Consult: pt may need home health or ECF rehab placemnt. 03/05/17 08:33 Consult to Occupational Therapy [CONS] Routine Comment: Evaluate, develop and implement POC Reason for Consult: increased falls at home Consult to Physical Therapy [CONS] Routine Comment: Evaluate, develop and implement POC Reason for Consult: increased falls at home 03/06/17 07:58 Consult to Cardiology [CONS] Routine Comment: Consulting Provider: Zurdo Lehman Reason for Consult: afib rvr- increased carvedilol- remains 110's Time Notified: 07:58 Call Completed: Yes 03/06/17 15:21 Consult to Interventional Radiology [CONS] Routine Consulting Provider: Radiology Interventional Cols Reason for Consult: reoccurrence of PTX. pleural effusion s/p thoracentesis 03/04/17 with subsequent PTX. repeat thora vs pleur-x? Time Notified: 15:32 Call Completed: Yes Discharging clinician: Oneida Ramirez Anticipated date of discharge: 03/08/17 (refused inpatient/swing; sending with ) - Patient Status Disposition: Home Health Service Condition: Fair Functional capacity at discharge: independent ambulation Overall status at discharge: patient is progressing back to baseline - Discharge Instructions Follow Up With: German Olmedo DO [Primary Care Provider] - 03/20/17 1:[address] [facility] [Provider Group] Forms: ED Satisfaction Letter Additional Instructions: Follow up with your primary care provider as scheduled, follow-up with cardiology within 1 week - Diet and Activity Activity: increase activity as tolerated, wear oxygen at all times Diet: low fat, low cholesterol, low salt diet (Fluid restricted 1.5 L per day) Hospital course: Mr. Ayala is a 66 year old male with past medical history of ischemic cardiomyopathy, CHF, CAD, atrial fibrillation on Coumadin, hyperlipidemia, hypertension. Patient presented to the emergency department chief complaint generalized weakness 2 weeks. He had a mechanical all 4 days prior to presentation stating that his legs gave way. Patient stating his fall occurred while he was moving from his home. He denied lightheadedness, palpitations prior to the episode. He also had a fall 3 days prior to that fall at which time he hit his head on concrete in the temporal aspect of his right orbit. Since that time, he had redness and ecchymosis around his right eye. Patient also endorsing shortness of breath with exertion and endorses taking his furosemide at home without relief. Patient stating his chronic cough is normal and at his baseline upon presentation. Workup in the emergency department revealing chest x-ray compatible with CHF with pulmonary edema and moderate sized right-sided pleural effusion.. Patient was admitted to the hospitalist service for further evaluation and management. Initially upon his admission, patient was in A. fib RVR and his beta arya dosage was increased. Cardiology was brought on board. IR was brought on board who performed a thoracentesis and removed 600 mL of pleural fluid. This fluid was analyzed and was unremarkable. He was initially diuresed with 40 mg IV twice a day of Lasix but this was ineffective so he was changed to 80 mg IV twice a day and he remained fluid overloaded. After his first thoracentesis, he had a small pneumothorax and his pleural effusion reoccurred. He had a second thoracentesis again on the right side where another 600 mL were removed. Throughout this admission, patient required supplemental oxygenation but frequently removed it and continued noncompliance with medical treatment. He was also noted to not be following a low sodium and fluid restricted diets during this admission. We attempted education several times with the patient was not amenable to education or to changing his diet or fluid intake. He was admitted, observed, and diuresed over the course of 4 nights. On day of discharge, he remained with 1-2+ pitting edema bilaterally however his aeration had improved. He stated that he was leaving on that day whether he was discharged or not. He was seen and evaluated by occupational and physical therapy both of whom recommended and patient/swing bed. The patient refused but was amenable to home health so he was set up with home health services. Cardiology was present during this admission and after the increased dosage of IV Lasix was ineffective, Zaroxolyn was added to his regimen. Ideally, we would have preferred to have The patient until he was better diuresed however the patient refused. As the patient was noncompliant with his medical treatment and stated several times that we were "full of sugar at" he also stated that he "did not care" throughout this admission so we had a discussion regarding his CODE STATUS and his goals of care. He does want to continue to be a full code and states that he simply wants to eat and drink whatever he wants. He has been instructed to follow-up with cardiology and his residency clinic primary care next week for repeat check of his BMP as well as further discussion whether or not continuing Coumadin is indicated given his history of noncompliance and the fact that he has gone several months at a time without having his INR checked while on Coumadin. We will leave this discussion for his primary care team and outpatient follow-up. He was discharged home with home health services with close outpatient follow-up highly recommended within 1 week. ITS Impressions Head CT 03/04/17 09:32 IMPRESSION: No acute intracranial abnormality. Mild right periorbital swelling. Moderate cerebral atrophy advanced for age. Moderate to large amount of chronic ischemic white matter change appropriate for age. These changes have progressed since the prior study. D/ / Byron Anderson MD / Byron Anderson MD Interpreting Provider: Byron Anderson MD Orbit CT 03/04/17 09:32 IMPRESSION: No acute abnormality of the orbits. No evident fracture. D/ / Byron Anderson MD / Byron Anderson MD Interpreting Provider: Byron Anderson MD Chest X-Ray 03/04/17 10:55 IMPRESSION: Cardiomegaly with pulmonary edema compatible with CHF. Moderate size right pleural effusion with right basilar atelectasis/infiltrate. D/ / Bladimir Ohara MD / Bladimir Ohara MD Interpreting Provider: Bladimir Ohara MD Thoracentesis Ultrasound 03/04/17 11:34 IMPRESSION: Successful ultrasound guided thoracentesis. D/ / Rolando Freeman MD / Rolando Freeman MD Interpreting Provider: Rolando Freeman MD Chest X-Ray 03/04/17 14:51 IMPRESSION: 1. Decrease in size of right pleural effusion status post right thoracentesis. No pneumothorax. 2. Right basilar atelectasis. 3. Cardiomegaly and pulmonary edema. D/ / Bladimir Ohara MD / Bladimir Ohara MD Interpreting Provider: Bladimir Ohara MD Chest X-Ray 03/04/17 23:42 IMPRESSION: Interval development of a small right pneumothorax following a thoracentesis. Recommend short-term follow-up chest radiograph in 1-2 hours to ensure stability. Critical results were called by Dr. Law Liz MD to Jose Ponce RN, on 03/05/2017 at 00:11. D/ / Law Liz MD / Law Liz MD Interpreting Provider: Law Liz MD Chest X-Ray 03/05/17 08:00 IMPRESSION: Stable pulmonary vascular congestion compatible with mild CHF. Moderate-sized right pleural effusion which has slightly increased. Trace right pneumothorax which is improved. D/ / 03/05/2017 08:59:26 Edwar Galaviz MD / vicente Interpreting Provider: Edwar Galaviz MD Chest X-Ray 03/06/17 07:56 IMPRESSION: 1. Right hydropneumothorax with increase in the pleural effusion. 2. Cardiomegaly with vascular congestion. D/ / Sonny Arechiga MD / Sonny Arechiga MD Interpreting Provider: Sonny Arechiga MD Thoracentesis Ultrasound 03/07/17 00:00 IMPRESSION: Successful ultrasound guided thoracentesis. D/ / Chato James MD / Chato James MD Interpreting Provider: Chato James MD Chest X-Ray 03/07/17 09:21 IMPRESSION: 1. Status post right thoracentesis with improved effusion and persistent atelectasis. 2. Questionable trace right lateral pneumothorax. D/ / 03/07/2017 11:02:03 Bello Epperson MD / onofre Interpreting Provider: Bello Epperson MD Chest X-Ray 03/07/17 13:20 IMPRESSION: 1. Small right pleural effusion which is in part nondependent. 2. No pneumothorax identified. 3. Persistent pulmonary vascular congestion. D/ / Eduin Adorno MD / Eduin Adorno MD Interpreting Provider: Eduin Adorno MD Echocardiogram impressions: Technically challenging study was suboptimal windows. Patient was in A. fib with RVR during the study. Difficult to quantify LV EF. Recommend repeat study with Definity when heart rate normalizes. Normal RV size. Function not well evaluated. Mild MR. Mild TR. No pulmonary hypertension by TR gradient, 23 mmHg. - Time Spent with Patient Total time spent providing and/or coordinating discharge services: - Constitutional Vitals: Temp Pulse Resp BP Pulse Ox 97.9 F 68 16 111/73 90 03/08/17 11:16 03/08/17 11:16 03/08/17 11:16 03/08/17 11:16 03/08/17 11:55 General appearance: Present: cooperative, A&O X 3, no acute distress, answers questions appropriately. Absent: pleasant - Head Head exam: Present: atraumatic, normocephalic - Eye Eye exam: Present: PERRL, conjuntiva pink, sclera anicteric Pupils: Present: PERRL - Neck Neck exam general surgery: Present: supple, trachea midline. Absent: lymphadenopathy - Respiratory Respiratory exam: Present: decreased breath sounds (mild- good aeration), CTAB. Absent: accessory muscle use, rales, respiratory distress, rhonchi, wheezes - Cardiovascular Cardiovascular exam: Present: irregular rhythm, RRR, +S1, +S2. Absent: diastolic murmur, gallop, rubs, systolic murmur - GI/Abdominal GI/Abdominal exam: Present: distended (ascites), normal bowel sounds, soft, no peritoneal signs. Absent: tenderness - Extremities Exam Extremities exam: Present: pedal edema (1-2+ pitting bilaterally- improved), warm, radial pulses palpable and symetrical. Absent: calf tenderness, cyanotic - Neurological Exam Neurological exam: Present: alert, CN II-XII intact, normal gait, oriented X3, no focal deficits, strengths equal and symetr throughout. Absent: pronater drift, facial droop, speech deficit - Skin Skin exam: Present: dry, intact, normal color, warm - Expanded Skin Exam Type of lesion: Present: abrasion (ecchymosis around right eye) Distribution of rash: Present: face Description of rash: Present: erythematous
--- NOTE | 2017-03-08 13:10 | Physician Discharge Referral ---
Home Health/Hosp Referral Info Transfer to: Home Health Attending Provider: Virgil Ramirez CNP Provider in Charge Post Discharge: PCP - Diagnosis (1) CHF exacerbation Priority: Primary Status: Acute (2) Pleural effusion Priority: Secondary Status: Chronic (3) Recurrent falls Priority: Primary Status: Acute (4) Weakness Priority: Primary Status: Acute (5) Atrial fibrillation with rapid ventricular response Priority: Primary Status: Resolved (6) Atrial fibrillation Priority: Secondary Status: Chronic (7) Anemia Priority: Secondary Status: Chronic (8) Elevated troponin Priority: Secondary Status: Chronic (9) Hypertension Priority: Secondary Status: Chronic (10) DVT prophylaxis Priority: Primary Status: Acute (11) Abdominal aortic aneurysm Priority: Secondary Status: Chronic (12) PAD (peripheral artery disease) Priority: Secondary Status: Chronic (13) Tobacco use disorder Priority: Secondary Status: Chronic (14) Hypokalemia Priority: Primary Status: Resolved (15) Elevated bilirubin Priority: Primary Status: Acute (16) Urinary tract infection Priority: Primary Status: Ruled-out (17) Acute respiratory failure with hypoxia Priority: Primary Status: Acute (18) Code status needs review Priority: Primary Status: Acute - Respiratory Orders Oxygen / L per min (4) Smoking Cessation: Smoking cessation has been advised. For more information, call the [place] Tobacco Quit Line at 1-406-JYEP-NOW. - Diet/Nutrition Diet/Nutrition Orders: No Added Salt (PATRICA) (fluid restriction 1.5L per day), No Concentrated Sweets - Activity Activity Orders: Ambulate - Services Needed Following services are medically necessary services: Nursing, Physical Therapy, Occupational Therapy - Transfer Medications Prescriptions: Bumetanide [Bumex] 2 mg PO BID #120 tablet Carvedilol [Coreg] 25 mg PO BID #60 tablet Oxygen 4 l IN CONT #1 each Spironolactone [Aldactone] 25 mg PO DAILY #30 tablet Home Medications: Aspirin [Lo-Dose Aspirin EC] 81 mg PO DAILY 03/04/17 [History] Atorvastatin [Lipitor] 40 mg PO HS 03/04/17 [History] Lisinopril [Zestril] 5 mg PO DAILY 03/04/17 [History] Warfarin [Coumadin] 5 mg PO 1800 03/04/17 [History] Bumetanide [Bumex] 2 mg PO BID #120 tablet 03/08/17 [Rx] Carvedilol [Coreg] 25 mg PO BID #60 tablet 03/08/17 [Rx] Oxygen 4 l IN CONT #1 each 03/08/17 [Rx] Spironolactone [Aldactone] 25 mg PO DAILY #30 tablet 03/08/17 [Rx] Allergies/Adverse Reactions: Allergies No Known Allergies Allergy (Verified 03/04/17 11:58) Certification: Further, I certify that my clinical findings support that this patient is homebound (i.e. absences from home require considerable and taxing effort and are for medical reasons or cheondoism services or infrequently or short duration when for other reasons) because: Homebound Reason: Leaving home requires considerable and taxing effort due to condition, Severity of cardiac or pulmonary status limits activity tolerance Attestation: My signature below is to certify that this patient is under my care and that I, or nurse practitioner, or a physician's pier master assistant working with me, has a face-to -face encounter with this patient.
[2017-03-08] MEDS ORDERED: *HR* Warfarin 2.5 MG TABLET PO ONE (18:00)
== END 2017-03-08 15:50 | disposition home health service (06) | DRG 291 ==
LOC: 3BNU 09:20 → EMEROO 09:20 → SUATTDRO 11:45 → 3BNU 12:23
PROVIDERS: ADMIT Internal Medicine; ATTEND Nurse Practitioner Family

== ENCOUNTER 2018-07-08 09:48 | Inpatient (IN) ==
[2018-07-08] MEDS ORDERED: Isovue-370 500 ML INFUS..BTL IV ONE (10:04)
[2018-07-08 10:15] LABS: Basophils # 0.1 K/mcL (0.0-0.2); Basophils % 0.8 %; Eosinophils # 0.3 K/mcL (0.0-0.6); Eosinophils % 4.3 %; Hematocrit 35.2 % (37.5-50.1); Hemoglobin 11.5 g/dL (12.9-16.9); Immature Granulocytes % 0.4 % (0-4); Lymphocytes # 0.6 K/mcL (0.6-4.6); Lymphocytes % 7.3 %; Mean Corpuscular HGB Conc 32.7 g/dL (31.6-35.5); Mean Corpuscular Hemoglobin 35.6 pg (28.0-33.3); Mean Platelet Volume 8.7 fL (9.4-12.4); Monocytes # 1.8 K/mcL (0.0-1.3); Neutrophils # 5.2 K/mcL (1.6-8.9); Nucleated Red Blood Cells 0.3 /100 WBC (0); Platelet Count 263 K/mcL (140-400); Red Blood Count 3.23 M/mcL (4.19-5.50); Segmented Neutrophils % 65.2 %
[2018-07-08 10:41] LABS: Alanine Aminotransferase 6 Units/L (7-52); Albumin 3.1 g/dL (3.5-5.7); Albumin/Globulin Ratio 0.9 (1.1-2.2); Alkaline Phosphatase 138 Units/L (34-104); Aspartate Amino Transferase 14 Units/L (13-39); BUN/Creatinine Ratio 13 (6-26); Bilirubin,Indirect 0.8 mg/dL (0.0-1.2); Bilirubin,Total 1.8 mg/dL (0.3-1.0); Blood Urea Nitrogen 11 mg/dL (8-23); Calcium 8.4 mg/dL (8.6-10.3); Carbon Dioxide 30 mEq/L (23-29); Chloride 100 mEq/L (98-107); Globulin 3.5 g/dL (2.4-3.5); Glucose 85 mg/dL (70-105); Osmolality,Calculated 277 (280-300); Potassium 4.1 mEq/L (3.5-5.1); Sodium 134 mEq/L (136-145); Total Protein 6.6 g/dL (6.4-8.9); Troponin I < 0.03 ng/mL (< 0.04); eGFR For Non-African Americans > 60 (> 60)
[2018-07-08 10:49] LABS: Platelet Estimate Normal (Normal)
[2018-07-08 10:56] LABS: Prothrombin Time 22.3 Seconds (9.4-12.1)
[2018-07-08] MEDS ORDERED: Furosemide 40 MG/4 ML VIAL IVP ONE (11:12)
--- NOTE | 2018-07-08 13:02 | Emergency Department Note ---
START Narrative - START START: 45 minutes of 12 hours EKG G shows her to 67 bpm, normal axis, normal intervals , nonspecific abnormal ECG.
--- NOTE | 2018-07-08 13:05 | Electrocardiograph Report ---
[facility] Test Date: 2018-07-08 Pat Name: Goran Ayala Department: [id number] Room: Gender: M Home Health Provider: : 1950 Requested By: Truong Sparks Order Number: [id number] Reading MD: Goran Mccall Measurements Intervals [place] Rate: 67 P: -7 OK: 112 QRS: 19 QRSD: 96 T: 141 QT: 403 QTc: 426 Interpretive Statements Sinus rhythm Atrial premature complexes Borderline short OK interval Abnormal T, consider ischemia, lateral leads Electronically Signed On 07-08-2018 13:03:38 EDT by Goran Mccall
[2018-07-08] MEDS ORDERED: Naloxone 0.4 MG/ML INJ IVP PRN (14:10)
[2018-07-08] MEDS ORDERED: Levofloxacin 750 MG/150 ML 750 MG/150 ML BAG IVPB SCH (15:00)
--- NOTE | 2018-07-08 15:04 | Internal Med History&Physical ---
Date of Encounter: 07/08/18 Time of Encounter: 15:02 Internal Medicine - H&P: HPI Chief complaint: shortness of breath. increased abdominal girth. History of present illness: Mr. Ayala is a 68 year old male past medical history significant for lymphoma status post chemo and radiation 2009,, coronary artery disease, HLD, hypertension A.fib on warfarin. Patient presented to the emergency room due to abdominal distention associated with shortness of breath. Patient reports that for about a month or so he has been experiencing progressively worsening increasing his abdominal girth, associated with worsening exertional dyspnea and swelling of the lower extremities. He reports that for the past couple of days, because of significant increase in his abdominal girth, he was not able to walk much, and was short of breath with minimal exertion. For which he decided to come to the emergency room today. The patient also reports intermittent diarrhea for about a month, which she describes as watery stool of 3-4 bowel movements a day. Denies fever, chills, refers abdominal pain which he believes is due to the abdominal distention. Denies nausea or vomiting. Denies chest pain, reports chronic nonproductive cough. Past Med Surg Social Fam HX - Past Medical History Medical history: cancer, cardiomyopathy, CHF, coronary artery disease, hyperlipidemia, hypertension Psychiatric history: no psych history - Past Surgical History Surgical History: no surgical history - Social History Smoking Status: Current every day smoker Smokeless Tobacco Status: No Alcohol use: occasionally Drug use: none - Family History Mother Adopted: Yes Living Status: Still Living Internal Medicine - H&P: Meds Aspirin [Lo-Dose Aspirin EC] 81 mg PO DAILY 03/04/17 [History] Atorvastatin [Lipitor] 40 mg PO HS 03/04/17 [History] Warfarin [Coumadin] 5 mg PO 1800 03/04/17 [History] Bumetanide [Bumex] 2 mg PO BID #120 tablet 03/08/17 [Rx] Oxygen 4 l IN CONT #1 each 03/08/17 [Rx] Carvedilol 12.5 mg PO BIDWM 07/08/18 [History] Furosemide [Lasix] 40 mg PO QPM 07/08/18 [History] Furosemide [Lasix] 60 mg PO QAM 07/08/18 [History] Multivitamin/Iron/Folic Acid [Centrum Complete Multivit Tab] 1 each PO DAILY [History] Nitroglycerin [Nitrostat] 0.4 mg SL PRN PRN 07/08/18 [History] 3 Allergy/AdvReac Type Severity Reaction Status Date / Time No Known Allergies Allergy Verified 03/04/17 11:58 All Systems PM: A 10-system review of systems was performed and is negative for pertinent findings except as documented above in the HPI. - Constitutional Constitutional: fatigue, weakness, weight gain, no anorexia, no chills, no fever (s), no malaise - EENT Eyes: no change in vision, no irritation Nose, mouth and throat: no bleeding gums, no dry mouth, no dysphagia, no nasal congestion, no nasal discharge - Cardiovascular Cardiovascular ROS IM: dyspnea on exertion, no chest pain, no diaphoresis, no irregular heart rhythm, no lightheadedness, no palpitations, no paroxysmal nocturnal dyspnea - Respiratory Respiratory: cough (Nonproductive), no hemoptysis, no wheezing, no pain on inspiration - Gastrointestinal Gastrointestinal: abdominal pain, change in bowel habits, diarrhea, no coffee ground emesis, no constipation, no dyspepsia, no excessive flatus, no nausea, no vomiting - Genitourinary Genitourinary ROS male: no difficulty urinating, no dysuria, no nocturia - Musculoskeletal Musculoskeletal ROS IM: no back pain, no neck pain - Integumentary Integumentary IM: no erythema - Neurological Neurological ROS: no abnormal hearing, no dizziness, no tingling, no vertigo, no weakness - Psychiatric Psychiatric: no anhedonia, no change in appetite, no confusion, no depression, no irritability, no suicidal ideation - Endocrine Endocrine IM: no cold intolerance, no fatigue - Allergic/Immunologic Allergic/Immunologic: no uticaria, no wheezing - Constitutional Vitals: Temp Pulse Resp BP Pulse Ox 97.9 F 58 16 122/73 100 07/08/18 10:00 07/08/18 12:37 07/08/18 12:37 07/08/18 12:37 07/08/18 12:37 Exam: General: Alert and oriented 4. In mild distress due to itching. Skin: Generalized excoriation, HEENT: EOM, pupils equal, round and reactive. No jaundice Cardiovascular:RRR, Normal S1 & S2, no rubs, murmurs or gallops. JVD about 6cm. Lungs:Normal breath sounds, no wheezes or crackles. Abdomen: Soft, distended, with shifting waves, non-tender, no rigidity. Hyperactive bowel sounds in all quadrants Extremities: 2+ pitting edema in the lower extremity bilaterally, 1+ pulse bilaterally in the lower extremity, cold lower extremities. Neurological:Normal cognition and motor skills. est of the physical exam is non contributory Internal Med - H&P Results - Labs CBC & Chem 7: 07/08/18 10:04 07/08/18 10:04 - Assessment and plan (1) Ascites Current Visit: Yes Status: Acute Assessment and plan: Most likely Secondary to congestive heart failure. Ruled out hepatitis Plan Hepatitis panel IR consulted for paracentesis. 2 g sodium diet Fluid restriction 1.5 L a day Started on furosemide 40 mg IV twice a day Spironolactone 50 mg daily Follow-up ascites fluid cell count and cytology Strict intake and output Qualifiers: Ascites type: other type Qualified Code(s): R18.8 - Other ascites (2) Enteritis Current Visit: Yes Status: Acute Assessment and plan: Patient reports diarrhea for the past 4 days. No fever, chills. Abdominal and pelvis CT: Wall thickening of the distal ileum extending to the terminal ileum. Findings are nonspecific but can be seen in the setting of enteritis or inflammatory bowel disease. No evidence of pneumatosis. Plan Patient is started empirically on antibiotic coverage. TSH, reflex to T4. (3) CHF (congestive heart failure) Current Visit: No Status: Acute Assessment and plan: Acutely exacerbated. Patient presented with shortness of breath and abdominal ascites which is most likely secondary to decompensated congestive heart failure Plan Furosemide 40 mg twice a day Spironolactone 50 mg by mouth daily will start the patient on low-dose beta arya Start low-dose ACEs Water restriction to 1.5 L a day 2 g sodium diet Daily weight Strict intake and output Qualifiers: Qualified Code(s): I50.43 - Acute on chronic combined systolic (congestive) and diastolic (congestive) heart failure (4) Abdominal aortic aneurysm Current Visit: Yes Status: Acute Assessment and plan: Abdominal pelvic CT: Aorta and its branches demonstrate severe atherosclerosis with aneurysmal dilatation of the infrarenal abdominal aorta, measuring up to 4.3 x 4.1 cm. Just proximal to the bifurcation, no significant contrast opacification of the aortic lumen is identified Plan Vascular surgery consulted will follow their recommendations Patient educated about the importance of smoking cessation, patient states that he is not interested in quitting smoking Qualifiers: Presence of rupture: without rupture Qualified Code(s): I71.4 - Abdominal aortic aneurysm, without rupture (5) Atrial fibrillation Current Visit: No Status: Chronic Assessment and plan: Rate controlled Plan Continue carvedilol Continue warfarin 5 mg by mouth daily INR as per pharmacy protocol Qualifiers: Atrial fibrillation type: chronic Qualified Code(s): I48.2 - Chronic atrial fibrillation (6) Hypertension Current Visit: No Status: Chronic Assessment and plan: Blood pressure well controlled. Patient on multiple antihypertensive medication. Qualifiers: Hypertension type: essential hypertension Qualified Code(s): I10 - Essential (primary) hypertension (7) Pleural effusion Current Visit: No Status: Chronic Assessment and plan: CTA chest: Loculated right pleural effusion with adjacent right base opacity. Probable chronic lung changes with superimposed pulmonary edema. Possible pneumonia versus pulmonary edema. Plan: urine for a typical organism patient started on empiric antibiotic coverage. (8) DVT prophylaxis Current Visit: Yes Status: Acute Assessment and plan: Patient on warfarin. for A. fib. with High CHADSVASC score. - Time Spent With Patient Total time spent is greater than 50% in coordination of care (as documented) at patient's floor/unit and/or counseling patient: Greater than 35 minutes
[2018-07-08] MEDS: metroNIDAZOLE 500 MG TABLET PO SCH ×2 (15:35→20:10)
[2018-07-08 15:47] LABS: Bilirubin,Urine Negative (Negative); Blood,Urine Negative (Negative); Clarity,Urine Clear (Clear); Color,Urine Yellow (Yellow); Glucose,Urine (UA) Normal (Normal); Ketones,Urine Negative (Negative); Leukocyte Esterase,Urine Negative (Negative); Nitrite,Urine Negative (Negative); Protein,Urine Negative (Neg-Trace); Specific Gravity,Urine 1.013 (1.010-1.025)
--- NOTE | 2018-07-08 16:36 | Emergency Department Note ---
Disposition Clinical Impression: Ascites Qualifiers: Ascites type: other type Qualified Code(s): R18.8 - Other ascites Disposition: Admitted As Inpatient Condition: Undetermined General Adult HPI - General Chief complaint: ED Shortness of Breath/Dyspnea Stated complaint: ABD Fluid Retention,HX CHF Time Seen by Provider: 07/08/18 10:02 Nursing Notes Reviewed: Yes Vital Signs Reviewed: Yes - History of Present Illness HPI Narrative: 68-year-old male who presents with concern for ascites. He does not a history of having congestive heart failure, ascites, alcohol abuse. He presents today with concern for increasing abdominal girth, dyspnea. He was taken straight back from triage with findings of hypoxia. His saturations were in the 70s. His placed on supplemental options on high flow and had significant increase in SPO2. He denies fever, chills, cough, night sweats. He has no sick or ill contacts. He does provide a history of having paracentesis completed in [place] over the past year. Exam shows a morbidly obese abdomen with fluid wave and massive ascites. The patient is pale, pursed lip breathing, cyanotic General: Acute hypoxic respiratory failure HEENT: Pupils equal and reactive to light, extraoccular muscle movement is normal, TMS are clear bilaterally. Heart: Regular rate Lungs: Rales bilaterally ABD: Distended with fluid with Extremities: No cyanosis, clubbing or edema Neuro: CN 2-12 in tact, no focal deficit. strength 5/5. A 12 point review of systems is completed and is negative unless otherwise discussed in history of present illness pertinent positives were discussed. Medical decision making Patient has findings of massive ascites, atrial fibrillation, on Coumadin, congestive heart failure, dyspnea, hypoxic respiratory failure. We will start diuresis, consult IR for paracentesis, heart rate is currently controlled. Patient will need admission for further management heart failure medical maximization for underlying cirrhotic abdomen with massive ascites. Pain Scale: 0 - Related Data Home Medications Medication Instructions Recorded Confirmed Aspirin [Lo-Dose Aspirin EC] 81 mg PO DAILY 03/04/17 07/08/18 Atorvastatin [Lipitor] 40 mg PO HS 03/04/17 07/08/18 Warfarin [Coumadin] 5 mg PO 1800 03/04/17 07/08/18 Carvedilol 12.5 mg PO BIDWM 07/08/18 07/08/18 Furosemide [Lasix] 40 mg PO QPM 07/08/18 07/08/18 Furosemide [Lasix] 60 mg PO QAM 07/08/18 07/08/18 Multivitamin/Iron/Folic Acid 1 each PO DAILY 07/08/18 07/08/18 [Centrum Complete Multivit Tab] Nitroglycerin [Nitrostat] 0.4 mg SL PRN PRN 07/08/18 07/08/18 Previous Rx's Medication Instructions Recorded Bumetanide [Bumex] 2 mg PO BID #120 tablet 03/08/17 Oxygen 4 l IN CONT #1 each 03/08/17 Allergies Allergy/AdvReac Type Severity Reaction Status Date / Time No Known Allergies Allergy Verified 03/04/17 11:58 All systems ED: reviewed and negative except as stated. Past Medical History - Past Medical History Medical history: Reports: cancer, cardiomyopathy, CHF, coronary artery disease, hyperlipidemia, hypertension Surgical history: Reports: no surgical history Psychiatric history: Reports: no psych history - Social History Smoking Status: Current every day smoker Smokeless Tobacco Status: No Alcohol use: Reports: occasionally Drug use: Reports: none Physical Exam - General General appearance: alert, in distress Course Vital Signs Temperature 97.9 F 07/08/18 10:00 Pulse Rate 73 07/08/18 10:00 Respiratory Rate 16 07/08/18 10:00 Blood Pressure 150/74 07/08/18 10:00 O2 Sat by Pulse Oximetry 88 07/08/18 10:00 Temperature 97.5 F L 07/08/18 15:36 Pulse Rate 65 07/08/18 15:36 Respiratory Rate 19 07/08/18 15:36 Blood Pressure 150/65 07/08/18 15:36 O2 Sat by Pulse Oximetry 97 07/08/18 15:36 Oxygen Delivery Oxygen Delivery Oximizer Medical Decision Making - Lab Data Result diagrams: 07/08/18 10:04 07/08/18 10:04 Lab Results 07/08/18 07/08/18 07/08/18 Range/Units 10:04 10:04 10:04 WBC 8.0 (4.3-11.1) K/mcL RBC 3.23 L (4.19-5.50) M/mcL Hgb 11.5 L (12.9-16.9) g/dL Hct 35.2 L (37.5-50.1) % MCV 109.0 H (83.0-100.0) fL MCH 35.6 H (28.0-33.3) pg MCHC 32.7 (31.6-35.5) g/dL RDW 22.0 H (11.5-14.5) % Plt Count 263 (140-400) K/mcL MPV 8.7 L (9.4-12.4) fL Immature Gran % 0.4 (0-4) % Seg Neutrophils % 65.2 % Lymphocytes % 7.3 % Monocytes % 22.0 % Eosinophils % 4.3 % Basophils % 0.8 % Neutrophils # 5.2 (1.6-8.9) K/mcL Lymphocytes # 0.6 (0.6-4.6) K/mcL Monocytes # 1.8 H (0.0-1.3) K/mcL Eosinophils # 0.3 (0.0-0.6) K/mcL Basophils # 0.1 (0.0-0.2) K/mcL Nucleated RBCs/100 WBC 0.3 H (0) /100 WBC Platelet Estimate Normal (Normal) PT (9.4-12.1) Seconds INR Sodium 134 L (136-145) mEq/L Potassium 4.1 (3.5-5.1) mEq/L Chloride 100 (98-107) mEq/L Carbon Dioxide 30 H (23-29) mEq/L BUN 11 (8-23) mg/dL Creatinine 0.82 (0.70-1.30) mg/dL Est GFR ( Amer) > 60 (> 60) Est GFR (Non-Af Amer) > 60 (> 60) BUN/Creatinine Ratio 13 (6-26) Glucose 85 (70-105) mg/dL Calculated Osmolality 277 L (280-300) Lactic Acid 1.7 (0.5-2.2) mmol/L Calcium 8.4 L (8.6-10.3) mg/dL Total Bilirubin 1.8 H (0.3-1.0) mg/dL Direct Bilirubin 1.0 H (0.0-0.2) mg/dL Indirect Bilirubin 0.8 (0.0-1.2) mg/dL AST 14 (13-39) Units/L ALT 6 L (7-52) Units/L Alkaline Phosphatase 138 H (34-104) Units/L Troponin I < 0.03 (< 0.04) ng/mL B-Natriuretic Peptide (Less than 100) pg/mL Serum Total Protein 6.6 (6.4-8.9) g/dL Albumin 3.1 L (3.5-5.7) g/dL Globulin 3.5 (2.4-3.5) g/dL Albumin/Globulin Ratio 0.9 L (1.1-2.2) Blood Type Antibody Screen 07/08/18 07/08/18 07/08/18 Range/Units 10:04 10:04 10:30 WBC (4.3-11.1) K/mcL RBC (4.19-5.50) M/mcL Hgb (12.9-16.9) g/dL Hct (37.5-50.1) % MCV (83.0-100.0) fL MCH (28.0-33.3) pg MCHC (31.6-35.5) g/dL RDW (11.5-14.5) % Plt Count (140-400) K/mcL MPV (9.4-12.4) fL Immature Gran % (0-4) % Seg Neutrophils % % Lymphocytes % % Monocytes % % Eosinophils % % Basophils % % Neutrophils # (1.6-8.9) K/mcL Lymphocytes # (0.6-4.6) K/mcL Monocytes # (0.0-1.3) K/mcL Eosinophils # (0.0-0.6) K/mcL Basophils # (0.0-0.2) K/mcL Nucleated RBCs/100 WBC (0) /100 WBC Platelet Estimate (Normal) PT 22.3 H (9.4-12.1) Seconds INR 2.0 Sodium (136-145) mEq/L Potassium (3.5-5.1) mEq/L Chloride (98-107) mEq/L Carbon Dioxide (23-29) mEq/L BUN (8-23) mg/dL Creatinine (0.70-1.30) mg/dL Est GFR ( Amer) (> 60) Est GFR (Non-Af Amer) (> 60) BUN/Creatinine Ratio (6-26) Glucose (70-105) mg/dL Calculated Osmolality (280-300) Lactic Acid (0.5-2.2) mmol/L Calcium (8.6-10.3) mg/dL Total Bilirubin (0.3-1.0) mg/dL Direct Bilirubin (0.0-0.2) mg/dL Indirect Bilirubin (0.0-1.2) mg/dL AST (13-39) Units/L ALT (7-52) Units/L Alkaline Phosphatase (34-104) Units/L Troponin I (< 0.04) ng/mL B-Natriuretic Peptide 1010 H (Less than 100) pg/mL Serum Total Protein (6.4-8.9) g/dL Albumin (3.5-5.7) g/dL Globulin (2.4-3.5) g/dL Albumin/Globulin Ratio (1.1-2.2) Blood Type O POSITIVE Antibody Screen NEGATIVE
[2018-07-08 16:46] LABS: Hepatitis B Core IgM Nonreactive (Nonreactive); Hepatitis C Virus Antibody Nonreactive (Nonreactive)
[2018-07-08 16:47] LABS: Hepatitis A Antibody IgM Nonreactive (Nonreactive)
[2018-07-08] MEDS ORDERED: Furosemide 40 MG/4 ML VIAL IVP SCH ×2 (17:00→21:00)
[2018-07-08] MEDS ORDERED: *HR* Warfarin 2.5 MG TABLET PO ONE (18:00)
[2018-07-08] MEDS ORDERED: Warfarin perPT PO SCH (18:00)
[2018-07-08] MEDS ORDERED: Warfarin perPT PO PRN (18:00)
[2018-07-09 05:20] LABS: Basophils # 0.1 K/mcL (0.0-0.2); Eosinophils # 0.4 K/mcL (0.0-0.6); Hematocrit 28.8 % (37.5-50.1); Mean Corpuscular HGB Conc 32.6 g/dL (31.6-35.5); Mean Corpuscular Hemoglobin 34.2 pg (28.0-33.3); Mean Corpuscular Volume 104.7 fL (83.0-100.0); Mean Platelet Volume 9.3 fL (9.4-12.4); Neutrophils # 3.5 K/mcL (1.6-8.9); Nucleated Red Blood Cells 0.3 /100 WBC (0); Platelet Count 217 K/mcL (140-400); Red Blood Count 2.75 M/mcL (4.19-5.50); Red Cell Distribution Width 21.2 % (11.5-14.5)
[2018-07-09 05:33] LABS: INR 2.1; Prothrombin Time 23.9 Seconds (9.4-12.1)
[2018-07-09 05:47] LABS: Hemoglobin 9.4 g/dL (12.9-16.9)
[2018-07-09 05:52] LABS: Thyroid Stimulating Hormone 6.71 mcIU/mL (0.340-5.600)
[2018-07-09 06:01] LABS: BUN/Creatinine Ratio 14 (6-26); Blood Urea Nitrogen 11 mg/dL (8-23); Calcium 7.7 mg/dL (8.6-10.3); Carbon Dioxide 29 mEq/L (23-29); Chloride 100 mEq/L (98-107); Glucose 78 mg/dL (70-105); Magnesium 1.6 mg/dL (1.6-2.6); Osmolality,Calculated 274 (280-300); Phosphorous 3.6 mg/dL (2.7-4.5); Potassium 3.7 mEq/L (3.5-5.1); Sodium 133 mEq/L (136-145); eGFR For Non-African Americans > 60 (> 60)
[2018-07-09 06:10] LABS: Lymphocytes # 0.7 K/mcL (0.6-4.6); Monocytes # 1.3 K/mcL (0.0-1.3)
[2018-07-09 06:11] LABS: Platelet Estimate Normal (Normal)
[2018-07-09] MEDS: levoFLOXacin 750 MG TABLET PO SCH (08:06)
[2018-07-09] MEDS: metroNIDAZOLE 500 MG TABLET PO SCH ×3 (08:08→20:03)
[2018-07-09] MEDS: Furosemide 20 MG/2 ML VIAL IVP SCH ×2 (08:08→17:06)
[2018-07-09] MEDS ORDERED: Furosemide 20 MG/2 ML VIAL IVP SCH (09:00)
[2018-07-09] MEDS ORDERED: Levofloxacin 750 MG/150 ML 750 MG/150 ML BAG IVPB SCH (09:00)
--- NOTE | 2018-07-09 17:50 | Internal Med Progress Note ---
Hospitalist Progress Note - Encounter Date of Encounter: 07/09/18 Time of Encounter: 17:48 - Subjective Interval History: Patient evaluated at bedside, reports feeling better. He states "after the fluid was removed, my appetite is back", denies shortness of breath, Chest pain , nausea or vomiting. - Exam Vitals: Temp Pulse Resp BP Pulse Ox 98.3 F 69 17 102/54 95 07/09/18 16:08 07/09/18 16:08 07/09/18 16:08 07/09/18 17:04 07/09/18 07:11 Exam: eneral: Alert and oriented 4. No acute distress. Skin: Generalized excoriation, Cardiovascular: RRR, Normal S1 & S2, no rubs, murmurs or gallops. JVD about 6cm. Lungs: Decreased breath sounds in the left lower, no wheezes or crackles. Abdomen: Soft, distended, with shifting waves, non-tender, no rigidity. NABS in all 4 quadrants. Extremities: 2+ pitting edema in the lower extremity bilaterally, 1+ pulse bilaterally in the lower extremity, cold lower extremities. Neurological: CN II-XII intact est of the physical exam is non contributory - Assessment and Plan (1) CHF (congestive heart failure) Current Visit: No Status: Acute Assessment and Plan: Decreased breath sounds in the left lower lobe. Plan On furosemide 20 mg IV twice a day, and spironolactone 25 mg daily Continue 2 g sodium diet A strict intake and output Daily weight Lisinopril discontinued due to low blood pressure. Continue low-dose carvedilol with holding parameters for SBP <110 or HR <55 (2) Ascites Current Visit: Yes Status: Acute Assessment and Plan: S/P paracentesis Plan Furosemide decreased to 20 mg IV twice a day, and his spironolactone to 25 mg daily due to hypotension. Furosemide, spironolactone holding parameters for SBP <110 (3) Enteritis Current Visit: Yes Status: Acute Assessment and Plan: Denies abdominal pain, no diarrhea. Plan Continue IV antibiotics (4) Abdominal aortic aneurysm Current Visit: Yes Status: Acute Assessment and Plan: Vascular surgeon consulted. Pending recommendations. (5) Atrial fibrillation Current Visit: No Status: Chronic Assessment and Plan: Rate controlled, on a low-dose beta arya. Continue anticoagulation with warfarin as per pharmacy protocol. (6) Hypertension Current Visit: No Status: Chronic Assessment and Plan: Hypotensive in the low 90s after paracentesis. Plan Antihypertensive medication with holding parameter for SBP <110 (7) Pleural effusion Current Visit: No Status: Chronic Assessment and Plan: Decreased breath sounds in the left lower lobe. Plan Patient being covered empirically with IV antibiotics Continue Lasix (8) DVT prophylaxis Current Visit: Yes Status: Acute Assessment and Plan: Anticoagulated with warfarin. Due to A. fib. - Time Spent with Patient Total time spent is greater than 50% in coordination of care (as documented) at patient's floor/unit and/or counseling patient: Greater than 35 minutes Plan of Care Discussed with: patient Internal Medicine: Result - Labs CBC & Chem 7: 07/09/18 04:37 07/09/18 04:37 Labs: Short CBC 07/09/18 Range/Units 04:37 WBC 6.1 (4.3-11.1) K/mcL Hgb 9.4 L D (12.9-16.9) g/dL Hct 28.8 L (37.5-50.1) % Plt Count 217 (140-400) K/mcL Neutrophils # 3.5 (1.6-8.9) K/mcL BMP 07/09/18 04:37 Sodium 133 L Potassium 3.7 Chloride 100 Carbon Dioxide 29 BUN 11 Creatinine 0.78 Glucose 78 Calcium 7.7 L - ABG Interpretation ABG results: PT/INR, D-dimer PT 23.9 Seconds (9.4-12.1) H 07/09/18 04:37 Consult Discharge Plan - Plan Referrals: Goran Matthews MD [Primary Care Provider] - (1) CHF (congestive heart failure) Qualifiers: Qualified Code(s): I50.43 - Acute on chronic combined systolic (congestive) and diastolic (congestive) heart failure (2) Ascites Qualifiers: Ascites type: other type Qualified Code(s): R18.8 - Other ascites (4) Abdominal aortic aneurysm Qualifiers: Presence of rupture: without rupture Qualified Code(s): I71.4 - Abdominal aortic aneurysm, without rupture (5) Atrial fibrillation Qualifiers: Atrial fibrillation type: chronic Qualified Code(s): I48.2 - Chronic atrial fibrillation (6) Hypertension Qualifiers: Hypertension type: essential hypertension Qualified Code(s): I10 - Essential (primary) hypertension
[2018-07-09] MEDS ORDERED: *HR* Warfarin 2.5 MG TABLET PO ONE (18:00)
[2018-07-10 04:51] LABS: Basophils # 0.1 K/mcL (0.0-0.2); Basophils % 0.9 %; Eosinophils # 0.3 K/mcL (0.0-0.6); Eosinophils % 4.6 %; Hematocrit 28.1 % (37.5-50.1); Hemoglobin 9.3 g/dL (12.9-16.9); Immature Granulocytes % 0.3 % (0-4); Lymphocytes # 0.5 K/mcL (0.6-4.6); Lymphocytes % 7.7 %; Mean Corpuscular HGB Conc 33.1 g/dL (31.6-35.5); Mean Corpuscular Hemoglobin 35.5 pg (28.0-33.3); Mean Corpuscular Volume 107.3 fL (83.0-100.0); Mean Platelet Volume 9.1 fL (9.4-12.4); Monocytes # 1.6 K/mcL (0.0-1.3); Monocytes % 24.8 %; Platelet Count 206 K/mcL (140-400); Red Blood Count 2.62 M/mcL (4.19-5.50); Red Cell Distribution Width 21.2 % (11.5-14.5); Segmented Neutrophils % 61.7 %
[2018-07-10 04:57] LABS: INR 2.1; Prothrombin Time 23.7 Seconds (9.4-12.1)
[2018-07-10 05:09] LABS: BUN/Creatinine Ratio 14 (6-26); Blood Urea Nitrogen 11 mg/dL (8-23); Calcium 7.7 mg/dL (8.6-10.3); Carbon Dioxide 28 mEq/L (23-29); Chloride 98 mEq/L (98-107); Glucose 97 mg/dL (70-105); Magnesium 1.5 mg/dL (1.6-2.6); Osmolality,Calculated 267 (280-300); Sodium 129 mEq/L (136-145); eGFR For Non-African Americans > 60 (> 60)
[2018-07-10 05:26] LABS: Anisocytosis 2+ (Not Present); Hypochromasia Present (Not Present); Polychromasia 1+ (Not Present)
[2018-07-10 05:27] LABS: Platelet Estimate Normal (Normal)
[2018-07-10] MEDS ORDERED: Magnesium Oxide 400 MG TABLET PO ONE (07:14)
[2018-07-10] MEDS ORDERED: Albumin 25% 25gram/100mL 25 GM/100 ML IV.SOLN IVPB ONE ×2 (07:15→17:13)
--- NOTE | 2018-07-10 08:22 | Internal Med Progress Note ---
Hospitalist Progress Note - Encounter Date of Encounter: 07/10/18 Time of Encounter: 08:20 - Subjective Interval History: Evaluated at bedside, patient reports feeling well, denies shortness of breath, nausea, vomiting. diarrhea or chest pain. Denies fever or chills. - Exam Vitals: Temp Pulse Resp BP Pulse Ox 98.3 F 70 19 96/56 82 07/10/18 08:01 07/10/18 08:01 07/10/18 08:01 07/10/18 08:01 07/10/18 08:01 Exam: General: Alert and oriented 4. No acute distress. Skin: Generalized excoriation, Cardiovascular: RRR, Normal S1 & S2, no rubs, murmurs or gallops. JVD about 6cm. Lungs: persistent decreased breath sounds in the left lower, no wheezes or crackles. Abdomen: Soft, distended, with shifting waves, non-tender, no rigidity. NABS in all 4 quadrants. Extremities: 1+ pitting edema in the lower extremity bilaterally, 1+ pulse bilaterally in the lower extremity, cold lower extremities. Neurological: CN II-XII intact est of the physical exam is non contributory - Assessment and Plan (1) Hypotension Current Visit: Yes Status: Acute Assessment and Plan: Possible secondary to low pre-load. 9 litters balance negative post paracenthesis Plan Give 1Apm of albumin 25% (2) CHF (congestive heart failure) Current Visit: No Status: Acute Assessment and Plan: No crackles or rales on auscultation. Decreased breath sounds in the left lung. Plan: port chest x-ray On furosemide 20mg/IV BID with holding parameter for SBP <110 continue spironolactone with holding parameters for SBP <110 2gram sodium diet fluids restriction strict intake and output (3) Ascites Current Visit: Yes Status: Acute Assessment and Plan: fluid balance negative of 9 litters. Plan continue furosemide and spironolactone (4) Enteritis Current Visit: Yes Status: Acute Assessment and Plan: No diarrhea, abdominal pain. Patient tolerating well PO intake. Plan Discontinue IV antibiotics. will monitor clinically. (5) Abdominal aortic aneurysm Current Visit: Yes Status: Acute Assessment and Plan: Patient states that he does not want any interventions done. Educated about smoking cessation. Pending vascular surgery consultation. (6) Atrial fibrillation Current Visit: No Status: Chronic Assessment and Plan: Rate controlled Plan continue low dose beta arya and warfarin for anticoagulation INR as per pharmacy protocol (7) Hypertension Current Visit: No Status: Chronic Assessment and Plan: Hx of HNT. BP running in the low 90s after paracenthesis (8) Pleural effusion Current Visit: No Status: Chronic Assessment and Plan: decrease breath sound in the left lung. Plan repeart port chest x-ray incentive spirometry continue furosemide if BP tolerates it (9) Acute respiratory failure with hypoxemia Current Visit: No Status: Acute Assessment and Plan: Possible secondary to pleural effusion. vs abdominal ascitis. Plan O2 by nasal canula. titrate for O2Sat >92% gentle diuresis if tolerated. (10) DVT prophylaxis Current Visit: Yes Status: Acute Assessment and Plan: On warfarin due to A. fib. (11) Hyponatremia Current Visit: Yes Status: Acute Assessment and Plan: Plan fluid restricition to 1.5 litters a day. urine electrolytes serum and urine osm - Summary of Assessment and Plan Summary of Assessment and Plan: patient needs to remain in the hospital due to low BP post paracenthesis. and hypoxemic respiratory failure. - Time Spent with Patient Total time spent is greater than 50% in coordination of care (as documented) at patient's floor/unit and/or counseling patient: Greater than 35 minutes Plan of Care Discussed with: patient (and the nurse.) Internal Medicine: Result - Labs CBC & Chem 7: 07/10/18 04:27 07/10/18 04:27 Labs: Short CBC 07/10/18 Range/Units 04:27 WBC 6.5 (4.3-11.1) K/mcL Hgb 9.3 L (12.9-16.9) g/dL Hct 28.1 L (37.5-50.1) % Plt Count 206 (140-400) K/mcL Neutrophils # 4.0 (1.6-8.9) K/mcL BMP 07/10/18 04:27 Sodium 129 L Potassium 4.0 Chloride 98 Carbon Dioxide 28 BUN 11 Creatinine 0.79 Glucose 97 Calcium 7.7 L - ABG Interpretation ABG results: PT/INR, D-dimer PT 23.7 Seconds (9.4-12.1) H 07/10/18 04:27 Consult Discharge Plan - Plan Referrals: Goarn Matthews MD [Primary Care Provider] - (1) Hypotension Qualifiers: Hypotension type: unspecified hypotension type Qualified Code(s): I95.9 - Hypotension, unspecified (2) CHF (congestive heart failure) Qualifiers: Qualified Code(s): I50.43 - Acute on chronic combined systolic (congestive) and diastolic (congestive) heart failure (3) Ascites Qualifiers: Ascites type: other type Qualified Code(s): R18.8 - Other ascites (5) Abdominal aortic aneurysm Qualifiers: Presence of rupture: without rupture Qualified Code(s): I71.4 - Abdominal aortic aneurysm, without rupture (6) Atrial fibrillation Qualifiers: Atrial fibrillation type: chronic Qualified Code(s): I48.2 - Chronic atrial fibrillation (7) Hypertension Qualifiers: Hypertension type: essential hypertension Qualified Code(s): I10 - Essential (primary) hypertension
[2018-07-10] MEDS: levoFLOXacin 750 MG TABLET PO SCH (08:31)
[2018-07-10] MEDS: metroNIDAZOLE 500 MG TABLET PO SCH (08:31)
[2018-07-10] MEDS: Furosemide 20 MG/2 ML VIAL IVP SCH ×2 (08:38→18:17)
[2018-07-10] MEDS ORDERED: *HR* Warfarin 5 MG TABLET PO ONE (18:00)
[2018-07-11 05:50] LABS: INR 1.9; Prothrombin Time 21.7 Seconds (9.4-12.1)
[2018-07-11 07:05] LABS: BUN/Creatinine Ratio 16 (6-26); Blood Urea Nitrogen 12 mg/dL (8-23); Calcium 8.1 mg/dL (8.6-10.3); Carbon Dioxide 29 mEq/L (23-29); Chloride 99 mEq/L (98-107); Glucose 92 mg/dL (70-105); Magnesium 1.6 mg/dL (1.6-2.6); Osmolality,Calculated 269 (280-300); Potassium 4.3 mEq/L (3.5-5.1); Sodium 130 mEq/L (136-145); eGFR For Non-African Americans > 60 (> 60)
[2018-07-11 07:32] VITALS: BP 110/67
[2018-07-11] MEDS: Furosemide 20 MG/2 ML VIAL IVP SCH ×2 (07:51→08:47)
--- NOTE | 2018-07-11 07:51 | Discharge Summary ---
- NOTES TO OUTPATIENT PROVIDER Notes to Outpatient Provider: Follow-up with primary care physician, as an outpatient. Patient would benefit from periodical paracenteses. Orders not resulted at time of discharge: Pending orders 07/08/18 18:32 Culture,Body Fluid [RM] Routine 07/12/18 04:00 PT/INR [Prothrombin Time INR] [COAG] AM 0400 Date of Encounter: 07/11/18 Time of Encounter: 07:49 - Discharge Diagnosis (1) CHF (congestive heart failure) Priority: Primary Status: Chronic Qualifiers: Qualified Code(s): I50.43 - Acute on chronic combined systolic (congestive) and diastolic (congestive) heart failure (2) Hypotension Priority: Secondary Status: Resolved Qualifiers: Hypotension type: unspecified hypotension type Qualified Code(s): I95.9 - Hypotension, unspecified (3) Ascites Priority: Secondary Status: Chronic Qualifiers: Ascites type: other type Qualified Code(s): R18.8 - Other ascites (4) Enteritis Priority: Secondary Status: Resolved (5) Abdominal aortic aneurysm Priority: Secondary Status: Chronic Assessment and Plan: Patient recommended to be seen by a vascular surgeon, but patient refused any interventions.. Qualifiers: Presence of rupture: without rupture Qualified Code(s): I71.4 - Abdominal aortic aneurysm, without rupture (6) Atrial fibrillation Priority: Secondary Status: Chronic Qualifiers: Atrial fibrillation type: chronic Qualified Code(s): I48.2 - Chronic atrial fibrillation (7) Hypertension Priority: Secondary Status: Chronic Qualifiers: Hypertension type: essential hypertension Qualified Code(s): I10 - Essential (primary) hypertension (8) Pleural effusion Priority: Secondary Status: Resolved (9) DVT prophylaxis Priority: Secondary Status: Chronic (10) Hyponatremia Priority: Secondary Status: Resolved (11) Chronic respiratory failure Priority: Secondary Status: Chronic Assessment and Plan: Patient is on 4 L of home oxygen. Qualifiers: Respiratory failure complication: hypoxia Qualified Code(s): J96.11 - Chronic respiratory failure with hypoxia Hospital course: Mr. Ayala is a 68 year old male past medical history significant for lymphoma, CHF, coronary artery disease, hyperlipidemia, chronic hypoxemic respiratory failure on 4 L of home oxygen, and hypertension. Patient presented to the emergency room due to abdominal distention associated with shortness of breath. Of month duration. In the emergency room found to have moderate to severe abdominal ascites. Patient underwent a paracenteses, and 90 L of fluids were removed. After paracentesis patient received 3 Amps of albumin 25%. Patient respiratory symptoms resolve. And blood pressure has been stable. Patient is clinically is stable to be discharged home and follow-up with his primary care physician as an outpatient. - Time Spent with Patient Total time spent providing and/or coordinating discharge services: Greater than 30 minutes - Discharge Medications Prescriptions: Carvedilol 6.25 mg PO BIDWM 30 Days #60 tablet Diphenhydramine HCl [Allergy] 25 mg PO BID PRN 30 Days #60 tablet PRN Reason: Allergic Symptoms Zolpidem [Ambien] 10 mg PO HS PRN 30 Days #30 tablet PRN Reason: Insomnia Home Medications: Aspirin [Lo-Dose Aspirin EC] 81 mg PO DAILY 03/04/17 [History] Atorvastatin [Lipitor] 40 mg PO HS 03/04/17 [History] Warfarin [Coumadin] 5 mg PO 1800 03/04/17 [History] Bumetanide [Bumex] 2 mg PO BID #120 tablet 03/08/17 [Rx] Oxygen 4 l IN CONT #1 each 03/08/17 [Rx] Furosemide [Lasix] 40 mg PO QPM 07/08/18 [History] Furosemide [Lasix] 60 mg PO QAM 07/08/18 [History] Multivitamin/Iron/Folic Acid [Centrum Complete Multivit Tab] 1 each PO DAILY [History] Nitroglycerin [Nitrostat] 0.4 mg SL PRN PRN 07/08/18 [History] Carvedilol 6.25 mg PO BIDWM 30 Days #60 tablet 07/11/18 [Rx] Diphenhydramine HCl [Allergy] 25 mg PO BID PRN 30 Days #60 tablet 07/11/18 [Rx] Zolpidem [Ambien] 10 mg PO HS PRN 30 Days #30 tablet 07/11/18 [Rx] Allergies/Adverse Reactions: 3 Allergy/AdvReac Type Severity Reaction Status Date / Time No Known Allergies Allergy Verified 03/04/17 11:58 Date of admission: 07/08/18 18:08 Primary care physician: Goran Matthews MD - Constitutional Vitals: Temp Pulse Resp BP Pulse Ox 98.0 F 75 19 110/67 93 07/11/18 07:30 07/11/18 07:30 07/11/18 07:30 07/11/18 07:30 07/11/18 07:30 Exam: eneral: Alert and oriented 4. No acute distress. Skin: Generalized excoriation, Cardiovascular: RRR, Normal S1 & S2, no rubs, murmurs or gallops. JVD about 6cm. Lungs: Clear to auscultation bilaterally, with good air entry. no wheezes or crackles. Abdomen: Soft, distended, with shifting waves, non-tender, no rigidity. NABS in all 4 quadrants. Extremities: 1+ pitting edema in the lower extremity bilaterally, 1+ pulse bilaterally in the lower extremity, cold lower extremities. Neurological: CN II-XII intact est of the physical exam is non contributory - Patient Status Disposition: Home, Self-Care Condition: Good Functional capacity at discharge: independent ambulation Overall status at discharge: patient is progressing back to baseline - Discharge Instructions Follow Up With: Goran Matthews MD [Primary Care Provider] - Forms: ED Satisfaction Letter - Diet and Activity Activity: resume usual activities as tolerated Diet: advance to your usual diet
[2018-07-11] MEDS ORDERED: Furosemide 20 MG TABLET PO SCH (08:15)
[2018-07-11] MEDS ORDERED: *HR* Warfarin 5 MG TABLET PO ONE (18:00)
== END 2018-07-11 11:21 | disposition home or self-care (01) | DRG 291 ==
LOC: 2ANU 09:48 → EMEROOARM 09:48 → 2ANU 14:04 → SUATTDRO 18:08
PROVIDERS: ADMIT Internal Medicine; ATTEND Internal Medicine

== ENCOUNTER 2018-12-28 14:28 | Inpatient (IN) ==
--- NOTE | 2018-12-28 15:37 | Emergency Department Note ---
Disposition Clinical Impression: Abnormal ankle brachial index (BIRD) Anemia Qualifiers: Anemia type: unspecified type Qualified Code(s): D64.9 - Anemia, unspecified Disposition: Still a Patient Condition: Good Referrals: NONE,PCP [Primary Care Provider] - Forms: ED Satisfaction Letter General Adult HPI - General Chief complaint: ED Weakness Stated complaint: Numbness in legs Time Seen by Provider: 12/28/18 14:53 Source: patient, EMS Mode of arrival: EMS Limitations: no limitations Nursing Notes Reviewed: Yes Vital Signs Reviewed: Yes - History of Present Illness HPI Narrative: 68-year-old male who is a poor historian presenting to the emergency department with chief complaint of bilateral lower extremity weakness and paresthesias. Patient states that he has had these symptoms for multiple months to years but has been getting worse over the past few months. Patient states for the past 3- 4 days he had severe weakness in his bilateral lower extremities making it difficult to ambulate. He denies any other symptoms at home. Denies any falls. Denies any chest pain, shortness of breath, dizziness or headache. Patient states he is able to move his legs okay is just when he walks due to the paresthesias. Pain Scale: 4 - Related Data Home Medications Medication Instructions Recorded Confirmed Aspirin [Lo-Dose Aspirin EC] 81 mg PO DAILY 11/22/18 12/11/18 Multivit-Min/FA/Lycopen/Lutein 1 tab PO DAILY 11/22/18 12/11/18 [Centrum Silver Tablet] Previous Rx's Medication Instructions Recorded Bumetanide [Bumex] 2 mg PO BID #120 tablet 03/08/17 Oxygen 4 l IN CONT #1 each 03/08/17 Mag Hydrox/Al Hydrox/Simeth 30 ml PO Q4H PRN #30 udc 11/29/18 [Maalox] Omeprazole [PriLOSEC] 20 mg PO BIDAC #60 capsule. 11/29/18 Amoxicillin/Clavulanate [Augmentin] 875 mg PO BID #20 tablet 12/16/18 Allergies Allergy/AdvReac Type Severity Reaction Status Date / Time No Known Allergies Allergy Verified 11/22/18 18:25 All systems ED: reviewed and negative except as stated. Constitutional: Denies: fever Eyes: Reports: as per HPI ENT ED: Reports: as per HPI Cardiovascular: Denies: chest pain Respiratory: Denies: dyspnea Gastrointestinal: Denies: abdominal pain Genitourinary: Reports: as per HPI Musculoskeletal: Reports: as per HPI Integumentary: Denies: rash Neurological: Reports: paresthesias Psychiatric: Reports: as per HPI Endocrine: Reports: as per HPI Hematological/Lymphatic: Reports: as per HPI Allergic/Immunologic: Reports: as per HPI Past Medical History - Past Medical History Attestation: Yes The following information was validated with the patient. Medical history: Reports: cancer, cardiomyopathy, CHF, coronary artery disease, hyperlipidemia, hypertension Surgical history: Reports: no surgical history Psychiatric history: Reports: no psych history - Social History Smoking Status: Current every day smoker Smokeless Tobacco Status: No Alcohol use: Reports: occasionally Drug use: Reports: none Physical Exam - General Limitations: no limitations General appearance: alert, in no apparent distress - Head Head exam: atraumatic, normocephalic, normal inspection - Eye Eye exam: Absent: scleral icterus - ENT ENT exam: mucous membranes moist - Neck Neck exam: Present: full ROM - Chest Chest inspection: Present: symmetric chest wall rise - Respiratory Respiratory exam: Present: normal lung sounds bilaterally. Absent: respiratory distress, wheezes - Cardiovascular Cardiovascular exam: Present: regular rate, normal heart sounds - Abdominal Exam Abdominal exam: Present: soft, Non-Tender, other (Well-healing surgical site. No redness or discharge. Breanna in place.). Absent: distention, guarding, rebound - Extremities Exam Extremities exam: Present: full ROM, other (Bilateral lower extremities distal pulses diminished. Muscle strength 5 out of 5 equal bilateral lower extremities) - Neurological Exam Neurological exam: Present: alert - Psychiatric Psychiatric exam: Present: normal affect - Skin Skin exam: Present: warm Course Course Narrative: 68-year-old male presenting to the emergency department with chief complaint of lower extremity paresthesias. Patient states this is a chronic issue but has acutely gotten worse in the past few days. Denies any falls or trauma. In the room the patient is alert and hemodynamically stable. He is able to move all 4 extremities without difficulty. Distal pulses are diminished in the bilateral lower extremities. Physical exam does show well-healing surgical scar in the abdomen from his previous admission but otherwise is benign. At this time we will attempt to ambulate the patient to determine if he has weakness in his bilateral lower extremities. Disposition pending. Patient agrees with this plan. - Reevaluation(s) Reevaluation #1: Patient had ABIs completed that were critical with 0.2 and 1 leg and 0.3 and another. CTA with runoff ordered. Along with basic laboratory analysis. Disposition will most likely be admission. I rechecked the vascular surgeon he would like to be reconsulted once laboratory analysis and imaging has resulted. Patient remains alert and oriented 3 and hemodynamically stable at this time. Patient agrees with this plan. Reevaluation #2: Patient's hemoglobin likely low at 5.2. Patient denies any blood per rectum or hematuria. Patient denies rectal exam. He states that this has happened before and had colonoscopy and endoscopy that did not find any acute abnormality. Otherwise laboratory analysis is as at baseline for the patient. At this time will plan to sign out the patient to Dr. Jay and Dr. De La Vega pending CTA and admission. Patient remains alert and oriented 3 and hemodynamically stable. Vital Signs Temperature 97.7 F 12/28/18 15:28 Pulse Rate 81 12/28/18 15:28 Respiratory Rate 20 12/28/18 15:28 Blood Pressure 99/41 12/28/18 15:28 O2 Sat by Pulse Oximetry 96 12/28/18 15:28 Temperature 97.7 F 12/28/18 15:28 Pulse Rate 78 12/28/18 18:16 Respiratory Rate 14 12/28/18 18:16 Blood Pressure 101/57 12/28/18 18:16 O2 Sat by Pulse Oximetry 95 12/28/18 18:16 Oxygen Delivery Oxygen Delivery Nasal Cannula Medical Decision Making - Lab Data Result diagrams: 12/28/18 17:05 12/28/18 17:05 Lab Results 12/28/18 12/28/18 12/28/18 Range/Units 17:05 17:05 17:05 WBC 9.4 (4.3-11.1) K/mcL RBC 1.55 L (4.19-5.50) M/mcL Hgb 5.2 L* (12.9-16.9) g/dL Hct 15.9 L (37.5-50.1) % MCV 102.6 H (83.0-100.0) fL MCH 33.5 H (28.0-33.3) pg MCHC 32.7 (31.6-35.5) g/dL RDW 23.0 H (11.5-14.5) % Plt Count 271 (140-400) K/mcL MPV 8.9 L (9.4-12.4) fL Immature Gran % 0.4 (0-4) % Seg Neutrophils % 73.7 % Lymphocytes % 9.1 % Monocytes % 15.3 % Eosinophils % 1.1 % Basophils % 0.4 % Neutrophils # 6.9 (1.6-8.9) K/mcL Lymphocytes # 0.9 (0.6-4.6) K/mcL Monocytes # 1.4 H (0.0-1.3) K/mcL Eosinophils # 0.1 (0.0-0.6) K/mcL Basophils # 0.0 (0.0-0.2) K/mcL Anisocytosis 2+ A (Not Present) PT 11.8 (9.4-12.1) Seconds INR 1.0 APTT 31.7 (26.0-36.0) Seconds Sodium 135 L (136-145) mEq/L Potassium 4.1 (3.5-5.1) mEq/L Chloride 95 L (98-107) mEq/L Carbon Dioxide 33 H (23-29) mEq/L BUN 22 (8-23) mg/dL Creatinine 0.49 L (0.70-1.30) mg/dL Est GFR ( Amer) > 60 (> 60) Est GFR (Non-Af Amer) > 60 (> 60) BUN/Creatinine Ratio 45 H (6-26) Glucose 84 (70-105) mg/dL Calculated Osmolality 283 (280-300) Lactic Acid (0.5-2.2) mmol/L Calcium 8.9 (8.6-10.3) mg/dL Total Bilirubin 0.9 (0.3-1.0) mg/dL Direct Bilirubin 0.4 H (0.0-0.2) mg/dL Indirect Bilirubin 0.5 (0.0-1.2) mg/dL AST 11 L (13-39) Units/L ALT 9 (7-52) Units/L Alkaline Phosphatase 113 H (34-104) Units/L Serum Total Protein 5.5 L (6.4-8.9) g/dL Albumin 3.0 L (3.5-5.7) g/dL Globulin 2.5 (2.4-3.5) g/dL Albumin/Globulin Ratio 1.2 (1.1-2.2) 12/28/18 Range/Units 17:05 WBC (4.3-11.1) K/mcL RBC (4.19-5.50) M/mcL Hgb (12.9-16.9) g/dL Hct (37.5-50.1) % MCV (83.0-100.0) fL MCH (28.0-33.3) pg MCHC (31.6-35.5) g/dL RDW (11.5-14.5) % Plt Count (140-400) K/mcL MPV (9.4-12.4) fL Immature Gran % (0-4) % Seg Neutrophils % % Lymphocytes % % Monocytes % % Eosinophils % % Basophils % % Neutrophils # (1.6-8.9) K/mcL Lymphocytes # (0.6-4.6) K/mcL Monocytes # (0.0-1.3) K/mcL Eosinophils # (0.0-0.6) K/mcL Basophils # (0.0-0.2) K/mcL Anisocytosis (Not Present) PT (9.4-12.1) Seconds INR APTT (26.0-36.0) Seconds Sodium (136-145) mEq/L Potassium (3.5-5.1) mEq/L Chloride (98-107) mEq/L Carbon Dioxide (23-29) mEq/L BUN (8-23) mg/dL Creatinine (0.70-1.30) mg/dL Est GFR ( Amer) (> 60) Est GFR (Non-Af Amer) (> 60) BUN/Creatinine Ratio (6-26) Glucose (70-105) mg/dL Calculated Osmolality (280-300) Lactic Acid 0.7 (0.5-2.2) mmol/L Calcium (8.6-10.3) mg/dL Total Bilirubin (0.3-1.0) mg/dL Direct Bilirubin (0.0-0.2) mg/dL Indirect Bilirubin (0.0-1.2) mg/dL AST (13-39) Units/L ALT (7-52) Units/L Alkaline Phosphatase (34-104) Units/L Serum Total Protein (6.4-8.9) g/dL Albumin (3.5-5.7) g/dL Globulin (2.4-3.5) g/dL Albumin/Globulin Ratio (1.1-2.2) Attestation Statement - Attestation Attestation: I, Sam Castellano, examined this patient and my medical decision-making was reviewed with the INSTRUMENT LENS INSPECTOR/PA/Advanced Practice Nurse/Resident Physician. I agree with the documented findings, disposition and treatment plan as described except to the extent set forth below. 68-year-old male presents emergency Department with concerns of weakness in the bilateral lower extremity. Patient states he also has difficulty with ambulation secondary to decreased sensation his bilateral feet however over the past week and especially the past 2-3 days he has had significant worsening of pain and lack of sensation to the bilateral lower extremities, worse on the left. Patient is a poor historian and is unable to give an adequate history reg arding his prior surgeries and evaluations. Patient had difficult to palpate pulses of the bilateral lower extremity however he had cap-refill less than 4 seconds bilaterally. ABIs were performed which showed critical values bilaterally. We spoke with the vascular surgeon after the initial BIRD results however we are still pending laboratory evaluation and CTA of the bilateral lower extremity at that time. Vascular surgeon is aware. Laboratory evaluation shows patient is significantly anemic. He had a similar presentation within the past few years when he was anemic. He had a fecal occult positive test at that time and received multiple units of blood however they were unable to find a source of his bleeding. After return of his decreased hemoglobin we recommended and offered to perform a rectal exam to further evaluate of possible fecal occult blood however patient refused after discussion of risks and benefits. Patient likely has fecal occult blood as the source of his anemia however he denies recent diarrhea, hematochezia, melena. Patient care will be signed out to Dr. jay pending laboratory evaluation and CTA of the aorta with runoff for further evaluation of the patient's aortic occlusion. Aortic occlusion was likely acute on chronic in nature as he does have Refill, his bilateral feet are not cold and he does still have sensation and color to his feet.
[2018-12-28] MEDS ORDERED: Isovue-370 500 ML BOTTLE IVP ONE ×2 (16:45)
[2018-12-28 17:23] LABS: Basophils % 0.4 %
[2018-12-28 17:24] LABS: Eosinophils # 0.1 K/mcL (0.0-0.6); Eosinophils % 1.1 %; Hematocrit 15.9 % (37.5-50.1); Immature Granulocytes % 0.4 % (0-4); Lymphocytes # 0.9 K/mcL (0.6-4.6); Lymphocytes % 9.1 %; Mean Corpuscular HGB Conc 32.7 g/dL (31.6-35.5); Mean Corpuscular Hemoglobin 33.5 pg (28.0-33.3); Mean Corpuscular Volume 102.6 fL (83.0-100.0); Mean Platelet Volume 8.9 fL (9.4-12.4); Monocytes # 1.4 K/mcL (0.0-1.3); Monocytes % 15.3 %; Neutrophils # 6.9 K/mcL (1.6-8.9); Platelet Count 271 K/mcL (140-400); Red Blood Count 1.55 M/mcL (4.19-5.50); Segmented Neutrophils % 73.7 %
[2018-12-28 17:32] LABS: Prothrombin Time 11.8 Seconds (9.4-12.1)
[2018-12-28 17:35] LABS: Activated Partial Thrombo Time 31.7 Seconds (26.0-36.0)
[2018-12-28 17:40] LABS: Hemoglobin 5.2 g/dL (12.9-16.9)
[2018-12-28 17:41] LABS: Alanine Aminotransferase 9 Units/L (7-52); Albumin/Globulin Ratio 1.2 (1.1-2.2); Alkaline Phosphatase 113 Units/L (34-104); Aspartate Amino Transferase 11 Units/L (13-39); BUN/Creatinine Ratio 45 (6-26); Bilirubin,Direct 0.4 mg/dL (0.0-0.2); Bilirubin,Indirect 0.5 mg/dL (0.0-1.2); Bilirubin,Total 0.9 mg/dL (0.3-1.0); Blood Urea Nitrogen 22 mg/dL (8-23); Calcium 8.9 mg/dL (8.6-10.3); Carbon Dioxide 33 mEq/L (23-29); Chloride 95 mEq/L (98-107); Globulin 2.5 g/dL (2.4-3.5); Glucose 84 mg/dL (70-105); Osmolality,Calculated 283 (280-300); Potassium 4.1 mEq/L (3.5-5.1); Sodium 135 mEq/L (136-145); Total Protein 5.5 g/dL (6.4-8.9); eGFR For Non-African Americans > 60 (> 60)
[2018-12-28 17:52] LABS: Anisocytosis 2+ (Not Present)
[2018-12-28] MEDS ORDERED: 0.9 % Sodium Chloride 250 ML ONE (20:38)
--- NOTE | 2018-12-28 20:55 | Emergency Department Note ---
Disposition Clinical Impression: Abnormal ankle brachial index (BIRD) Anemia Qualifiers: Anemia type: unspecified type Qualified Code(s): D64.9 - Anemia, unspecified Disposition: Still a Patient Condition: Good Referrals: NONE,PCP [Primary Care Provider] - Forms: ED Satisfaction Letter General Adult HPI - General Chief complaint: ED Weakness Stated complaint: Numbness in legs Time Seen by Provider: 12/28/18 14:53 Source: patient, EMS Mode of arrival: EMS Limitations: no limitations - History of Present Illness Pain Scale: 0 - Related Data Home Medications Medication Instructions Recorded Confirmed Aspirin [Lo-Dose Aspirin EC] 81 mg PO DAILY 11/22/18 12/11/18 Multivit-Min/FA/Lycopen/Lutein 1 tab PO DAILY 11/22/18 12/11/18 [Centrum Silver Tablet] Previous Rx's Medication Instructions Recorded Bumetanide [Bumex] 2 mg PO BID #120 tablet 03/08/17 Oxygen 4 l IN CONT #1 each 03/08/17 Mag Hydrox/Al Hydrox/Simeth 30 ml PO Q4H PRN #30 udc 11/29/18 [Maalox] Omeprazole [PriLOSEC] 20 mg PO BIDAC #60 capsule. 11/29/18 Amoxicillin/Clavulanate [Augmentin] 875 mg PO BID #20 tablet 12/16/18 Allergies Allergy/AdvReac Type Severity Reaction Status Date / Time No Known Allergies Allergy Verified 11/22/18 18:25 Constitutional: Denies: fever Eyes: Reports: as per HPI ENT ED: Reports: as per HPI Cardiovascular: Denies: chest pain Respiratory: Denies: dyspnea Gastrointestinal: Denies: abdominal pain Genitourinary: Reports: as per HPI Musculoskeletal: Reports: as per HPI Integumentary: Denies: rash Neurological: Reports: paresthesias Psychiatric: Reports: as per HPI Endocrine: Reports: as per HPI Hematological/Lymphatic: Reports: as per HPI Allergic/Immunologic: Reports: as per HPI Past Medical History - Past Medical History Medical history: Reports: cancer, cardiomyopathy, CHF, coronary artery disease, hyperlipidemia, hypertension Surgical history: Reports: no surgical history Psychiatric history: Reports: no psych history - Social History Smoking Status: Current every day smoker Smokeless Tobacco Status: No Alcohol use: Reports: occasionally Drug use: Reports: none Physical Exam - General Limitations: no limitations General appearance: alert, in no apparent distress Course Vital Signs Temperature 97.7 F 12/28/18 15:28 Pulse Rate 81 12/28/18 15:28 Respiratory Rate 20 12/28/18 15:28 Blood Pressure 99/41 12/28/18 15:28 O2 Sat by Pulse Oximetry 96 12/28/18 15:28 Temperature 97.7 F 12/28/18 16:05 Pulse Rate 73 12/28/18 19:37 Respiratory Rate 16 12/28/18 19:37 Blood Pressure 108/65 12/28/18 19:37 O2 Sat by Pulse Oximetry 98 12/28/18 19:37 Oxygen Delivery Oxygen Delivery Nasal Cannula Medical Decision Making - Lab Data Result diagrams: 12/28/18 17:05 12/28/18 17:05 Lab Results 12/28/18 12/28/18 12/28/18 Range/Units 17:05 17:05 17:05 WBC 9.4 (4.3-11.1) K/mcL RBC 1.55 L (4.19-5.50) M/mcL Hgb 5.2 L* (12.9-16.9) g/dL Hct 15.9 L (37.5-50.1) % MCV 102.6 H (83.0-100.0) fL MCH 33.5 H (28.0-33.3) pg MCHC 32.7 (31.6-35.5) g/dL RDW 23.0 H (11.5-14.5) % Plt Count 271 (140-400) K/mcL MPV 8.9 L (9.4-12.4) fL Immature Gran % 0.4 (0-4) % Seg Neutrophils % 73.7 % Lymphocytes % 9.1 % Monocytes % 15.3 % Eosinophils % 1.1 % Basophils % 0.4 % Neutrophils # 6.9 (1.6-8.9) K/mcL Lymphocytes # 0.9 (0.6-4.6) K/mcL Monocytes # 1.4 H (0.0-1.3) K/mcL Eosinophils # 0.1 (0.0-0.6) K/mcL Basophils # 0.0 (0.0-0.2) K/mcL Anisocytosis 2+ A (Not Present) PT 11.8 (9.4-12.1) Seconds INR 1.0 APTT 31.7 (26.0-36.0) Seconds Sodium 135 L (136-145) mEq/L Potassium 4.1 (3.5-5.1) mEq/L Chloride 95 L (98-107) mEq/L Carbon Dioxide 33 H (23-29) mEq/L BUN 22 (8-23) mg/dL Creatinine 0.49 L (0.70-1.30) mg/dL Est GFR ( Amer) > 60 (> 60) Est GFR (Non-Af Amer) > 60 (> 60) BUN/Creatinine Ratio 45 H (6-26) Glucose 84 (70-105) mg/dL Calculated Osmolality 283 (280-300) Lactic Acid (0.5-2.2) mmol/L Calcium 8.9 (8.6-10.3) mg/dL Total Bilirubin 0.9 (0.3-1.0) mg/dL Direct Bilirubin 0.4 H (0.0-0.2) mg/dL Indirect Bilirubin 0.5 (0.0-1.2) mg/dL AST 11 L (13-39) Units/L ALT 9 (7-52) Units/L Alkaline Phosphatase 113 H (34-104) Units/L Serum Total Protein 5.5 L (6.4-8.9) g/dL Albumin 3.0 L (3.5-5.7) g/dL Globulin 2.5 (2.4-3.5) g/dL Albumin/Globulin Ratio 1.2 (1.1-2.2) Blood Type Antibody Screen Crossmatch 12/28/18 12/28/18 Range/Units 17:05 18:52 WBC (4.3-11.1) K/mcL RBC (4.19-5.50) M/mcL Hgb (12.9-16.9) g/dL Hct (37.5-50.1) % MCV (83.0-100.0) fL MCH (28.0-33.3) pg MCHC (31.6-35.5) g/dL RDW (11.5-14.5) % Plt Count (140-400) K/mcL MPV (9.4-12.4) fL Immature Gran % (0-4) % Seg Neutrophils % % Lymphocytes % % Monocytes % % Eosinophils % % Basophils % % Neutrophils # (1.6-8.9) K/mcL Lymphocytes # (0.6-4.6) K/mcL Monocytes # (0.0-1.3) K/mcL Eosinophils # (0.0-0.6) K/mcL Basophils # (0.0-0.2) K/mcL Anisocytosis (Not Present) PT (9.4-12.1) Seconds INR APTT (26.0-36.0) Seconds Sodium (136-145) mEq/L Potassium (3.5-5.1) mEq/L Chloride (98-107) mEq/L Carbon Dioxide (23-29) mEq/L BUN (8-23) mg/dL Creatinine (0.70-1.30) mg/dL Est GFR ( Amer) (> 60) Est GFR (Non-Af Amer) (> 60) BUN/Creatinine Ratio (6-26) Glucose (70-105) mg/dL Calculated Osmolality (280-300) Lactic Acid 0.7 (0.5-2.2) mmol/L Calcium (8.6-10.3) mg/dL Total Bilirubin (0.3-1.0) mg/dL Direct Bilirubin (0.0-0.2) mg/dL Indirect Bilirubin (0.0-1.2) mg/dL AST (13-39) Units/L ALT (7-52) Units/L Alkaline Phosphatase (34-104) Units/L Serum Total Protein (6.4-8.9) g/dL Albumin (3.5-5.7) g/dL Globulin (2.4-3.5) g/dL Albumin/Globulin Ratio (1.1-2.2) Blood Type O POSITIVE Antibody Screen NEGATIVE Crossmatch See Detail Attestation Statement - Attestation Attestation: I examined this patient and my medical decision-making was reviewed with the Resident Physician. I agree with the documented findings, disposition and treatment plan as described except to the extent set forth below. Patient signed out to Dr. De La Vega and I Aorta w/Runoff CTA 12/28/18 16:45 IMPRESSION: VASCULAR: 1. 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 2. 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 Recommend follow-up as per below. 3. Multifocal severe stenosis of the right superficial femoral artery and popliteal artery. Multifocal severe stenosis of the right trifurcation vessels. Evaluation of the trifurcation vessels is limited due to bolus timing, however, the anterior tibial artery is not visualized distal to the proximal to mid diaphysis of the tibia. The right peroneal artery and posterior tibial artery are not visualized distal to the distal diaphysis of the tibia and fibula. 4. Multifocal severe stenosis of the left superficial femoral artery and left popliteal artery. Multifocal severe stenosis of the trifurcation vessels of the left lower extremity. There is single vessel runoff to the left foot through the left anterior tibial artery. The left peroneal artery and posterior tibial artery are not visualized past the level of the distal diaphysis of the tibia and fibula. Nonvascular: 1. Similar appearance of right pleural effusion with chronic pleural thickening which may reflect loculated effusion. Adjacent atelectasis also appears similar. 2. Large fluid collection again identified within the abdomen which contains locules of gas and rim enhancement similar to prior exam from November 22, 2018 the collection today measures 8.4 x 27.2 x 23.6 cm. Patient previously had drainage procedure of the previous collection. 3. Cholelithiasis. 4. Nonspecific circumferential wall thickening of the bladder which potentially may be related to bladder outlet obstruction. Recommend clinical correlation to exclude cystitis. RECOMMENDATIONS: Managing Abdominal Aortic Aneurysms 2.6-2.9 cm: Every 5 years* 3.0-3.4 cm: Every 3 years. 3.5-3.9 cm: Every 1 year. 4.0-4.4 cm: Every 1 year. Recommend vascular consultation. 4.5-5.4 cm: Every 6 months. Recommend vascular consultation. Greater than or equal to 5.5 cm: Referral to vascular surgeon. *For abdominal aortas with maximum diameter of 2.6-2.9 cm meeting criteria for AAA (>50% of proximal normal segment). D/ / Chato Londono MD / Chato Londono MD Interpreting Provider: Chato Londono MD tonight pending CT. We did review the CT. Dr. De La Vega discussed the patient with on-call vascular. We will admit to medicine.
--- NOTE | 2018-12-28 21:14 | Vascular/Endovasc Consult Note ---
Date of Encounter: 12/28/18 Time of Encounter: 21:11 Assessment and Plan (1) Anemia Current Visit: Yes Status: Chronic Qualifiers: Anemia type: unspecified type Qualified Code(s): D64.9 - Anemia, un specified (2) PAD (peripheral artery disease) Current Visit: Yes Status: Chronic The patient has an occlusion of his abdominal aorta with reconstitution of the common femoral arteries bilaterally. The patient is not a good candidate for transabdominal aortobifemoral bypass. He would benefit from revascularization to enhance the flow to the lower extremities as he is symptomatic. I will recommend to transfuse him first and see how he does. If he continues to have ischemic symptoms to his lower extremities and his ABIs do not improve he might benefit from an axillarybifemoral bypass after medical clearance and stabilization of his multiple medical issues. His ascites need to be controlled. His liver reserve need to be assessed. His anemia need to be corrected and the etiology need to be corrected. He will need cardiac clearance. He will need carotid ultrasound preop. Thank you very much for the consultation feel free to call if you any questions of concerns. The vascular team will follow him along. (3) Ascites Current Visit: Yes Status: Chronic Qualifiers: Ascites type: other type Qualified Code(s): R18.8 - Other ascites (4) Heart failure with reduced ejection fraction Current Visit: No Status: Chronic Qualifiers: Heart failure chronicity: chronic Qualified Code(s): I50.22 - Chronic systolic (congestive) heart failure (5) Decompensation of cirrhosis of liver Current Visit: No Status: Acute - History of Present Illness Consult date: 12/28/18 History of present illness: Mr. Ayala is a 68 year old male seen at the request of Dr. De La Vega for severe peripheral vascular disease involving the lower extremities bilaterally. The patient was recently admitted to the hospital with abdominal pain. He was found to have large volume of ascites secondary to cirrhosis of the liver. His albumin is 5. His coag are normal. The patient was drained and scope. Reportedly his EGD and colonoscopy were normal. His hemoglobin on arrival was 5. The patient denies any pain in his lower extremities. He complains of intermittent numbness which became constant in the past few days. His ABIs so severely depressed perfusion to the lower extremities bilaterally. Patient underwent a CT angiogram of the abdomen and bilateral lower extremities which showed an infrarenal aneurysm was occlusion of the abdominal aorta and reconstitution of the common femoral bifurcations bilaterally. The superficial femoral arteries are patent Bard diffusely disease. There are two-vessel runoff bilaterally the posterior tibial mostly on the right and the left peroneal and anterior tibial artery. The patient is going to be admitted to the medical service for transfusion. The patient moves his extremities bilaterally. He has no motor deficit. He denies any rest pain. He has no compartment syndrome. Past Med Surg Social Fam HX - Past Medical History Medical history: cancer, cardiomyopathy, cirrhosis, CHF, coronary artery disease, hyperlipidemia, hypertension, peripheral artery disease (Occluded abdominal aorta), other (Ascites) Additional medical history: Lymphoma Psychiatric history: no psych history - Past Surgical History Surgical History: no surgical history - Social History Smoking Status: Current every day smoker Smokeless Tobacco Status: No Alcohol use: occasionally Drug use: none - Family History Mother Adopted: Yes Living Status: Still Living Medications and Allergies Bumetanide [Bumex] 2 mg PO BID #120 tablet 03/08/17 [Rx] Oxygen 4 l IN CONT #1 each 03/08/17 [Rx] Aspirin [Lo-Dose Aspirin EC] 81 mg PO DAILY 11/22/18 [History] Multivit-Min/FA/Lycopen/Lutein [Centrum Silver Tablet] 1 tab PO DAILY 11/22/18 [History] Mag Hydrox/Al Hydrox/Simeth [Maalox] 30 ml PO Q4H PRN #30 udc 11/29/18 [Rx] Omeprazole [PriLOSEC] 20 mg PO BIDAC #60 capsule. 11/29/18 [Rx] Amoxicillin/Clavulanate [Augmentin] 875 mg PO BID #20 tablet 12/16/18 [Rx] Allergy/AdvReac Type Severity Reaction Status Date / Time No Known Allergies Allergy Verified 11/22/18 18:25 All Systems Review: The remainder of the systems were reviewed and are negative - Constitutional Constitutional: anorexia - Vascular Vascular: leg pain with exertion, lower extremity discoloration, lower extremity coldness - Gastrointestinal Gastrointestinal: abdominal pain - Musculoskeletal Musculoskeletal: abnormal gait - Integumentary Integumentary: erythema Exam Vital Signs, Last 4 Hours Pulse Resp BP Pulse Ox 12/28/18 19:37 73 16 108/65 98 12/28/18 18:16 78 14 101/57 95 General: Present: No Apparent Distress HEENT: Present: Trachea midline, Pupils equal Cardiac: Present: Reg Rate and Rhythm, Normal S1 and S2, No Murmur Lungs: Present: Normal Breath Sounds, No Wheeze, Rales, Rhonchi Neuro: Present: Alert and responsive, No focal deficits noted Abdomen: Present: Other (Distended was large cystitis) Vascular: Present: Pulse, absent, Other Consult Discharge Plan - Plan Referrals: NONE,PCP [Primary Care Provider] -
[2018-12-28] MEDS ORDERED: Acetaminophen 325 MG TABLET PO PRN (23:27)
[2018-12-28] MEDS ORDERED: Naloxone 0.4 MG/ML INJ IVP PRN (23:27)
[2018-12-28] MEDS ORDERED: traMADol 50 MG TABLET PO PRN (23:27)
[2018-12-28] MEDS ORDERED: Ondansetron 4 MG/2 ML VIAL IVP PRN (23:27)
[2018-12-29] MEDS ORDERED: 0.9 % Sodium Chloride 500 ML ONE (00:33)
[2018-12-29] MEDS ORDERED: Temazepam 15 MG CAPSULE PO PRN (01:04)
[2018-12-29] MEDS: Sucralfate 1 GM TABLET PO SCH ×5 (01:18→20:05)
--- NOTE | 2018-12-29 01:31 | Internal Med History&Physical ---
Date of Encounter: 12/28/18 Time of Encounter: 22:30 Internal Medicine - H&P: HPI Chief complaint: BLE wekaness/pain; anemia Admitted From: Emergency Dept Plans for Post Hospital Care: Home History of present illness: Mr. Ayala is a 68 year old male who presents to the ER with complaints of bilateral lower extremity weakness, numbness, and pain. He was found to have evidence of significant anemia. Additionally, he was found to have evidence of chronic occlusion of the distal infrarenal aorta. He also had several other areas of stenosis in his femoral arteries. This prompted a vascular surgery consultation in the ER. As such, he was admitted to hospitalist service with a vascular surgery consultation. I reviewed his old records and recent endoscopy notes where he was found to have evidence of duodenal ulcer on EGD. He also had some polyps in the colon, which were removed. Given his recurrent and profound anemia, I am concerned about GI bleeding. He denies any melena, hematochezia, hematemesis, or coffee-ground emesis. Unfortunately, he is a poor historian and does not pay attention much to his bowel movements, eating habits, and/or day-to-day function. His biggest complaint is his legs and pain with ambulation. He also complains of paresthesias in his legs. He denies any fevers, chills, or night sweats. He lives alone and is unable to care for himself at the present time due to the lo wer extremity problems. Past Med Surg Social Fam HX - Past Medical History Attestation: Yes The following information was validated with the patient. Source: patient, old records reviewed Medical history: cancer, cardiomyopathy, cirrhosis, CHF, coronary artery disease, hyperlipidemia, hypertension, peripheral artery disease Additional medical history: Lymphoma Psychiatric history: no psych history - Past Surgical History Surgical History: no surgical history - Social History Smoking Status: Current every day smoker Smokeless Tobacco Status: No Alcohol use: rarely Drug use: none Current living situation: Home - Independent Activity Level: Independent ambulation, Mostly sedentary Recent Out of Country Travel Within the Last 8 Weeks: No - Family History Mother Adopted: Yes Living Status: Still Living Internal Medicine - H&P: Meds Aspirin [Lo-Dose Aspirin EC] 81 mg PO DAILY 11/22/18 [History] Multivit-Min/FA/Lycopen/Lutein [Centrum Silver Tablet] 1 tab PO DAILY 11/22/18 [History] Bumetanide 2 mg PO BID 12/28/18 [History] Carvedilol 12.5 mg PO BID 12/28/18 [History] Allergy/AdvReac Type Severity Reaction Status Date / Time No Known Allergies Allergy Verified 11/22/18 18:25 - Constitutional Constitutional: fatigue, weakness, no chills, no fever(s) - EENT Eyes: no blurry vision, no change in vision Ears: no ear pain, no tinnitus Nose, mouth and throat: no epistaxis, no nasal congestion, no sore throat - Cardiovascular Cardiovascular ROS IM: dyspnea, dyspnea on exertion, no chest pain, no orthopnea, no syncope - Respiratory Respiratory: no cough, no hemoptysis, no chest congestion, no excessive phlegm production, no change in phlegm color, no pain with cough - Gastrointestinal Gastrointestinal: early satiety, no abdominal pain, no coffee ground emesis, no diarrhea, no hematemesis, no hematochezia, no melena, no vomiting - Genitourinary Genitourinary ROS male: no dysuria, no flank pain, no hematuria - Musculoskeletal Musculoskeletal ROS IM: arthralgias, back pain, muscle cramps, muscle weakness, tingling (legs) - Integumentary Integumentary IM: no rash, no jaundice - Neurological Neurological ROS: paresthesias (legs), no disequilibrium, no dizziness, no focal weakness, no frequent falls, no headache(s) - Psychiatric Psychiatric: no anxiety, no depression - Endocrine Endocrine IM: no cold intolerance, no heat intolerance, no polydipsia, no polyuria - Allergic/Immunologic Allergic/Immunologic: no GI upset with certain foods - Constitutional Vitals: Temp Pulse Resp BP Pulse Ox 97.5 F L 72 16 132/52 100 12/29/18 01:12 12/29/18 01:12 12/29/18 01:12 12/29/18 01:12 12/29/18 01:12 General appearance: Present: cooperative, disheveled, A&O X 3, answers questions appropriately. Absent: pleasant (patient not very pleasant, cooperative, and often verbally aggressive with staff and docs) Exam: see below - Head Head exam: Present: atraumatic, normal inspection - Eye Eye exam: Present: EOMI, PERRL. Absent: scleral icterus Pupils: Present: normal accommodation - ENT ENT exam: Present: mucous membranes dry, normal oropharynx - Neck Neck exam general surgery: Present: full ROM, supple, trachea midline. Absent: lymphadenopathy, tenderness, nuchal rigidity, thyromegaly - Respiratory Respiratory exam: Present: CTAB. Absent: chest wall tenderness, rales, rhonchi, wheezes - Cardiovascular Cardiovascular exam: Present: distant heart sounds, RRR, +S1, +S2. Absent: diastolic murmur, systolic murmur - GI/Abdominal GI/Abdominal exam: Present: normal bowel sounds, soft. Absent: guarding, hepatomegaly, mass, rebound, splenomegaly, tenderness - Extremities Exam Extremities exam: Present: full ROM, tenderness, warm. Absent: calf tenderness, cyanotic, mottling, pedal edema - Back Exam Back exam: Absent: CVA tenderness (L), CVA tenderness (R) - Neurological Exam Neurological exam: Present: alert, oriented X3, no focal deficits - Psychiatric Psychiatric exam: Present: agitated - Skin Skin exam: Present: dry, intact Internal Med - H&P Results - Labs CBC & Chem 7: 12/28/18 17:05 12/28/18 17:05 Labs: Short CBC 12/28/18 Range/Units 17:05 WBC 9.4 (4.3-11.1) K/mcL Hgb 5.2 L* (12.9-16.9) g/dL Hct 15.9 L (37.5-50.1) % Plt Count 271 (140-400) K/mcL Neutrophils # 6.9 (1.6-8.9) K/mcL BMP 12/28/18 17:05 Sodium 135 L Potassium 4.1 Chloride 95 L Carbon Dioxide 33 H BUN 22 Creatinine 0.49 L Glucose 84 Calcium 8.9 Liver Function 12/28/18 Range/Units 17:05 Total Bilirubin 0.9 (0.3-1.0) mg/dL Direct Bilirubin 0.4 H (0.0-0.2) mg/dL AST 11 L (13-39) Units/L ALT 9 (7-52) Units/L Alkaline Phosphatase 113 H (34-104) Units/L Albumin 3.0 L (3.5-5.7) g/dL - Impressions ITS Impressions Aorta w/Runoff CTA 03/10/19 16:45 IMPRESSION: VASCULAR: 1. 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 2. 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 Recommend follow-up as per below. 3. Multifocal severe stenosis of the right superficial femoral artery and popliteal artery. Multifocal severe stenosis of the right trifurcation vessels. Evaluation of the trifurcation vessels is limited due to bolus timing, however, the anterior tibial artery is not visualized distal to the proximal to mid diaphysis of the tibia. The right peroneal artery and posterior tibial artery are not visualized distal to the distal diaphysis of the tibia and fibula. 4. Multifocal severe stenosis of the left superficial femoral artery and left popliteal artery. Multifocal severe stenosis of the trifurcation vessels of the left lower extremity. There is single vessel runoff to the left foot through the left anterior tibial artery. The left peroneal artery and posterior tibial artery are not visualized past the level of the distal diaphysis of the tibia and fibula. Nonvascular: 1. Similar appearance of right pleural effusion with chronic pleural thickening which may reflect loculated effusion. Adjacent atelectasis also appears similar. 2. Large fluid collection again identified within the abdomen which contains locules of gas and rim enhancement similar to prior exam from November 22, 2018 the collection today measures 8.4 x 27.2 x 23.6 cm. Patient previously had drainage procedure of the previous collection. 3. Cholelithiasis. 4. Nonspecific circumferential wall thickening of the bladder which potentially may be related to bladder outlet obstruction. Recommend clinical correlation to exclude cystitis. RECOMMENDATIONS: Managing Abdominal Aortic Aneurysms 2.6-2.9 cm: Every 5 years* 3.0-3.4 cm: Every 3 years. 3.5-3.9 cm: Every 1 year. 4.0-4.4 cm: Every 1 year. Recommend vascular consultation. 4.5-5.4 cm: Every 6 months. Recommend vascular consultation. Greater than or equal to 5.5 cm: Referral to vascular surgeon. *For abdominal aortas with maximum diameter of 2.6-2.9 cm meeting criteria for AAA (>50% of proximal normal segment). D/ / Chato Londono MD / Chato Londono MD Interpreting Provider: Chato Londono MD - Assessment and Plan (1) Acute on chronic blood loss anemia Current Visit: Yes Status: Suspected Assessment and plan: 1. Patient refused FOBT in ER. 2. Will order stool hemoccult. 3. Trend H/H. 4. Transfuse PRBC's to maintain hgb > 8. 5. Consult GI for upper endoscopy. 6. Will treat with PPI and carafate given recent finding of duodenal ulcer. (2) PAD (peripheral artery disease) Current Visit: Yes Status: Chronic Assessment and plan: 1. Vascular surgery consulted. 2. Defer surgical needs to vascular surgery. (3) CAD (coronary artery disease) Current Visit: Yes Status: Chronic Assessment and plan: 1. Patient denies any symptoms. 2. Will monitor on telemetry. 3. Recent ECHO results reviewed. Qualifiers: Coronary Disease-Associated Artery/Lesion type: [place] artery [place] vs. transplanted heart: [place] heart Associated angina: without angina Qualified Code(s): I25.10 - Atherosclerotic heart disease of [place] coronary artery without angina pectoris (4) DVT prophylaxis Current Visit: Yes Status: Acute Assessment and plan: 1. EPCD's.
[2018-12-29] MEDS ORDERED: 0.9 % Sodium Chloride 250 ML ONE (03:21)
[2018-12-29] MEDS: Pantoprazole 40 MG VIAL IVP SCH ×2 (06:19→17:01)
[2018-12-29] MEDS: Multivit/Ca/Min/Fe/FA 1 TAB TABLET PO SCH (08:05)
[2018-12-29] MEDS: Bumetanide 1 MG TABLET PO SCH ×2 (08:05→17:01)
[2018-12-29 08:40] LABS: Basophils # 0.1 K/mcL (0.0-0.2); Basophils % 0.8 %; Eosinophils # 0.1 K/mcL (0.0-0.6); Hematocrit 23.5 % (37.5-50.1); Immature Granulocytes % 0.5 % (0-4); Lymphocytes # 0.8 K/mcL (0.6-4.6); Lymphocytes % 8.4 %; Mean Corpuscular HGB Conc 33.2 g/dL (31.6-35.5); Mean Corpuscular Hemoglobin 32.5 pg (28.0-33.3); Mean Corpuscular Volume 97.9 fL (83.0-100.0); Mean Platelet Volume 8.8 fL (9.4-12.4); Monocytes # 1.5 K/mcL (0.0-1.3); Neutrophils # 6.4 K/mcL (1.6-8.9); Nucleated Red Blood Cells 0.2 /100 WBC (0); Platelet Count 225 K/mcL (140-400); Red Cell Distribution Width 19.9 % (11.5-14.5); Segmented Neutrophils % 72.3 %
[2018-12-29 08:49] LABS: Hemoglobin 7.8 g/dL (12.9-16.9)
[2018-12-29 08:59] LABS: Alanine Aminotransferase 9 Units/L (7-52); Albumin/Globulin Ratio 1.2 (1.1-2.2); Alkaline Phosphatase 105 Units/L (34-104); Aspartate Amino Transferase 13 Units/L (13-39); BUN/Creatinine Ratio 46 (6-26); Bilirubin,Total 2.1 mg/dL (0.3-1.0); Blood Urea Nitrogen 22 mg/dL (8-23); Calcium 8.9 mg/dL (8.6-10.3); Carbon Dioxide 34 mEq/L (23-29); Chloride 96 mEq/L (98-107); Chol/HDL Ratio 3.9 (0-4.9); Cholesterol 106 mg/dL (< 200); Globulin 2.5 g/dL (2.4-3.5); Glucose 90 mg/dL (70-105); HDL Cholesterol 27 mg/dL (40-59); LDL Cholesterol,Calculated 64 mg/dL (0-99); Magnesium 1.8 mg/dL (1.6-2.6); Osmolality,Calculated 279 (280-300); Potassium 4.1 mEq/L (3.5-5.1); Sodium 133 mEq/L (136-145); Total Protein 5.5 g/dL (6.4-8.9); Triglycerides 75 mg/dL (< 150); eGFR For Non-African Americans > 60 (> 60)
--- NOTE | 2018-12-29 10:41 | Internal Med Progress Note ---
Hospitalist Progress Note - Encounter Date of Encounter: 12/29/18 Time of Encounter: 10:39 - Subjective Interval History: Patient seen and examined at bedside. Patient states that he feels fine this morning. Upset that he is not been able to have food to eat. He states that he is not having scopes done today to [place] what. He is very angry and states that if he is having anything that he needs to have an exact time so he knows when he can eat. Denies fever, chills, abdominal pain, nausea, vomiting. - Exam Vitals: Temp Pulse Resp BP Pulse Ox 97.6 F 73 16 105/63 96 12/29/18 10:24 12/29/18 10:24 12/29/18 10:24 12/29/18 10:24 12/29/18 10:24 Exam: Heart: Regular rate and rhythm, no murmurs, rubs or gallops Lungs: Clear to auscultation bilaterally, no rales, wheezes Abdomen: Soft, mildly distended, no tenderness. Normoactive bowel sounds. - Assessment and Plan (1) Acute on chronic blood loss anemia Current Visit: Yes Status: Suspected Assessment and Plan: Patient presented with hemoglobin of 5.2, baseline appears to be around 8. Etiology unclear. Concern for GI losses. Hemoccult stool pending. GI consult pending. At this point patient is absolutely refusing endoscopy procedures. Patient received 3 units of packed red blood cells and blood counts responded appropriately. Recheck hemoglobin this afternoon and transfuse for hemoglobin less than 7. (2) PAD (peripheral artery disease) Current Visit: Yes Status: Chronic Assessment and Plan: She presented with lower extremity pain. He has known peripheral vascular disease. Vascular surgery is following. No critical ischemia is present. Further management of his peripheral vascular disease progression her surgery. (3) Intraabdominal fluid collection Current Visit: No Status: Acute Assessment and Plan: On CAT scan patient is noted to have redemonstration of a large intra-abdominal fluid collection. Patient did undergo surgery on December 14 for infected ascites. Patient does not have fever or leukocytosis and does not have abdominal pain. Discussed with surgeon who performed his previous surgery who felt like if there is no signs of infection there is no urgent intervention needed. We will continue to monitor. (4) CAD (coronary artery disease) Current Visit: Yes Status: Chronic Assessment and Plan: Chest pain-free at this time. (5) DVT prophylaxis Current Visit: Yes Status: Acute Assessment and Plan: EPCD's. - Time Spent with Patient Total time spent is greater than 50% in coordination of care (as documented) at patient's floor/unit and/or counseling patient: Internal Medicine: Result - Labs CBC & Chem 7: 12/29/18 08:27 12/29/18 08:27 Labs: Short CBC 12/28/18 12/29/18 Range/Units 17:05 08:27 WBC 9.4 8.9 (4.3-11.1) K/mcL Hgb 5.2 L* 7.8 L D (12.9-16.9) g/dL Hct 15.9 L 23.5 L (37.5-50.1) % Plt Count 271 225 (140-400) K/mcL Neutrophils # 6.9 6.4 (1.6-8.9) K/mcL BMP 12/28/18 12/29/18 17:05 08:27 Sodium 135 L 133 L Potassium 4.1 4.1 Chloride 95 L 96 L Carbon Dioxide 33 H 34 H BUN 22 22 Creatinine 0.49 L 0.48 L Glucose 84 90 Calcium 8.9 8.9 Liver Function 12/28/18 12/29/18 Range/Units 17:05 08:27 Total Bilirubin 0.9 2.1 H (0.3-1.0) mg/dL Direct Bilirubin 0.4 H (0.0-0.2) mg/dL AST 11 L 13 (13-39) Units/L ALT 9 9 (7-52) Units/L Alkaline Phosphatase 113 H 105 H (34-104) Units/L Albumin 3.0 L 3.0 L (3.5-5.7) g/dL - ABG Interpretation ABG results: PT/INR, D-dimer PT 11.8 Seconds (9.4-12.1) 12/28/18 17:05 - Impressions Impressions Aorta w/Runoff CTA 12/28/18 16:45 IMPRESSION: VASCULAR: 1. 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 2. 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 Recommend follow-up as per below. 3. Multifocal severe stenosis of the right superficial femoral artery and popliteal artery. Multifocal severe stenosis of the right trifurcation vessels. Evaluation of the trifurcation vessels is limited due to bolus timing, however, the anterior tibial artery is not visualized distal to the proximal to mid diaphysis of the tibia. The right peroneal artery and posterior tibial artery are not visualized distal to the distal diaphysis of the tibia and fibula. 4. Multifocal severe stenosis of the left superficial femoral artery and left popliteal artery. Multifocal severe stenosis of the trifurcation vessels of the left lower extremity. There is single vessel runoff to the left foot through the left anterior tibial artery. The left peroneal artery and posterior tibial artery are not visualized past the level of the distal diaphysis of the tibia and fibula. Nonvascular: 1. Similar appearance of right pleural effusion with chronic pleural thickening which may reflect loculated effusion. Adjacent atelectasis also appears similar. 2. Large fluid collection again identified within the abdomen which contains locules of gas and rim enhancement similar to prior exam from November 22, 2018 the collection today measures 8.4 x 27.2 x 23.6 cm. Patient previously had drainage procedure of the previous collection. 3. Cholelithiasis. 4. Nonspecific circumferential wall thickening of the bladder which potentially may be related to bladder outlet obstruction. Recommend clinical correlation to exclude cystitis. RECOMMENDATIONS: Managing Abdominal Aortic Aneurysms 2.6-2.9 cm: Every 5 years* 3.0-3.4 cm: Every 3 years. 3.5-3.9 cm: Every 1 year. 4.0-4.4 cm: Every 1 year. Recommend vascular consultation. 4.5-5.4 cm: Every 6 months. Recommend vascular consultation. Greater than or equal to 5.5 cm: Referral to vascular surgeon. *For abdominal aortas with maximum diameter of 2.6-2.9 cm meeting criteria for AAA (>50% of proximal normal segment). D/ / Chato Londono MD / Chato Londono MD Interpreting Provider: Chato Londono MD Consult Discharge Plan - Plan Referrals: NONE,PCP [Primary Care Provider] - (4) CAD (coronary artery disease) Qualifiers: Coronary Disease-Associated Artery/Lesion type: [place] artery [place] vs. transplanted heart: [place] heart Associated angina: without angina Qualified Code(s): I25.10 - Atherosclerotic heart disease of [place] coronary artery without angina pectoris
--- NOTE | 2018-12-29 13:29 | Gastroenterology Consult Note ---
<Zeferino Griffin - Last Filed: 12/29/18 13:26> Date of Encounter: 12/29/18 Time of Encounter: 11:10 - Assessment and plan (1) Anemia Current Visit: Yes Status: Chronic Assessment and plan: He was found to have Hgb 5.2 and received 3 units PRBC and Hgb 7.8 today. No obvious source of bleeding. Check iron, B12, and folate. Colonoscopy 08/22/2018 Dr. Cade: Two tubular adenoma 5 and 6 mm, internal hemorrhoids, repeat 5 years. EGD 08/19/2018 Dr. Cade: Suspicious for Corona's esophagus biopsies negative, duodenal erosions/ulcers, gastritis. Plan for capsule endoscopy as outpatient. Qualifiers: Anemia type: unspecified type Qualified Code(s): D64.9 - Anemia, unspecified (2) Cirrhosis of liver Current Visit: No Status: Chronic Assessment and plan: Liver US 11/25/2018 with large complex ascites with numerous septations. Check AFP. Lifestyle Changes: 1. Total abstinence from alcohol including social drinking. 2. No smoking. 3. Gradual loss of weight. 4. Drink at least 3 cups of coffee due to its antioxidant effects in the liver, it reduces risk of HCC and advance fibrosis. 5. If needed, use less than 2 g/day of Tylenol (in divided doses). 6. Vaccination for Hep A, B, Pneumococcus if not already received and yearly influenza vaccination by PCP. 7. Avoid NSAIDS as can cause kidney damage. 8. Avoid benzodiazepines and other sedatives such as anti-histamines, narcotics etc. as can cause encephalopathy or confusion. 9. Take a late carbohydrate meal supplement as it reduces glucose production from protein breakdown and thus improves nutrition. 10. In cirrhosis, statins are safe to use and also improve portal hypertension and decrease risk of HCC. 11. Screening: Hepatocellular cancer screening: US of liver and AFP every 6 months Qualifiers: Hepatic cirrhosis type: alcoholic cirrhosis Ascites presence: with ascites Qualified Code(s): K70.31 - Alcoholic cirrhosis of liver with ascites - Time Spent With Patient Total time spent is greater than 50% in coordination of care (as documented) at patient's floor/unit and/or counseling patient: GI History of Present Illness - Data of Consult Patient: known to practice within the last 3 years Consult date: 12/29/18 Requesting Physician: Zeferino Monterroso, - Consult Narrative Reason for consult: Anemia, UGI bleed History of present illness: Mr. Ayala is a 68 year old male with PMHx of cardiomyopathy, cirrhosis secondary to CHF, CAD, HLD, HTN who presents to the ER with complaints of bilateral lower extremity weakness, numbness, and pain. He was found to have Hgb 5.2 and received 3 units PRBC and Hgb 7.8 today. He was recently admitted with SBP. Last EGD Jul 2018 with duodenal ulcer. He denies fever, chills, abdominal pain, melena, hematochezia, hematemesis, or coffee-ground emesis. Procedures: Colonoscopy 08/22/2018 Dr. Cade: Two tubular adenoma 5 and 6 mm, internal hemorrhoids, repeat 5 years. EGD 08/19/2018 Dr. Cade: Suspicious for Corona's esophagus biopsies negative, duodenal erosions/ulcers, gastritis. NSAIDs: ASA Anticoagulation: None Past Med Surg Social Fam HX - Past Medical History Medical history: cancer, cardiomyopathy, cirrhosis, CHF, coronary artery disease, hyperlipidemia, hypertension, peripheral artery disease Additional medical history: Lymphoma Psychiatric history: no psych history - Past Surgical History Surgical History: no surgical history - Social History Smoking Status: Current every day smoker Smokeless Tobacco Status: No Alcohol use: rarely Drug use: none - Family History Mother Adopted: Yes Living Status: Still Living - Gastrointestinal Gastrointestinal: Present: as per HPI - Constitutional Constitutional: as per HPI - EENT Eyes: as per HPI Ears: Present: as per HPI Nose, mouth and throat: Present: as per HPI - Cardiovascular Cardiovascular ROS: Present: as per HPI - Respiratory Respiratory IM: Present: as per HPI - Genitourinary Genitourinary: Absent: change in color, Urinary frequency - Neurological ROS Neurological GI: Present: as per HPI - Hematologic/Lymphatic Hematologic/Lymphatic pediatric: Present: as per HPI - Musculoskeletal Musculoskeletal ROS GI: Present: as per HPI - Integumentary Integumentary GI: Present: as per HPI - Psychiatric ROS Psychiatric GI: Present: as per HPI - Endocrine Endocrine IM: Present: as per HPI - Constitutional Vitals: Temp Pulse Resp BP Pulse Ox 97.6 F 73 16 105/63 96 12/29/18 10:24 12/29/18 10:24 12/29/18 10:24 12/29/18 10:24 12/29/18 10:24 General appearance: Present: cooperative, A&O X 3, no acute distress, answers questions appropriately - Head Head exam: Present: atraumatic, normocephalic - Eye Eye exam: Present: normal appearance, sclera anicteric - ENT ENT exam: Present: mucous membranes dry - Neck Neck exam general surgery: Present: normal inspection, trachea midline - Respiratory Respiratory exam: Present: CTAB. Absent: rales, rhonchi - Cardiovascular Cardiovascular exam: Present: RRR, +S1, +S2 - GI/Abdominal GI/Abdominal exam: Present: distended (mild), soft, no peritoneal signs. Absent: firm, guarding, tenderness - Rectal Rectal exam: Present: deferred - Extremities Exam Extremities exam: Present: warm - Neurological Exam Neurological exam: Present: no focal deficits - Psychiatric Psychiatric exam: Present: normal affect, normal mood - Skin Skin exam: Present: dry, intact, normal color, warm Results - Labs CBC & Chem 7: 12/29/18 08:27 12/29/18 08:27 Labs: Last Result Calcium 8.9 mg/dL (8.6-10.3) 12/29/18 08:27 Triglycerides 75 mg/dL (< 150) 12/29/18 08:27 Entire Visit Hgb 7.8 g/dL (12.9-16.9) L D 12/29/18 08:27 Hct 23.5 % (37.5-50.1) L 12/29/18 08:27 PT 11.8 Seconds (9.4-12.1) 12/28/18 17:05 Total Bilirubin 2.1 mg/dL (0.3-1.0) H 12/29/18 08:27 AST 13 Units/L (13-39) 12/29/18 08:27 ALT 9 Units/L (7-52) 12/29/18 08:27 - ABG ABG results: PT/INR, D-dimer PT 11.8 Seconds (9.4-12.1) 12/28/18 17:05 - Impressions Impressions Aorta w/Runoff CTA 12/28/18 16:45 IMPRESSION: VASCULAR: 1. 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 2. 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 Recommend follow-up as per below. 3. Multifocal severe stenosis of the right superficial femoral artery and popliteal artery. Multifocal severe stenosis of the right trifurcation vessels. Evaluation of the trifurcation vessels is limited due to bolus timing, however, the anterior tibial artery is not visualized distal to the proximal to mid diaphysis of the tibia. The right peroneal artery and posterior tibial artery are not visualized distal to the distal diaphysis of the tibia and fibula. 4. Multifocal severe stenosis of the left superficial femoral artery and left popliteal artery. Multifocal severe stenosis of the trifurcation vessels of the left lower extremity. There is single vessel runoff to the left foot through the left anterior tibial artery. The left peroneal artery and posterior tibial artery are not visualized past the level of the distal diaphysis of the tibia and fibula. Nonvascular: 1. Similar appearance of right pleural effusion with chronic pleural thickening which may reflect loculated effusion. Adjacent atelectasis also appears similar. 2. Large fluid collection again identified within the abdomen which contains locules of gas and rim enhancement similar to prior exam from November 22, 2018 the collection today measures 8.4 x 27.2 x 23.6 cm. Patient previously had drainage procedure of the previous collection. 3. Cholelithiasis. 4. Nonspecific circumferential wall thickening of the bladder which potentially may be related to bladder outlet obstruction. Recommend clinical correlation to exclude cystitis. RECOMMENDATIONS: Managing Abdominal Aortic Aneurysms 2.6-2.9 cm: Every 5 years* 3.0-3.4 cm: Every 3 years. 3.5-3.9 cm: Every 1 year. 4.0-4.4 cm: Every 1 year. Recommend vascular consultation. 4.5-5.4 cm: Every 6 months. Recommend vascular consultation. Greater than or equal to 5.5 cm: Referral to vascular surgeon. *For abdominal aortas with maximum diameter of 2.6-2.9 cm meeting criteria for AAA (>50% of proximal normal segment). D/ / Chato Londono MD / Chato Londono MD Interpreting Provider: Chato Londono MD Consult Discharge Plan - Plan Referrals: NONE,PCP [Primary Care Provider] - <Shyam Cade - Last Filed: 12/29/18 18:13> Date of Encounter: 12/29/18 Time of Encounter: 18:00 - Time Spent With Patient Total time spent is greater than 50% in coordination of care (as documented) at patient's floor/unit and/or counseling patient: GI History of Present Illness - Data of Consult Requesting Physician: Zeferino Monterroso, - Consult Narrative History of present illness: Mr. Ayala is a 68 year old male - Constitutional Vitals: Temp Pulse Resp BP Pulse Ox 97.8 F 72 16 108/62 96 12/29/18 15:19 12/29/18 15:19 12/29/18 15:19 12/29/18 15:19 12/29/18 15:19 Results - Labs CBC & Chem 7: 12/29/18 13:33 12/29/18 08:27 Labs: Last Result Calcium 8.9 mg/dL (8.6-10.3) 12/29/18 08:27 Iron 173 mcg/dL (65-175) 12/29/18 14:40 % Saturation 68 % (20-55) H 12/29/18 14:40 Transferrin 182 mg/dL (203-362) L 12/29/18 14:40 Triglycerides 75 mg/dL (< 150) 12/29/18 08:27 Vitamin B12 541 pg/mL (250-1100) 12/29/18 14:40 Folate 20.7 ng/mL (3.0-16.0) H 12/29/18 14:40 Entire Visit Hgb 7.4 g/dL (12.9-16.9) L 12/29/18 13:33 Hct 22.5 % (37.5-50.1) L 12/29/18 13:33 PT 11.8 Seconds (9.4-12.1) 12/28/18 17:05 Total Bilirubin 2.1 mg/dL (0.3-1.0) H 12/29/18 08:27 AST 13 Units/L (13-39) 12/29/18 08:27 ALT 9 Units/L (7-52) 12/29/18 08:27 Folate 20.7 ng/mL (3.0-16.0) H 12/29/18 14:40 - ABG ABG results: PT/INR, D-dimer PT 11.8 Seconds (9.4-12.1) 12/28/18 17:05 - Impressions Impressions Aorta w/Runoff CTA 12/28/18 16:45 IMPRESSION: VASCULAR: 1. 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 2. 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 Recommend follow-up as per below. 3. Multifocal severe stenosis of the right superficial femoral artery and popliteal artery. Multifocal severe stenosis of the right trifurcation vessels. Evaluation of the trifurcation vessels is limited due to bolus timing, however, the anterior tibial artery is not visualized distal to the proximal to mid diaphysis of the tibia. The right peroneal artery and posterior tibial artery are not visualized distal to the distal diaphysis of the tibia and fibula. 4. Multifocal severe stenosis of the left superficial femoral artery and left popliteal artery. Multifocal severe stenosis of the trifurcation vessels of the left lower extremity. There is single vessel runoff to the left foot through the left anterior tibial artery. The left peroneal artery and posterior tibial artery are not visualized past the level of the distal diaphysis of the tibia and fibula. Nonvascular: 1. Similar appearance of right pleural effusion with chronic pleural thickening which may reflect loculated effusion. Adjacent atelectasis also appears similar. 2. Large fluid collection again identified within the abdomen which contains locules of gas and rim enhancement similar to prior exam from November 22, 2018 the collection today measures 8.4 x 27.2 x 23.6 cm. Patient previously had drainage procedure of the previous collection. 3. Cholelithiasis. 4. Nonspecific circumferential wall thickening of the bladder which potentially may be related to bladder outlet obstruction. Recommend clinical correlation to exclude cystitis. RECOMMENDATIONS: Managing Abdominal Aortic Aneurysms 2.6-2.9 cm: Every 5 years* 3.0-3.4 cm: Every 3 years. 3.5-3.9 cm: Every 1 year. 4.0-4.4 cm: Every 1 year. Recommend vascular consultation. 4.5-5.4 cm: Every 6 months. Recommend vascular consultation. Greater than or equal to 5.5 cm: Referral to vascular surgeon. *For abdominal aortas with maximum diameter of 2.6-2.9 cm meeting criteria for AAA (>50% of proximal normal segment). D/ / Chato Londono MD / Chato Londono MD Interpreting Provider: Chato Londono MD - Attending Attestation I have personally performed a face to face evaluation on this patient. I have reviewed and agree with the care plan. History and Exam by me shows: Pt seen denies any bloody bowel movement. initially admitted because of s ymptomatic peripheral vascular disease and found to be very anemic. Examination: Alert awake and oriented. Does has very diminished dorsalis pedis pulses. Assessment: Patient is a 68-year-old male with multiple comorbidities including CHF cirrhosis peripheral vascular disease now with severe anemia. Recommendation: EGD tomorrow to rule out peptic ulcer disease if negative then capsule endoscopy as an outpatient does not need a colonoscopy because he just had a colonoscopy done couple of months ago. Because of his CHF and cirrhosis patient will be moderate to high risk for surgical intervention for her peripherovascular disease.
[2018-12-29 13:53] LABS: Hematocrit 22.5 % (37.5-50.1); Hemoglobin 7.4 g/dL (12.9-16.9)
[2018-12-29 15:43] LABS: % Iron Saturation 68 % (20-55); Iron 173 mcg/dL (65-175); Transferrin 182 mg/dL (203-362)
[2018-12-29 16:09] LABS: Folate 20.7 ng/mL (3.0-16.0)
[2018-12-30 01:58] LABS: Hematocrit 21.6 % (37.5-50.1); Hemoglobin 7.1 g/dL (12.9-16.9); Mean Corpuscular HGB Conc 32.9 g/dL (31.6-35.5); Mean Corpuscular Hemoglobin 32.4 pg (28.0-33.3); Mean Corpuscular Volume 98.6 fL (83.0-100.0); Mean Platelet Volume 9.2 fL (9.4-12.4); Platelet Count 216 K/mcL (140-400); Red Blood Count 2.19 M/mcL (4.19-5.50); Red Cell Distribution Width 20.7 % (11.5-14.5)
[2018-12-30 02:14] LABS: BUN/Creatinine Ratio 33 (6-26); Blood Urea Nitrogen 22 mg/dL (8-23); Calcium 8.3 mg/dL (8.6-10.3); Carbon Dioxide 32 mEq/L (23-29); Chloride 95 mEq/L (98-107); Glucose 92 mg/dL (70-105); Magnesium 1.5 mg/dL (1.6-2.6); Osmolality,Calculated 283 (280-300); Potassium 3.8 mEq/L (3.5-5.1); Sodium 135 mEq/L (136-145); eGFR For Non-African Americans > 60 (> 60)
[2018-12-30 02:34] LABS: Basophils # 0.2 K/mcL (0.0-0.2); Eosinophils # 0.2 K/mcL (0.0-0.6); Monocytes # 0.6 K/mcL (0.0-1.3); Platelet Estimate Normal (Normal)
--- NOTE | 2018-12-30 03:14 | Event Note ---
Date of Encounter: 12/30/18 Time of Encounter: 00:50 Notified by nurse that patient was previously denying tele monitor, but when placed tonight appears to have ST depression. No EKG on admission. EKG ordered. Minimal ST depression noted on EKG. Previously transfused during admission with 3 units due to hemoglobin of 5.[address] depression and current hemoglobin of 7.1 will transfuse again now rather than planned transfusion with hemoglobin less than 7. Vitals stable, patient asymptomatic. Reviewed EKG and plan with Dr Pierce.
[2018-12-30] MEDS ORDERED: 0.9 % Sodium Chloride 250 ML ONE (03:28)
[2018-12-30] MEDS: Pantoprazole 40 MG VIAL IVP SCH ×2 (06:07→17:50)
[2018-12-30] MEDS: Multivit/Ca/Min/Fe/FA 1 TAB TABLET PO SCH (08:59)
[2018-12-30] MEDS: Bumetanide 1 MG TABLET PO SCH ×2 (08:59→17:43)
[2018-12-30] MEDS: Sucralfate 1 GM TABLET PO SCH ×4 (08:59→21:55)
[2018-12-30 11:33] LABS: Hematocrit 24.3 % (37.5-50.1); Hemoglobin 8.2 g/dL (12.9-16.9)
--- NOTE | 2018-12-30 11:58 | Internal Med Progress Note ---
Hospitalist Progress Note - Encounter Date of Encounter: 12/30/18 Time of Encounter: 11:56 - Subjective Interval History: Patient seen and examined at bedside. Patient states that he feels okay this morning. He reports continued numbness in his lower extremities bilaterally. Denies abdominal pain, nausea, vomiting, fever. - Exam Vitals: Temp Pulse Resp BP Pulse Ox 97.5 F L 80 14 108/58 98 12/30/18 10:13 12/30/18 10:13 12/30/18 10:13 12/30/18 10:35 12/30/18 10:13 Exam: Heart: Regular rate and rhythm, no murmurs, rubs or gallops Lungs: Clear to auscultation bilaterally, no rales, wheezes Abdomen: Soft, mildly distended, no tenderness. Normoactive bowel sounds. - Assessment and Plan (1) Acute on chronic blood loss anemia Current Visit: Yes Status: Suspected Assessment and Plan: Patient presented with hemoglobin of 5.2, baseline appears to be around 8. Etiology unclear. Concern for GI losses. Hemoglobin stable today. GI evaluated the patient and plan for upper endoscopy today. No indication for further transfusion. (2) Ventricular tachycardia Current Visit: Yes Status: Acute Assessment and Plan: Overnight patient was noted to have a 17 beat run of nonsustained ventricular tachycardia. Patient was asymptomatic. Did not lose pulse. Magnesium was noted to be low and this will be replaced. Blood pressure had been borderline low so beta arya had been held. We will restart beta arya. Continue telemetry, if patient has another episode consider cardiology consult. (3) PAD (peripheral artery disease) Current Visit: Yes Status: Chronic Assessment and Plan: Patient presented with lower extremity pain. He has known peripheral vascular disease. Vascular surgery is following. No critical ischemia is present, likely outpatient follow-up. (4) Intraabdominal fluid collection Current Visit: No Status: Acute Assessment and Plan: On CT scan patient is noted to have redemonstration of a large intra-abdominal fluid collection. Patient did undergo surgery on December 14 for infected ascites. Patient does not have fever or leukocytosis and does not have abdominal pain. Discussed with surgeon who performed his previous surgery who felt like if there is no signs of infection there is no urgent intervention needed. Breanna removed by the nurse today.. (5) CAD (coronary artery disease) Current Visit: Yes Status: Chronic Assessment and Plan: Chest pain-free at this time. - Time Spent with Patient Total time spent is greater than 50% in coordination of care (as documented) at patient's floor/unit and/or counseling patient: Internal Medicine: Result - Labs CBC & Chem 7: 12/30/18 10:58 12/30/18 01:34 Labs: Short CBC 12/29/18 12/30/18 12/30/18 Range/Units 13:33 01:34 10:58 WBC 7.9 (4.3-11.1) K/mcL Hgb 7.4 L 7.1 L 8.2 L (12.9-16.9) g/dL Hct 22.5 L 21.6 L 24.3 L (37.5-50.1) % Plt Count 216 (140-400) K/mcL Neutrophils # 6.0 (1.6-8.9) K/mcL BMP 12/30/18 01:34 Sodium 135 L Potassium 3.8 Chloride 95 L Carbon Dioxide 32 H BUN 22 Creatinine 0.67 L Glucose 92 Calcium 8.3 L - ABG Interpretation ABG results: PT/INR, D-dimer PT 11.8 Seconds (9.4-12.1) 12/28/18 17:05 Consult Discharge Plan - Plan Referrals: Lambert Hubbard [Resident] - (5) CAD (coronary artery disease) Qualifiers: Coronary Disease-Associated Artery/Lesion type: [place] artery [place] vs. transplanted heart: [place] heart Associated angina: without angina Qualified Code(s): I25.10 - Atherosclerotic heart disease of [place] coronary artery without angina pectoris
[2018-12-30] MEDS ORDERED: *HR* Propofol 200 MG/20 ML VIAL IVP ONE (12:02)
--- NOTE | 2018-12-30 12:35 | Anesthesia Evaluation PreOp ---
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 ALCOHOLIC), Bleeding (PEDUODENAL ULCER, BY RECENT EGD, ACUTE ON CHRONIC ANEMIA), Other (LYMPHOMA) Anesthesia History: No Prior Anesthetic Complications, Past Anesthesia Alcohol Use: rarely Drug use: none Medications and Allergies RX: Aspirin [Lo-Dose Aspirin EC] 81 mg PO DAILY 11/22/18 [History] RX: Multivit-Min/FA/Lycopen/Lutein [Centrum Silver Tablet] 1 tab PO DAILY 11/22/18 [History] Bumetanide 2 mg PO BID 12/28/18 [History] Carvedilol 12.5 mg PO BID 12/28/18 [History] Allergy/AdvReac Type Severity Reaction Status Date / Time No Known Allergies Allergy Verified 11/22/18 18:25 - Meds/Allergy Pre-op Review Medications Reviewed: Yes Allergies Reviewed: Yes Beta Blockers on Current Med List: Yes If Beta Blockers taken, Date/Time (Last Dose taken): BB ON HOLD - HYPOTENSION Anesthesia Results - Labs 12/30/18 10:58 12/30/18 01:34 Anesthesia Exam Vital Signs/O2 Sat/Glucose, Most Recent Temp Pulse Resp BP Pulse Ox 97.7 F 80 18 110/54 98 12/30/18 12:32 12/30/18 10:13 12/30/18 12:32 12/30/18 12:32 12/30/18 10:13 Blood Glucose* 254 NPO (# of Hours): 8 - HEENT Mallampati: I Teeth: Missing Denture Type: Upper: Complete, Lower: Partial Oral Opening: Greater than 3 - Cardiac Rhythm: Irregular - Pulmonary Breath Sounds: bilateral Clear Respiratory Effort: Symmetrical Anesthesia Assess/Plan ASA Score: 4 Anesthetic Plan: MAC Monitoring Plan: Standard Monitors Recovery Plan: Other
--- NOTE | 2018-12-30 13:34 | Anesthesia Evaluation Post Op ---
Date of Encounter: 12/30/18 Time of Encounter: 13:28 - Vital Signs Vital Signs: BP 85/44 P67 R 16 spo2 98 - Lungs Lungs: Clear Ascult./Percussion - Airway Airway: Non-obstructed - Cardiovascular Regular Rate - Mental Status Mental Status: Alert & Oriented, Answers Appropriately - Pain Pain Scale: 0 Pain Scale used: Numeric (1 - 10) - Nausea Vomiting Nausea Vomiting: Not Present - Hydration Hydration: NPO, Has not voided - Discharge PostOp Status: Transfer Patient to floor
--- NOTE | 2018-12-30 17:33 | Vascular/[facility]as Progress Note ---
Date of Encounter: 12/30/18 Time of Encounter: 17:00 - Assessment and plan (1) Atherosclerosis of [place] arteries of extremities with intermittent claudication, bilateral legs Status: Chronic The patient has a chronic he does report disabling claudication. He denies rest pain, ulceration or gangrene. He has no signs of acute limb threatening ischemia at this time. There is no indication for emergent or urgent surgical intervention. The patient remains a poor candidate for surgical intervention at this time due to his ascites and ongoing progressive anemia. He has required multiple units of packed red blood cells. He is hemodynamically stable. Due to his ongoing anemia he is not a candidate for aspirin or Plavix at this time. Continue with atherosclerotic risk factor reduction. Begin aspirin 81 mg when able to tolerate it. A long discussion was held with the patient and his family regarding his current condition. (2) Atrial flutter Status: Chronic Qualifiers: Atrial flutter type: unspecified Qualified Code(s): I48.92 - Unspecified atrial flutter (3) Cirrhosis of liver Status: Chronic The patient has ascites associated with cirrhosis. He has undergone multiple paracentesis procedures. Qualifiers: Hepatic cirrhosis type: alcoholic cirrhosis Ascites presence: with ascites Qualified Code(s): K70.31 - Alcoholic cirrhosis of liver with ascites (4) Hypertension Status: Chronic The patient was counter atherosclerotic risk factor reduction. Qualifiers: Hypertension type: essential hypertension Qualified Code(s): I10 - Essential (primary) hypertension (5) Nonischemic cardiomyopathy Status: Chronic The patient has moderate left ventricular diastolic dysfunction by echocardiogram in July 2018. Left ventricular ejection fraction 55% (6) Tobacco use disorder Status: Chronic He was counseled regarding smoking cessation. (7) Acute on chronic blood loss anemia Status: Chronic His hemoglobin has been as low as 5.2 during this admission. The patient has had multiple transfusions during this admission. He has undergone endoscopy. - Subjective Interval history: The patient reports a history of disabling claudication. He denies rest pain, ulceration or gangrene. He continues to report chronic parasthesias of the bilateral lower extremities. The patient underwent EGD today. He denies any chest pain or shortness of breath. Vital Signs, Last 4 Hours Temp Pulse Resp BP Pulse Ox 12/30/18 16:16 97.4 F L 75 14 100/60 93 12/30/18 14:03 76 16 99/54 - Physical Examination General: Present: Conversant, No Apparent Distress HEENT: Present: Pupils equal Neck: Absent: JVD, Lymphadenopathy, Left Carotid bruit, Right Carotid bruit Cardiac: Present: Reg Rate and Rhythm, Normal S1 and S2 Lungs: Present: Normal Breath Sounds, No Wheeze, Rales, Rhonchi Neuro: Present: Alert and responsive, No focal deficits noted, Motor nerves grossly intact, Sensory nerves grossly intact Vascular: Present: Normal capillary refill, Pulse, absent (The bilateral femoral, popliteal and tibial pulses are absent, pedal signals are present), Pulse, normal (Bilateral radial pulses are normal). Absent: Cyanosis, Edema Abdomen: Present: Soft, Non-tender Skin: Present: No rashes noted on visualized skin Musculoskeletal: Present: No Chest Wall Tenderness Results 12/31/18 08:41 12/31/18 08:41 Lab Results, Last 24 hours 12/30/18 12/30/18 12/30/18 01:34 01:34 10:58 WBC 7.9 Hgb 7.1 L Hct 21.6 L Plt Count 216 Sodium 135 L Potassium 3.8 Chloride 95 L Carbon Dioxide 32 H BUN 22 Creatinine 0.67 L Glucose 92 Calcium 8.3 L Magnesium 1.5 L 1.8 12/30/18 10:58 WBC Hgb 8.2 L Hct 24.3 L Plt Count Sodium Potassium Chloride Carbon Dioxide BUN Creatinine Glucose Calcium Magnesium - Imaging / Other Tests CT/CTA: report reviewed, image reviewed Consult Discharge Plan - Plan Instructions: Peripheral Vascular Disorders (DC), Anemia (GEN) Additional Instructions: PPI daily and carafate BID for 2 weeks Resume ASA in 2 weeks per GI follow up with GI and vascular surgery as outpatient As for redemonstration of intra-abdominal fluid collection, pt can follow with general surgery as outpatient. Started on PO BActrim DS daily for SBP prophylaxis Referrals: Tahir Gonzalez DO [Resident] - 01/05/19 10:00 am Winston Rogers MD [Partnered Physician] - 01/20/19 2:30 pm Belkis Rojas CNP [Advanced Practice Nurse] - 01/02/19 11:45 am Shyam Cade MD [Partnered Physician] - (Web request, office will call patient with date and time of appointment. Thank you) Prescriptions: Omeprazole [PriLOSEC] 40 mg PO DAILY #30 cap RX: Sucralfate [Carafate] 1 gm PO 0730,1630 14 Days #28 tablet Sulfamethoxazole/Trimeth DS [Bactrim DS] 1 each PO DAILY #30 tablet
[2018-12-31] MEDS ORDERED: 0.9 % Sodium Chloride 250 ML IVC ONE (04:17)
[2018-12-31] MEDS ORDERED: 0.9 % Sodium Chloride 500 ML IVC ONE (05:43)
[2018-12-31] MEDS: Pantoprazole 40 MG VIAL IVP SCH (05:44)
--- NOTE | 2018-12-31 06:25 | Event Note ---
Date of Encounter: 12/31/18 Time of Encounter: 04:12 Alerted by patient's nurse LUCRECIA Vásquez that patient was admitted with anemia. Repeat manually 92/50. One-time order to 50 bolus to be administered over 30 minutes placed. Nurse instructed to continue monitoring BP closely and keep me updated. Alerted 05:40 that patient's BP after bolus was 80/52 manually. Discussed patient with Dr. Carrasco before with recommendation to administer 500 bolus. Nurse instructed to continue monitoring patient's BP closely and notify me immediately of any adverse changes.
[2018-12-31 09:09] LABS: Basophils # 0.1 K/mcL (0.0-0.2); Basophils % 0.8 %; Eosinophils # 0.2 K/mcL (0.0-0.6); Eosinophils % 1.6 %; Hemoglobin 7.4 g/dL (12.9-16.9); Immature Granulocytes % 0.5 % (0-4); Lymphocytes # 0.8 K/mcL (0.6-4.6); Mean Corpuscular HGB Conc 32.2 g/dL (31.6-35.5); Mean Corpuscular Hemoglobin 32.2 pg (28.0-33.3); Mean Platelet Volume 8.9 fL (9.4-12.4); Monocytes # 1.7 K/mcL (0.0-1.3); Monocytes % 15.6 %; Neutrophils # 8.1 K/mcL (1.6-8.9); Platelet Count 201 K/mcL (140-400); Red Cell Distribution Width 20.2 % (11.5-14.5); Segmented Neutrophils % 74.5 %
[2018-12-31 09:30] LABS: BUN/Creatinine Ratio 30 (6-26); Blood Urea Nitrogen 17 mg/dL (8-23); Calcium 8.6 mg/dL (8.6-10.3); Carbon Dioxide 31 mEq/L (23-29); Chloride 95 mEq/L (98-107); Glucose 93 mg/dL (70-105); Magnesium 1.7 mg/dL (1.6-2.6); Osmolality,Calculated 277 (280-300); Potassium 3.9 mEq/L (3.5-5.1); Sodium 133 mEq/L (136-145); eGFR For Non-African Americans > 60 (> 60)
[2018-12-31] MEDS: Sucralfate 1 GM TABLET PO SCH (10:34)
[2018-12-31] MEDS: Multivit/Ca/Min/Fe/FA 1 TAB TABLET PO SCH (10:34)
[2018-12-31] MEDS: Bumetanide 1 MG TABLET PO SCH (10:34)
--- NOTE | 2018-12-31 11:29 | Discharge Summary ---
- NOTES TO OUTPATIENT PROVIDER Notes to Outpatient Provider: Patient with history of complex ascites/intra- abdominal abscess s/p op on 12/15 was admitted for anemia and claudication. Required 4U of pRBC transfusion. EGD showed mod-severe erosive/ulcerative esophagitis. He also had CTA of the aorta with LE runoff with showed extensive s evere, multifocal atherosclerotic plaques on bilateral SFA, PA, and trifurcation vessels. He was seen by vascular surgery and the decision was made to manage conservatively for now. Follow up with GI and Vascular surgery as outpatient. ASA to be started after 2 weeks of Carafate per GI. As for redemonstration of a large intra-abdominal fluid collection (that was operated on 11/2018), patient does not have any fever/leukocytosis/signs of sepsis. Discussion was made with the primary surgeon and will monitor as an outpatient while being started on SBP prophylaxis with Bactrim per GI. Date of Encounter: 12/31/18 Time of Encounter: 07:45 - Discharge Diagnosis (1) PAD (peripheral artery disease) Priority: Secondary Status: Chronic (2) CAD (coronary artery disease) Priority: Secondary Status: Chronic Qualifiers: Coronary Disease-Associated Artery/Lesion type: [place] artery [place] vs. transplanted heart: [place] heart Associated angina: without angina Qualified Code(s): I25.10 - Atherosclerotic heart disease of [place] coronary artery without angina pectoris (3) Intraabdominal fluid collection Priority: Secondary Status: Acute (4) Acute on chronic blood loss anemia Priority: Primary Status: Suspected (5) Ventricular tachycardia Priority: Secondary Status: Acute Hospital course: Mr. Ayala is a 68 year old male with PMHx of CAD, PAD, HTN, complex ascites/intra-abdominal abscess s/p op on 12/15/2018, who was admitted for anemia and disabling claudication. Required 4U of pRBC transfusion. EGD showed mod- severe erosive/ulcerative esophagitis. He also had CTA of the aorta with LE runoff with showed extensive severe, multifocal atherosclerotic plaques on bilateral SFA, PA, and trifurcation vessels. He was seen by vascular surgery and the decision was made to manage conservatively for now given his anemia and ongoing ascites. Follow up with GI and Vascular surgery as outpatient. ASA to be started after 2 weeks of Carafate per GI. As for redemonstration of a large intra-abdominal fluid collection (that was operated on 11/2018), patient does not have any fever/leukocytosis/signs of sepsis. Discussion was made with the primary surgeon and will monitor as an outpatient while being started on SBP prophylaxis with Bactrim per GI. Discharge discussed with: patient, family, nurse - Time Spent with Patient Total time spent providing and/or coordinating discharge services: 31 mins - Discharge Medications Prescriptions: New Omeprazole [PriLOSEC] 40 mg PO DAILY #30 cap Sucralfate [Carafate] 1 gm PO 0730,1630 14 Days #28 tablet Sulfamethoxazole/Trimeth DS [Bactrim DS] 1 each PO DAILY #30 tablet Continue Multivit-Min/FA/Lycopen/Lutein [Centrum Silver Tablet] 1 tab PO DAILY Bumetanide 2 mg PO BID Discontinued Aspirin [Lo-Dose Aspirin EC] 81 mg PO DAILY Carvedilol 12.5 mg PO BID Home Medications: Multivit-Min/FA/Lycopen/Lutein [Centrum Silver Tablet] 1 tab PO DAILY 11/22/18 [History] Bumetanide 2 mg PO BID 12/28/18 [History] Omeprazole [PriLOSEC] 40 mg PO DAILY #30 cap 12/31/18 [Rx] Sucralfate [Carafate] 1 gm PO 0730,1630 14 Days #28 tablet 12/31/18 [Rx] Sulfamethoxazole/Trimeth DS [Bactrim DS] 1 each PO DAILY #30 tablet 12/31/18 [Rx] Allergies/Adverse Reactions: Allergy/AdvReac Type Severity Reaction Status Date / Time No Known Allergies Allergy Verified 11/22/18 18:25 Date of admission: 12/28/18 23:54 Primary care physician: PCP NONE Consults: 12/28/18 23:34 Consult to Gastroenterology [CONS] Routine Consulting Provider: Gastroenterology [place] Reason for Consult: anemia; ? UGI bleed; duodenal ulcer Call Completed: No Consult to Physician [CONS] Routine Consulting Provider: Gen [place] Reason for Consult: aortic occlusion Call Completed: Yes 12/30/18 09:30 Consult to Vascular Surgery [CONS] Routine Consulting Provider: Vascular Surgery [place] Reason for Consult: LE numbness/pain Call Completed: Yes - Constitutional Vitals: Temp Pulse Resp BP Pulse Ox 98.2 F 61 15 98/60 93 03/13/19 10:25 12/31/18 10:25 12/31/18 10:25 12/31/18 10:25 12/31/18 06:24 General appearance: Present: cooperative, A&O X 3, pleasant, answers questions appropriately Exam: General: alert and oriented x 3, not in distress Heart: Regular rate and rhythm, no murmurs, rubs or gallops Lungs: Clear to auscultation bilaterally, no rales, wheezes Abdomen: Soft, mildly distended, no tenderness. Normoactive bowel sounds. No rebound/rigidity/guarding Neuro: Non-focal. No asterixis - Patient Status Disposition: Home Health Service Condition: Good Functional capacity at discharge: independent ambulation Overall status at discharge: patient is progressing back to baseline - Discharge Instructions Instructions: Anemia (GEN), Peripheral Vascular Disorders (DC) Follow Up With: Lambert Hubbard [Resident] - Winston Rogers MD [Partnered Physician] - Shyam Cade MD [Partnered Physician] - Aidee Monge [Partnered Physician] - Additional Instructions: PPI daily and carafate BID for 2 weeks Resume ASA in 2 weeks per GI follow up with GI and vascular surgery as outpatient As for redemonstration of intra-abdominal fluid collection, pt can follow with general surgery as outpatient. Started on PO BActrim DS daily for SBP prophylaxis - Diet and Activity Activity: resume usual activities as tolerated Diet: regular diet
--- NOTE | 2018-12-31 11:39 | Physician Discharge Referral ---
Home Health/Hosp Referral Info Transfer to: Home Health - Diagnosis (1) PAD (peripheral artery disease) Priority: Secondary Status: Chronic (2) CAD (coronary artery disease) Priority: Secondary Status: Chronic (3) Intraabdominal fluid collection Priority: Secondary Status: Acute (4) Acute on chronic blood loss anemia Priority: Primary Status: Suspected (5) Ventricular tachycardia Priority: Secondary Status: Acute - Respiratory Orders Smoking Cessation: Smoking cessation has been advised. For more information, call the [place] Tobacco Quit Line at 3-105-JBBE-NOW. - Services Needed Following services are medically necessary services: Nursing - Transfer Medications Prescriptions: Omeprazole [PriLOSEC] 40 mg PO DAILY #30 cap Sucralfate [Carafate] 1 gm PO 0730,1630 14 Days #28 tablet Sulfamethoxazole/Trimeth DS [Bactrim DS] 1 each PO DAILY #30 tablet Home Medications: Multivit-Min/FA/Lycopen/Lutein [Centrum Silver Tablet] 1 tab PO DAILY 11/22/18 [History] Bumetanide 2 mg PO BID 12/28/18 [History] Omeprazole [PriLOSEC] 40 mg PO DAILY #30 cap 12/31/18 [Rx] Sucralfate [Carafate] 1 gm PO 0730,1630 14 Days #28 tablet 12/31/18 [Rx] Sulfamethoxazole/Trimeth DS [Bactrim DS] 1 each PO DAILY #30 tablet 12/31/18 [Rx] Allergies/Adverse Reactions: Allergy/AdvReac Type Severity Reaction Status Date / Time No Known Allergies Allergy Verified 11/22/18 18:25 Certification: Further, I certify that my clinical findings support that this patient is homebound (i.e. absences from home require considerable and taxing effort and are for medical reasons or [employer] services or infrequently or short duration when for other reasons) because: Homebound Reason: Patient requires assistance of a person or device to safely leave home Attestation: My signature below is to certify that this patient is under my care and that I, or nurse practitioner, or a physician's anesthesia assistant working with me, has a [id number] encounter with this patient.
[2018-12-31 14:07] VITALS: BP 94/53
--- NOTE | 2019-01-02 19:20 | Electrocardiograph Report ---
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
== END 2018-12-31 15:20 | disposition home health service (06) | DRG 812 ==
LOC: EMEROOARM 14:28 → 3ANU 14:28 → SUATTDRO 23:54
PROVIDERS: ADMIT Family Medicine; ATTEND Internal Medicine